=== PATIENT | female | born 1960 | race Caucasian/White ===

== ENCOUNTER → 2016-02-29 | Outpatient (REF) | payer BC ==
[~2016-02-29] MED LIST: ACET65TA; ADVAIR; ALBU17IN2; ANTI25TA; BABY81CH; DEPA500T2; LISI10TA4; MAXZ75TA2; PROV90AE; SIMV10TA2
[2016-02-29 17:15] LABS: BASO % 0.6 % (0.0-1.0); EOS # 0.2 K/mm3 (0.0-0.50); EOS % 2.2 % (0.0-3.0); LARGE UNSTAINED CELL # 0.1 K/mm3 (0.0-0.4); LYMPH % 23.5 % (24.0-44.0); MEAN CORPUSCULAR HEMOGLOBIN 32.2 pg (27.0-33.0); MEAN CORPUSCULAR HGB CONC 34.6 g/dl (32.0-36.5); MEAN CORPUSCULAR VOLUME 93.1 fl (80.0-96.0); MONO # 0.3 K/mm3 (0.0-0.8); MONO % 3.6 % (0.0-5.0); NEUTROPHILS # 5.9 K/mm3 (1.8-7.7); NEUTROPHILS % 69.1 % (36.0-66.0); PLATELET COUNT, AUTOMATED 297 k/mm3 (150-450); RED CELL DISTRIBUTION WIDTH 11.7 % (11.5-14.5); WHITE BLOOD COUNT 8.6 K/mm3 (4.0-10.0)
[2016-02-29 17:20] LABS: VITAMIN B12 LEVEL 388 PG/ML (247-911)
[2016-02-29 18:32] LABS: ERYTHROCYTE SEDIMENTATION RATE 5 mm/hr (0-30)
[2016-03-02 14:09] LABS: Lyme Disease IgG/IgM Antibodie <0.91 ISR (0.00-0.90); Lyme Disease IgM Ab Quantitati <0.80 index (0.00-0.79)
== END ==
LOC: M SFHCCAPE 07:43
PROVIDERS: ATTEND Physician Assistant
DX: M25.50 Pain in unspecified joint (principal)

== ENCOUNTER → 2016-11-27 | Outpatient (REF) | payer BC ==
[2016-11-27 17:36] LABS: BASO % 0.4 % (0.0-1.0); EOS # 0.2 10^3/uL (0.0-0.50); EOS % 1.7 % (0.0-3.0); IMMATURE GRANULOCYTE % 0.3 % (0-0); LYMPH # 2.2 10^3/uL (1.5-4.5); LYMPH % 21.9 % (24.0-44.0); MEAN CORPUSCULAR HEMOGLOBIN 31.7 pg (27.0-33.0); MEAN CORPUSCULAR HGB CONC 33.9 g/dl (32.0-36.5); MEAN CORPUSCULAR VOLUME 93.6 fl (80.0-96.0); MONO # 0.5 10^3/uL (0.0-0.8); MONO % 5.1 % (0.0-5.0); NEUTROPHILS # 7.1 10^3/uL (1.8-7.7); NEUTROPHILS % 70.6 % (36.0-66.0); PLATELET COUNT, AUTOMATED 278 10^3/uL (150-450); RED CELL DISTRIBUTION WIDTH 11.9 % (11.5-14.5); WHITE BLOOD COUNT 10.1 10^3/uL (4.0-10.0)
[2016-11-27 17:47] LABS: ADD MORPHOLOGY? NO
[2016-11-27 19:36] LABS: ALBUMIN 3.9 GM/DL (3.2-5.2); ALBUMIN/GLOBULIN RATIO 1.26 (1.00-1.93); ALKALINE PHOSPHATASE 106 U/L (45-117); ALT/SGPT 25 U/L (12-78); ANION GAP 7 MEQ/L (8-16); AST/SGOT 10 U/L (15-37); BLOOD UREA NITROGEN 10 MG/DL (7-18); CARBON DIOXIDE LEVEL 28 MEQ/L (21-32); CHLORIDE LEVEL 108 MEQ/L (98-107); CHOLESTEROL LEVEL 180 MG/DL (<200); FREE T4 0.84 NG/DL (0.76-1.46); GLOMERULAR FILTRATION RATE > 60.0 (>51); GLUCOSE, FASTING 80 MG/DL (70-105); POTASSIUM SERUM 4.2 MEQ/L (3.5-5.1); SODIUM LEVEL 143 MEQ/L (136-145); TRIGLYCERIDES LEVEL 158 MG/DL (<150)
== END ==
LOC: M SFHCCAPE 07:01
PROVIDERS: ATTEND Physician Assistant
DX: I10 Essential (primary) hypertension (principal)

== ENCOUNTER → 2017-09-11 | Outpatient (REF) | payer BC ==
[2017-09-11 16:50] LABS: ALBUMIN 4.2 GM/DL (3.2-5.2); ALBUMIN/GLOBULIN RATIO 1.24 (1.00-1.93); ALKALINE PHOSPHATASE 107 U/L (45-117); ALT/SGPT 25 U/L (12-78); ANION GAP 8 MEQ/L (8-16); AST/SGOT 10 U/L (7-37); BILIRUBIN,TOTAL 0.9 MG/DL (0.2-1.0); BLOOD UREA NITROGEN 16 MG/DL (7-18); CALCIUM LEVEL 9.6 MG/DL (8.5-10.1); CARBON DIOXIDE LEVEL 29 MEQ/L (21-32); CHLORIDE LEVEL 107 MEQ/L (98-107); CHOLESTEROL LEVEL 151 MG/DL (<200); CHOLESTEROL RISK RATIO 2.849 (<5); CREATININE FOR GFR 0.71 MG/DL (0.55-1.30); GLOMERULAR FILTRATION RATE > 60.0 (>51); GLUCOSE, FASTING 89 MG/DL (70-100); HDL CHOLESTEROL 53 MG/DL (>40); LDL CHOLESTEROL 81.6 MG/DL (<100); NON-HDL-C 98 MG/DL; POTASSIUM SERUM 3.9 MEQ/L (3.5-5.1); SODIUM LEVEL 144 MEQ/L (136-145); TOTAL PROTEIN 7.6 GM/DL (6.4-8.2); TRIGLYCERIDES LEVEL 82 MG/DL (<150)
[2017-09-11 17:06] LABS: BASO % 0.4 % (0.0-1.0); EOS # 0.2 10^3/uL (0.0-0.50); EOS % 1.6 % (0.0-3.0); HEMATOCRIT 45.1 % (36.0-47.0); HEMOGLOBIN 15.7 g/dl (12.0-15.5); IMMATURE GRANULOCYTE % 0.3 % (0-3.0); LYMPH # 2.6 10^3/uL (1.5-4.5); LYMPH % 24.6 % (24.0-44.0); MEAN CORPUSCULAR HEMOGLOBIN 32.4 pg (27.0-33.0); MEAN CORPUSCULAR HGB CONC 34.8 g/dl (32.0-36.5); MONO # 0.6 10^3/uL (0.0-0.8); MONO % 5.6 % (0.0-5.0); NEUTROPHILS # 7.1 10^3/uL (1.8-7.7); NEUTROPHILS % 67.5 % (36.0-66.0); PLATELET COUNT, AUTOMATED 324 10^3/uL (150-450); RED BLOOD COUNT 4.85 10^6/uL (4.00-5.40); RED CELL DISTRIBUTION WIDTH 11.8 % (11.5-14.5); WHITE BLOOD COUNT 10.5 10^3/uL (4.0-10.0)
== END ==
LOC: M SFHCCAPE 07:49
DX: I10 Essential (primary) hypertension (principal); E78.5 Hyperlipidemia, unspecified

== ENCOUNTER → 2017-09-22 | Outpatient (CLI) | payer BC | LOC: M RAD 07:50 | DX: Z87.891 Personal history of nicotine dependence (principal); Z12.2 Encounter for screening for malignant neoplasm of respiratory organs | CPT/HCPCS: G0297 ==

== ENCOUNTER → 2018-06-16 | Outpatient (REF) | payer BC | LOC: M LAB REF 13:42 | PROVIDERS: ATTEND Physician Assistant | DX: N63.20 Unspecified lump in the left breast, unspecified quadrant (principal) ==

== ENCOUNTER → 2018-10-13 | Outpatient (REF) | payer BC ==
[2018-10-13 16:45] LABS: BASO % 0.4 % (0.0-1.0); EOS # 0.3 10^3/uL (0.0-0.50); EOS % 3.6 % (0.0-3.0); HEMATOCRIT 43.3 % (36.0-47.0); HEMOGLOBIN 14.9 g/dl (12.0-15.5); LYMPH # 1.5 10^3/uL (1.5-4.5); MEAN CORPUSCULAR HEMOGLOBIN 32.1 pg (27.0-33.0); MEAN CORPUSCULAR HGB CONC 34.4 g/dl (32.0-36.5); MEAN CORPUSCULAR VOLUME 93.3 fl (80.0-96.0); MONO # 0.5 10^3/uL (0.0-0.8); MONO % 6.4 % (0.0-5.0); NEUTROPHILS # 5.8 10^3/uL (1.8-7.7); NEUTROPHILS % 71.2 % (36.0-66.0); PLATELET COUNT, AUTOMATED 271 10^3/uL (150-450); RED BLOOD COUNT 4.64 10^6/uL (4.00-5.40); WHITE BLOOD COUNT 8.2 10^3/uL (4.0-10.0)
[2018-10-13 17:12] LABS: ALBUMIN 3.8 GM/DL (3.2-5.2); ALT/SGPT 19 U/L (12-78); BLOOD UREA NITROGEN 19 MG/DL (7-18); CALCIUM LEVEL 8.9 MG/DL (8.5-10.1); CARBON DIOXIDE LEVEL 25 MEQ/L (21-32); CHLORIDE LEVEL 110 MEQ/L (98-107); CHOLESTEROL LEVEL 151 MG/DL (<200); CHOLESTEROL RISK RATIO 2.903 (<5); CREATININE FOR GFR 0.79 MG/DL (0.55-1.30); GLOMERULAR FILTRATION RATE > 60.0 (>51); GLUCOSE, FASTING 92 MG/DL (70-100); HDL CHOLESTEROL 52 MG/DL (>40); LDL CHOLESTEROL 79 MG/DL (<100); NON-HDL-C 99 MG/DL; POTASSIUM SERUM 4.5 MEQ/L (3.5-5.1); SODIUM LEVEL 142 MEQ/L (136-145); TOTAL PROTEIN 6.4 GM/DL (6.4-8.2); TRIGLYCERIDES LEVEL 101 MG/DL (<150)
== END ==
LOC: M SFHCCAPE 07:02
PROVIDERS: ATTEND Physician Assistant
DX: E78.5 Hyperlipidemia, unspecified (principal)

== ENCOUNTER → 2018-11-02 | Outpatient (CLI) | payer BC ==
--- NOTE | 2018-11-02 18:39 | REP ---
CT chest without contrast: Low-dose screening exam. History: Nicotine dependence. Comparison chest CT study is from September 22, 2017. Comparison chest x-ray April 07, 2015. Chest CT findings: Preliminary digital transportation agent radiograph is unremarkable. There is minimal linear fibrosis in the right base. This is unchanged. Axial CT images demonstrate fibrotic changes in both lung bases status quo. There is a new 6 mm less than solid nodular density in the right lower lobe on page 62 of 102 in today's exam. There is a new zone of linear fibrosis versus discoid atelectasis in the right apex posteromedially. No other new pulmonary nodule is appreciated. No pulmonary mass lesion is seen. Impression: There is a new less than solid nodular opacity in the right lower lobe 6 mm in diameter. Lung Rads category three probably benign findings. 6-month follow-up CT study recommended. Electronically Signed by Hilton Vallejo MD 11/02/2018 06:40 P
== END ==
LOC: M RAD 10:48
PROVIDERS: ATTEND Physician Assistant
DX: Z12.2 Encounter for screening for malignant neoplasm of respiratory organs (principal); Z87.891 Personal history of nicotine dependence; R91.1 Solitary pulmonary nodule

== ENCOUNTER → 2019-01-13 | Outpatient (CLI) | payer BC ==
[~2019-01-13] MED LIST changes: +ISOVUE-370 76% 100ML VIAL (Q9967) As Ordered ONE
--- NOTE | 2019-01-13 17:27 | REP ---
CT abdomen without and with IV contrast: Without oral contrast. History: Abnormal MRI. Focus of adrenals. No comparison MRI studies available. CT contrast dose: 100 mL of intravenous Isovue 370. Technique: Precontrast 3 mm thin sections are obtained through the adrenals and abdomen. Dual-phase postcontrast imaging is acquired with portal venous and 15-minute delayed phase images. Findings: The noncontrast study demonstrates a low-density left adrenal nodule measuring 2.1 cm in greatest diameter. Mean Hounsfield unit density is -9 Hounsfield units. This is consistent with intralesional fat. There is some contrast enhancement and washout. No right adrenal lesion is observed. No focal hepatic or splenic lesion is seen. A small accessory splenule is noted. No abnormality is noted in the pancreas. The gallbladder is surgically absent. The kidneys enhance symmetrically and are morphologically intact. Impression: There is evidence of a 2.1 cm benign left adrenal adenoma. No other significant abnormality. Post cholecystectomy. Electronically Signed by Hilton Vallejo MD 01/14/2019 10:03 A
== END ==
LOC: M RAD 15:01
PROVIDERS: ATTEND Physician Assistant
DX: D35.02 Benign neoplasm of left adrenal gland (principal); R93.89 Abnormal findings on diagnostic imaging of other specified body structures; Z90.49 Acquired absence of other specified parts of digestive tract
CPT/HCPCS: 74170; Q9967

== ENCOUNTER → 2019-03-11 | Outpatient (CLI) | payer BC ==
[~2019-03-11] MED LIST changes: -ISOVUE-370 76% 100ML VIAL (Q9967) As Ordered ONE
--- NOTE | 2019-03-12 03:05 | ECWPNPC ---
PATIENT NAME: RODNEY GOODWIN : 1960 GENDER: FEMALE VISIT DATE: 03/11/2019 DISCHARGE DATE: 03/11/19 1024 VISIT LOCKED DATE TIME: PHYSICIAN: NAYELI BAJWA RESOURCE: NAYELI BAJWA REASON FOR APPOINTMENT 1. BCBS- LOW BACK PAIN CHECKING IN HISTORY OF PRESENT ILLNESS PAIN SCREENIN-YEAR-OLD FEMALE REFERRED BY MAHNAZ ZIEGLER, [facility] FOR CHRONIC LOW BACK PAIN. PAIN BEGAN IN APPROXIMATELY 2009. DENIES PRECIPITATING EVENT. HIS TRIALED MULTIPLE DIFFERENT MEDICATIONS AND INTERVENTIONAL THERAPY OVER THE PAST 5 YEARS. REPORTS IMPROVEMENT WITH USE OF HYDROCODONE. DENIES IMPROVEMENT WITH INTERVENTIONAL TREATMENTS TO INCLUDE RADIOFREQUENCY ABLATION. FOLLOWS WITH DR. JOSEF DURHAM ORTHOPEDIC SURGEON FOR CHRONIC BACK PAIN. SHE IS STATUS POST RIGHT KNEE REPLACEMENT IN DECEMBER 2018. THEY HAVE BREAST CANCER DIAGNOSED LAST YEAR AND COMPLETED RADIATION IN SEPTEMBER 2018. DESCRIBES PAIN CONTINUOUS AND ACHING. REPORTS EPISODES WHERE PAIN AWAKENS HER FROM SLEEP. RATING PAIN VAS 8/10. DENIES BOWEL OR BLADDER INCONTINENCE. PATIENT HAS A COMPLAINT OF ACUTE OR CHRONIC PAIN :YES FALL RISK SCREENING: SCREENING :NO FALLS REPORTED IN THE LAST YEAR CURRENT MEDICATIONS TAKING TAMOXIFEN CITRATE 10 MG TABLET 1 TABLET ORALLY DAILY TAKING LISINOPRIL 40 40 MG TABLET 1 TAB ORAL ONCE DAILY TAKING MOBIC 15 MG TABLET 1 TABLET ORALLY ONCE A DAY TAKING VENTOLIN HFA 108 (90 BASE) MCG/ACT AEROSOL SOLUTION 2 PUFFS INHALATION 4 TIMES A DAY NEEDED TAKING SYMBICORT 80-4.5 MCG/ACT AEROSOL 2 PUFFS INHALATION TWICE A DAY TAKING LIPITOR 40 MG TABLET 1 TABLET ORALLY ONCE A DAY TAKING AMLODIPINE BESYLATE 10 MG TABLET 1 TABLET ORALLY ONCE A DAY TAKING LASIX 40 MG TABLET 1 TABLET ORALLY DAILY PRN NOT-TAKING GABAPENTIN 100 MG CAPSULE 1 CAPSULE ORALLY ONCE A DAY NOT-TAKING NORCO 5-325 MG TABLET 1 TABLET NEEDED ORALLY EVERY 8 HOURS (MDD3) NOT-TAKING ASPIRIN 325 MG TABLET 1 TABLET ORALLY ONCE A DAY NOT-TAKING FLUCONAZOLE 150 MG TABLET 1 TABLET ORALLY DAILY MEDICATION LIST REVIEWED AND RECONCILED WITH THE PATIENT PAST MEDICAL HISTORY HYPERTENSION ASTHMA HYPERLIPIDEMIA TENOSYNOVITIS PERIMENOPAUSE H/O HSV STRESS TEST DONE BY DR RODRIGUES IN 2016 NORMAL BREAST CA BASAL CELL CARCINOMA 2015 CHRONIC LOW BACK PAIN SPINAL STENOSIS ALLERGIES SHRIMP: HIVES, RASH - ALLERGY ACETAMINOPHEN-CODEINE #3: CHEST PAINS - ALLERGY SURGICAL HISTORY HYSTERECTOMY 1994 CHOLECYSTECTOMY 2009 LASIK 1999 HEART CATHETERIZATION 07/2009 BASAL CELL CA, LOWER L NOSTRIL (EXCISED) FOLLOWED BY DR RICKS IN [place] 10/2013 COLONOSCOPY 2014, 201105/15/2011 RIGHT KNEE ARTHOSCOPY 08/2015 LUMPECTOMY-LEFT BREAST 2018 RIGHT KNEE TOTAL REPLACEMENT 12/2018 FAMILY HISTORY FATHER: 83 YRS, AMI, STROKE, DIAGNOSED WITH HYPERTENSION, UNSPECIFIED HEART DISEASE, UNSPECIFIED CEREBRAL ARTERY OCCLUSION WITH CEREBRAL INFARCTION MOTHER: ALIVE 83 YRS, HTN, HIGH CHOLESTEROL, STROKE, PLAVIX, DEPRESSION, HYPERTENSION SIBLINGS: ALIVE 60,59,57 YRS, SISTERS-ALL HTN SON(S): ALIVE 36 YRS, HTN PATERNAL GRAND FATHER: HYPERTENSION PATERNAL GRAND MOTHER: HYPERTENSION 3 SISTER(S) - HEALTHY. 1 SON(S) - HEALTHY. DENIES BREAST, COLON OR OVARIAN CANCER HISTORY. SOCIAL HISTORY GENERAL: TOBACCO USE ARE YOU A:FORMER SMOKER HOW LONG HAS IT BEEN SINCE YOU LAST SMOKED?1-3 MONTHS VAPORNO E-CIGARETTENO SMOKING CESSATION INFORMATION GIVEN01/11/2019 HIV / HEP-C SCREENING HIV TEST OFFERED TO PATIENT:YES DATE OFFERED:01/11/2019 CONSENT SIGNED TEST ACCEPTED:NO HEP-C TEST OFFERED TO PATIENT:YES DATE OFFERED:01/11/2019 REASON:PATIENT DECLINED TEST ACCEPTED:NO CONSENT SIGNED REASON:PATIENT DECLINED BROCHURE PROVIDED TO PATIENTNO -DECLINED OTHERS AT HOME: LIVES WITH HER 1 CAT, 2 DOGS; BOYFRIEND. DIET: NO HX EATING DISORDERS. LANGUAGE YAKUT. DOMESTIC VIOLENCE DO YOU FEEL SAFE IN YOUR ENVIRONMENT?YES NEW PATIENT PAIN DIARY FROM 0-10, WHAT LEVEL IS YOUR PAIN TODAY? 05/03 CHRONIC BACK PAIN BMI CARE GOAL FOLLOW-UP ABOVE NORMAL BMI FOLLOW-UPDIETARY NEEDS EDUCATION RECREATIONAL DRUG USE DRUG USE?NO EXERCISE: WALKING AND VERY ACTIVE THROUGH WORK AT [employer]. LEARNING BARRIERS / SPECIAL NEEDS CHANGE FROM LAST VISIT?NO 01/11/19 BARRIERS TO LEARNING?NO HEARING IMPAIRED?NO VISION IMPAIRED?YES :CORRECTIVE LENSES COGNITIVELY IMPAIRED?NO READINESS TO LEARN?YES LEARNING PREFERENCES?NO LEARNING CAPABILITIES PRESENT?YES EMOTIONAL BARRIERS?NO SPECIAL DEVICES?NO EVENT DECORATOR AND DESIGNER NEEDED?NO LUNG CANCER SCREENING SMOKING STATUS:FORMER SMOKER IS THE PATIENT BETWEEN THE AGE OF 54 AND 76?YES HAVE YOU QUIT SMOKING WITHIN THE PAST 15 YEARS?YES PAIN CLINIC PFS, CLERGY, PUBLIC HEALTH REFERRALS HAS THE PATIENT BEEN EDUCATED REGARDING HIS/HER PLAN OF CARE?YES HAS THE PATIENT BEEN EDUCATED REGARDING PAIN, THE RISK FOR PAIN, THE IMPORTANCE OF EFFECTIVE PAIN MANAGEMENT, AND THE PAIN ASSESSMENT PROCESS?YES LATEX QUESTIONNAIRE LATEX ALLERGY : HAVE YOU EVER DEVELOPED ANY TYPE OF REACTION AFTER HANDLING LATEX PRODUCTS SUCH RUBBER GLOVES, CONDOMS, DIAPHRAGMS, BALLOONS, SOCKS, OR UNDERWEAR?NO LATEX ALLERGY : HAVE YOU EVER DEVELOPED ANY TYPE OF REACTION DURING OR AFTER DENTAL APPOINTMENT, VAGINAL/RECTAL EXAMINATION, SURGICAL PROCEDURE, OR ANY OTHER EXPOSURE?NO LATEX RISK : HAVE YOU EVER HAD ANY DIFFICULTY BREATHING OR HIVES AFTER EATING OR HANDLING ANY FRUITS, OR VEGETABLES; SUCH KIWI, BANANAS, STONE FRUITS, OR CHESTNUTSNO LATEX RISK : DO YOU HAVE A PREVIOUS PERSONAL HISTORY OF MORE THAN NINE SURGERIES, SPINA BIFIDA, OR REPEATED CATHERIZATIONS? NO LATEX RISK : ARE YOU FREQUENTLY EXPOSED TO LATEX PRODUCTS IN YOUR OCCUPATION?YES PT STATES SHE USES LATEX PRODUCTS AT WORK DATE ASKED : 03/11/2019 CAFFEINE 2/DAY. ADVANCE DIRECTIVE ADVANCE DIRECTIVE DISCUSSED WITH PATIENT:YES PT DOES NOT HAVE HCP AND DECLINES INFORMATION OR ASSISTANCE WITH FORM TODAY. 03/11/19 PENTECOSTAL NO ZOROASTRIANISM BELIEFS THAT WOULD IMPACT HEALTH CARE. MARITAL STATUS: . 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 REVIEWED WITH PATIENT 03/11/2019 0940 BV. HOSPITALIZATION/MAJOR DIAGNOSTIC PROCEDURE SURGERY REVIEW OF SYSTEMS REVIEWED BY: PROVIDER: NAYELI CRUZ . CONSTITUTIONAL: ANY CHANGE IN YOUR MEDICAL CONDITION? NO . CHILLS NO . FEVER NO . INFECTION: DO YOU HAVE NEW INFECTIONS? NO . DO YOU HAVE HISTORY OF MRSA? NO . MUSCULOSKELETAL: ANY NEW PATTERNS OF PAIN OR NUMBNESS? NO . SYTEMIC LUPUS NO . GASTROENTEROLOGY: ANY NEW CHANGE IN BOWEL CONTROL? NO . BARRETTS ESOPHAGUS NO . CIRRHOSIS NO . HEPATITIS NO . LIVER FAILURE NO . ACID REFLUX NO . UNEXPLAINED WEIGHT LOSS NO . GENITOURINARY: ANY NEW CHANGE IN BLADDER CONTROL? NO . IS THERE A CHANCE YOU COULD BE ? NO . HEMATOLOGY/LYMPH: DO YOU TAKE ANY BLOOD THINNERS? (FOR EXAMPLE- COUMADIN, PLAVIX, AGGRENOX, PLATEL, PRADAXA, OR XARELTO) NO . WHEN WAS YOUR LAST DOSE? DATE: TIME: . LOW PLATELET COUNT NO . SICKLE CELL DISEASE NO . VON WILLIEBRANDS NO . FACTOR V LEIDEN NO . THALLASEMIA NO . ANEMIA NO . EASY BRUISING NO . NEUROLOGY: HAVE YOU FALLEN IN THE PAST 12 MONTHS? NO . ANY NEW EXTREMITY NUMBNESS OR WEAKNESS? NO . HEAD INJURY NO . DEMENTIA NO . CEREBRAL PALSY NO . MULTIPLE SCLEROSIS NO . DIZZINESS NO . HEADACHE NO . STROKES NO . VERTIGO NO . CARDIOLOGY: DO YOU HAVE A PACEMAKER OR DEFIBRILLATOR? NO . ANGINA NO . HEART ATTACK NO . HEART SURGERY NO . CONGESTIVE HEART FAILURE/FLUID OVERLOAD NO . CHEST PAIN NO . HIGH BLOOD PRESSURE NO, ON MEDICATION(S) . IRREGULAR HEART BEAT NO . RESPIRATORY: HAVE YOU BEEN SICK IN THE PAST WEEK? NO . FEVER NO . FLU LIKE SYMPTOMS? NO . CPAP NO . BYPAP NO . ASTHMA YES, MILD . EMPHYSEMA NO . CHRONIC LUNG DISEASES NO . SHORTNESS OF BREATH ON EXERTION NO . COUGH NO . SNORING NO . INTEGUMENTARY: DO YOU HAVE ANY RASHES OR OPEN SORES? NO . ALLERGIC/IMMUNO: ARE YOU ALLERGIC TO IV DYE? NO . ANY NEW ALLERGIES? NO . PSYCHIATRIC: DO YOU HAVE THOUGHTS OF HURTING YOURSELF OR SOMEONE ELSE? NO . ARE YOU ABUSED, NEGLECTED, OR IN AN UNSAFE ENVIRONMENT? NO . ENDOCRINOLOGY: ARE YOU DIABETIC? NO . THYROID DISORDER NO . OTHER: DO YOU NEED ANY PRESCRIPTIONS? NO . IF YES, PLEASE LIST: ____ . ANY NEW PROBLEMS WITH YOUR MEDICATIONS? NO . WHEN DID YOU LAST EAT? ____ . WHEN DID YOU LAST DRINK? ____ . WHAT DID YOU LAST DRINK? ____ . NAME OF PERSON DRIVING YOU HOME? ____ . DO YOU HAVE ANY OTHER QUESTIONS OR CONCERNS NO . VITAL SIGNS WT 198.2 LBS, HT 67 IN, BMI 31.04 INDEX, BP 141/79 MM HG, HR 104 /MIN, RR 18 /MIN, TEMP 98.5 F, OXYGEN SAT % 98%, SAFE IN ENV? (Y/N) YES, NA INITIALS BERE YU 03/11/2019 9:28. EXAMINATION GENERAL EXAMINATION: GENERALAWAKE,ALERT ,PLEAASANT . PSYCHAFFECT NORMAL . NECK:TRACHEA MIDLINE. NO CERVICAL OR SUPRACLAVICULAR LYMPHADENOPATHY NOTED. LUNGS:LUNG GIANG ARE CLEAR TO AUSCULTATION BILATERALLY. GOOD MOVEMENT OF AIR . HEART:S1, S2 IN A REGULAR RATE AND RHYTHM. NO SIGNIFICANT MURMURS, RUBS OR GALLOPS NOTED . ABDOMEN:SOFT/NONTENDER. MUSCULOSKELETAL:WEEK OVER RIGHT LEG.. FOR BILAT. SIJ PALPATION:POSITIVE FOR PAIN OVER L/S SPINE. POSITIVE FOR PAIN OVER L/S PARASPINALS. , TRIGGER POINT-BILAT THORACIC AND LUMBAR PARASPINAL TENDER OVER LEFT SIJ. CERVICALNEGATIVE FOR PAIN WITH PALPATION OF CERVICAL SPINE. NEGATIVE FOR PAIN WITH PALPATION OF CERVICAL PARASPINALS. NEGATIVE FOR PAIN WITH PALPATION OF TRAPEZIUS BILAT. SKIN:NO RASH OR SKIN LESIONS. NEUROLOGIC EXAM:CN'S NORMAL TESTED . DIAGNOSTIC TESTS REVIEWEDMRI L/S SPINE-12/23/2018 . ASSESSMENTS LUMBAR FACET ARTHROPATHY - M47.816 (PRIMARY) TREATMENT LUMBAR FACET ARTHROPATHY START NORCO TABLET, 5-325 MG, 1 TABLET NEEDED, ORALLY, Q8H PRN MDD3 #40 TAB SHOULD LAST 30 DAYS, 30 DAYS, 40, REFILLS 0 NOTES: ISTOP REGISTRY REVIEWED AND DEMONSTRATES COMPLLIANCE., RISKS OF NARCOTIC/OPIOD MEDICATIONS INCLUDES BUT IS NOT LIMITED TO RISK OF DEPENDANCE/DEVELOPMENT OF ADDICTION, MOOD DISTURBANCE AND DEPRESSION, OSTEOPOROSIS, HORMONAL AND LABIDAL CHANGES, RESPIRATORY DEPRESSION AND . PATIENT IS ADVISED NOT TO DRIVE OR DRINK ALCOHOL WHILE ON THESE MEDICATIONS, [facility] NARCOTIC AGREEMENT WAS REVIEWED AND SIGNED TODAY BY THE PATIENT. SEE ATTACHED DOCUMENT FOR FULL DETAILS; SPECIFIC ISSUES WERE REVIEWED: 1) KEEP PAIN MEDS IN THEIR ORIGINAL BOTTLES AND ANY WEEKLY PLANNERS ARE TO BE BROUGHT TO THE PAIN CENTER AT EVERY VISIT. 2) THE PATIENT IS NOT TO INCREASE DOSING OR TIMING OF THEIR PAIN MEDICATION WITHOUT SPECIFIC DIRECTION OF THEIR PAIN CENTERPROVIDER (NOT ER OR OTHER PROVIDERS). 3) ALL PAIN MEDS ARE TO BE KEPT SECURED, IN A LOCKED BOX. 4) NO PAIN MEDS ARE TO BE SHARED WITH ANY OTHER PERSON FOR ANY REASON. 5) NO PAIN MEDS MAY BE TAKEN FROM ANY FRIENDS OR RELATIVES FOR ANY REASON 6) NO MEDS OR SUBSTANCES WHICH ARE NOT LEGAL ARE TO BE USED- NO MARIJUANA, NO COCAINE, AMPHETAMINES, HEROIN, OR OTHERS ARE EVER TO BE USED. 7)URINE TESTING IS DONE TO ACCOUNT FOR MEDS AND SUBSTANCES BEING TAKEN AND WILL BE DONE RANDOMLY. PROCEDURE CODES FA211 ESTABILISHED PATIENT [facility] FACILITY CHARGE DISPOSITION & COMMUNICATION FOLLOW UP 6 WEEKS (REASON: MED MGMNT) ELECTRONICALLY SIGNED BY NANCY MUNIZ ON 03/11/2019 AT 03:09 PM EST DISCLAIMER : THIS IS A VISIT SUMMARY EXTRACTED FROM THE [employer] CHART. IT IS NOT A COPY OF THE [employer] PROGRESS NOTE. JAVIER
== END ==
LOC: M PAIN 09:00
PROVIDERS: ATTEND Nurse Practitioner Family
DX: M47.816 Spondylosis without myelopathy or radiculopathy, lumbar region (principal)

== ENCOUNTER → 2019-04-13 | Outpatient (CLI) | payer BC ==
--- NOTE | 2019-04-27 05:57 | ECWPNPC ---
PATIENT NAME: RODNEY GOODWIN : 1960 GENDER: FEMALE VISIT DATE: 04/13/2019 DISCHARGE DATE: 04/13/19 1005 VISIT LOCKED DATE TIME: PHYSICIAN: NAYELI BAJWA RESOURCE: NAYELI BAJWA REASON FOR APPOINTMENT 1. 4-6 WEEKS HISTORY OF PRESENT ILLNESS HISTORY OF PRESENT ILLNESS: HERE FOR HER 6 WEEK FOLLOW-UP AND MEDICINE MANAGEMENT FOR CHRONIC LOW BACK PAIN. CURRENTLY USING HYDROCODONE 5/325 PERIODICALLY FOR SEVERE PAIN EPISODES, WHICH SHE FINDS HELPFUL WITHOUT SIDE EFFECTS. FOLLOWING WITH DR. BAHENA ORTHOPEDIC SURGEON IN [place]. HAD INJECTION THERAPY IN THE RECENT PAST AT THEIR OFFICE, WHICH WAS NOT HELPFUL. SHE CURRENTLY IS LAID OFF BUT WOULD CONSIDER DOING INTERVENTIONAL TREATMENTS ONCE SHE IS BACK TO WORK AND PAIN WILL BE INCREASED. RATING PAIN LEVEL AN 8/10 VAS. APPEARS COMFORTABLE AND SMILING DURING INTERVIEW. PAIN THE PATIENT DESCRIBES THE PAIN... FALL RISK SCREENING: SCREENING :NO FALLS REPORTED IN THE LAST YEAR CURRENT MEDICATIONS TAKING TAMOXIFEN CITRATE 10 MG TABLET 1 TABLET ORALLY DAILY TAKING LISINOPRIL 40 40 MG TABLET 1 TAB ORAL ONCE DAILY TAKING MOBIC 15 MG TABLET 1 TABLET ORALLY ONCE A DAY TAKING VENTOLIN HFA 108 (90 BASE) MCG/ACT AEROSOL SOLUTION 2 PUFFS INHALATION 4 TIMES A DAY NEEDED TAKING SYMBICORT 80-4.5 MCG/ACT AEROSOL 2 PUFFS INHALATION TWICE A DAY TAKING LIPITOR 40 MG TABLET 1 TABLET ORALLY ONCE A DAY TAKING AMLODIPINE BESYLATE 10 MG TABLET 1 TABLET ORALLY ONCE A DAY TAKING LASIX 40 MG TABLET 1 TABLET ORALLY DAILY PRN TAKING NORCO 5-325 MG TABLET 1 TABLET NEEDED ORALLY Q8H PRN MDD3 #40 TAB SHOULD LAST 30 DAYS UNKNOWN GABAPENTIN 100 MG CAPSULE 1 CAPSULE ORALLY ONCE A DAY UNKNOWN NORCO 5-325 MG TABLET 1 TABLET NEEDED ORALLY EVERY 8 HOURS (MDD3) UNKNOWN ASPIRIN 325 MG TABLET 1 TABLET ORALLY ONCE A DAY UNKNOWN FLUCONAZOLE 150 MG TABLET 1 TABLET ORALLY DAILY MEDICATION LIST REVIEWED AND RECONCILED WITH THE PATIENT PAST MEDICAL HISTORY HYPERTENSION ASTHMA HYPERLIPIDEMIA TENOSYNOVITIS PERIMENOPAUSE H/O HSV STRESS TEST DONE BY DR RODRIGUES IN 2016 NORMAL BREAST CA BASAL CELL CARCINOMA 2014 CHRONIC LOW BACK PAIN SPINAL STENOSIS ALLERGIES SHRIMP: HIVES, RASH - ALLERGY ACETAMINOPHEN-CODEINE #3: CHEST PAINS - ALLERGY SURGICAL HISTORY HYSTERECTOMY 1994 CHOLECYSTECTOMY 2009 LASIK 1999 HEART CATHETERIZATION 07/2009 BASAL CELL CA, LOWER L NOSTRIL (EXCISED) FOLLOWED BY DR RICKS [place] 10/2013 COLONOSCOPY 2014, 201105/15/2011 RIGHT KNEE ARTHOSCOPY 08/2015 LUMPECTOMY-LEFT BREAST 2019 RIGHT KNEE TOTAL REPLACEMENT 12/2018 FAMILY HISTORY FATHER: 83 YRS, AMI, STROKE, DIAGNOSED WITH HYPERTENSION, UNSPECIFIED HEART DISEASE, UNSPECIFIED CEREBRAL ARTERY OCCLUSION WITH CEREBRAL INFARCTION MOTHER: ALIVE 83 YRS, HTN, HIGH CHOLESTEROL, STROKE, PLAVIX, DEPRESSION, HYPERTENSION SIBLINGS: ALIVE 60,59,57 YRS, SISTERS-ALL HTN SON(S): ALIVE 36 YRS, HTN PATERNAL GRAND FATHER: HYPERTENSION PATERNAL GRAND MOTHER: HYPERTENSION 3 SISTER(S) - HEALTHY. 1 SON(S) - HEALTHY. DENIES BREAST, COLON OR OVARIAN CANCER HISTORY. SOCIAL HISTORY GENERAL: TOBACCO USE ARE YOU A:FORMER SMOKER HOW LONG HAS IT BEEN SINCE YOU LAST SMOKED?1-3 MONTHS VAPORNO E-CIGARETTENO SMOKING CESSATION INFORMATION GIVEN01/11/2019 HIV / HEP-C SCREENING HIV TEST OFFERED TO PATIENT:YES DATE OFFERED:01/11/2019 CONSENT SIGNED TEST ACCEPTED:NO HEP-C TEST OFFERED TO PATIENT:YES DATE OFFERED:01/11/2019 REASON:PATIENT DECLINED TEST ACCEPTED:NO CONSENT SIGNED REASON:PATIENT DECLINED BROCHURE PROVIDED TO PATIENTNO -DECLINED OTHERS AT HOME: LIVES WITH HER 1 CAT, 2 DOGS; BOYFRIEND. DIET: NO HX EATING DISORDERS. LANGUAGE WOLOF. DOMESTIC VIOLENCE DO YOU FEEL SAFE IN YOUR ENVIRONMENT?YES NEW PATIENT PAIN DIARY FROM 0-10, WHAT LEVEL IS YOUR PAIN TODAY? 3/10 CHRONIC BACK PAIN BMI CARE GOAL FOLLOW-UP ABOVE NORMAL BMI FOLLOW-UPDIETARY NEEDS EDUCATION RECREATIONAL DRUG USE DRUG USE?NO EXERCISE: WALKING AND VERY ACTIVE THROUGH WORK AT [employer]. LEARNING BARRIERS / SPECIAL NEEDS CHANGE FROM LAST VISIT?NO 01/11/19 BARRIERS TO LEARNING?NO HEARING IMPAIRED?NO VISION IMPAIRED?YES COGNITIVELY IMPAIRED?NO :CORRECTIVE LENSES READINESS TO LEARN?YES LEARNING PREFERENCES?NO LEARNING CAPABILITIES PRESENT?YES EMOTIONAL BARRIERS?NO SPECIAL DEVICES?NO METAL TRIM ERECTOR NEEDED?NO LUNG CANCER SCREENING SMOKING STATUS:FORMER SMOKER IS THE PATIENT BETWEEN THE AGE OF 54 AND 76?YES HAVE YOU QUIT SMOKING WITHIN THE PAST 15 YEARS?YES PAIN CLINIC PFS, CLERGY, PUBLIC HEALTH REFERRALS HAS THE PATIENT BEEN EDUCATED REGARDING HIS/HER PLAN OF CARE?YES HAS THE PATIENT BEEN EDUCATED REGARDING PAIN, THE RISK FOR PAIN, THE IMPORTANCE OF EFFECTIVE PAIN MANAGEMENT, AND THE PAIN ASSESSMENT PROCESS?YES LATEX QUESTIONNAIRE LATEX ALLERGY : HAVE YOU EVER DEVELOPED ANY TYPE OF REACTION AFTER HANDLING LATEX PRODUCTS SUCH RUBBER GLOVES, CONDOMS, DIAPHRAGMS, BALLOONS, SOCKS, OR UNDERWEAR?NO LATEX ALLERGY : HAVE YOU EVER DEVELOPED ANY TYPE OF REACTION DURING OR AFTER DENTAL APPOINTMENT, VAGINAL/RECTAL EXAMINATION, SURGICAL PROCEDURE, OR ANY OTHER EXPOSURE?NO DATE ASKED : 03/11/2019 LATEX RISK : HAVE YOU EVER HAD ANY DIFFICULTY BREATHING OR HIVES AFTER EATING OR HANDLING ANY FRUITS, OR VEGETABLES; SUCH KIWI, BANANAS, STONE FRUITS, OR CHESTNUTSNO LATEX RISK : DO YOU HAVE A PREVIOUS PERSONAL HISTORY OF MORE THAN NINE SURGERIES, SPINA BIFIDA, OR REPEATED CATHERIZATIONS? NO LATEX RISK : ARE YOU FREQUENTLY EXPOSED TO LATEX PRODUCTS IN YOUR OCCUPATION?YES PT STATES SHE USES LATEX PRODUCTS AT WORK [employer]FF[employer] 2/DAY. ADVANCE DIRECTIVE ADVANCE DIRECTIVE DISCUSSED WITH PATIENT:YES PT DOES NOT HAVE HCP AND DECLINES INFORMATION OR ASSISTANCE WITH FORM TODAY. 03/11/19 MUSLIM NO SIKHISM BELIEFS THAT WOULD IMPACT HEALTH CARE. MARITAL STATUS: . 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 REVIEWED WITH PATIENT 03/11/2019 0940 BV. HOSPITALIZATION/MAJOR DIAGNOSTIC PROCEDURE SURGERY REVIEW OF SYSTEMS REVIEWED BY: PROVIDER: NAYELI CRUZ . CONSTITUTIONAL: ANY CHANGE IN YOUR MEDICAL CONDITION? NO . CHILLS NO . FEVER NO . INFECTION: DO YOU HAVE NEW INFECTIONS? NO . DO YOU HAVE HISTORY OF MRSA? NO . MUSCULOSKELETAL: ANY NEW PATTERNS OF PAIN OR NUMBNESS? NO . GASTROENTEROLOGY: ANY NEW CHANGE IN BOWEL CONTROL? NO . GENITOURINARY: ANY NEW CHANGE IN BLADDER CONTROL? NO . IS THERE A CHANCE YOU COULD BE ? NO . HEMATOLOGY/LYMPH: DO YOU TAKE ANY BLOOD THINNERS? (FOR EXAMPLE- COUMADIN, PLAVIX, AGGRENOX, PLATEL, PRADAXA, OR XARELTO) NO . WHEN WAS YOUR LAST DOSE? DATE: TIME: . NEUROLOGY: HAVE YOU FALLEN IN THE PAST 12 MONTHS? NO . ANY NEW EXTREMITY NUMBNESS OR WEAKNESS? NO . CARDIOLOGY: DO YOU HAVE A PACEMAKER OR DEFIBRILLATOR? NO . RESPIRATORY: HAVE YOU BEEN SICK IN THE PAST WEEK? NO . FEVER NO . FLU LIKE SYMPTOMS? NO . COUGH NO . INTEGUMENTARY: DO YOU HAVE ANY RASHES OR OPEN SORES? NO . ALLERGIC/IMMUNO: ARE YOU ALLERGIC TO IV DYE? NO . ANY NEW ALLERGIES? NO . PSYCHIATRIC: DO YOU HAVE THOUGHTS OF HURTING YOURSELF OR SOMEONE ELSE? NO . ARE YOU ABUSED, NEGLECTED, OR IN AN UNSAFE ENVIRONMENT? NO . ENDOCRINOLOGY: ARE YOU DIABETIC? NO . OTHER: DO YOU NEED ANY PRESCRIPTIONS? YES HYDROCODONE . IF YES, PLEASE LIST: ____ . ANY NEW PROBLEMS WITH YOUR MEDICATIONS? NO . WHEN DID YOU LAST EAT? ____ . WHEN DID YOU LAST DRINK? ____ . WHAT DID YOU LAST DRINK? ____ . NAME OF PERSON DRIVING YOU HOME? ____ . DO YOU HAVE ANY OTHER QUESTIONS OR CONCERNS NO . VITAL SIGNS WT 195.0 LBS, HT 67 IN, BMI 30.54 INDEX, BP 162/86 MM HG, HR 78 /MIN, RR 18 /MIN, TEMP 97.9 F, OXYGEN SAT % 98%, NA INITIALS AW 0923. EXAMINATION GENERAL EXAMINATION: GENERALAWAKE,ALERT ,PLEASANT . PSYCHAFFECT NORMAL . LUNGS:LUNG GIANG ARE CLEAR TO AUSCULTATION BILATERALLY. GOOD MOVEMENT OF AIR . HEART:S1, S2 IN A REGULAR RATE AND RHYTHM. NO SIGNIFICANT MURMURS, RUBS OR GALLOPS NOTED . ASSESSMENTS LUMBAR FACET ARTHROPATHY - M47.816 (PRIMARY) TREATMENT LUMBAR FACET ARTHROPATHY CONTINUE NORCO TABLET, 5-325 MG, 1 TABLET NEEDED, ORALLY, Q8H PRN MDD3 #40 TAB SHOULD LAST 30 DAYS, 30 DAYS, 40, REFILLS 0 NOTES: ISTOP REGISTRY REVIEWED AND DEMONSTRATES COMPLLIANCE. (REF # ) BRINGS IN MEDICATIONS WHICH IS APPROPRIATE FOR WHAT WAS DISPENSED. URINE TOX TODAY, RISKS OF NARCOTIC/OPIOD MEDICATIONS INCLUDES BUT IS NOT LIMITED TO RISK OF DEPENDANCE/DEVELOPMENT OF ADDICTION, MOOD DISTURBANCE AND DEPRESSION, OSTEOPOROSIS, HORMONAL AND LABIDAL CHANGES, RESPIRATORY DEPRESSION AND . PATIENT IS ADVISED NOT TO DRIVE OR DRINK ALCOHOL WHILE ON THESE MEDICATIONS. PROCEDURE CODES FA211 ESTABILISHED PATIENT [facility] CHARGE DISPOSITION & COMMUNICATION FOLLOW UP 6-8-WKS (REASON: MEED MGMNT) ELECTRONICALLY SIGNED BY NANCY MUNIZ ON 04/26/2019 AT 09:03 AM EST DISCLAIMER : THIS IS A VISIT SUMMARY EXTRACTED FROM THE [facility] [employer] [employer] [facility]. IT IS NOT A COPY OF THE [employer] PROGRESS NOTE. JAVIER
== END ==
LOC: M PAIN 09:15
PROVIDERS: ATTEND Nurse Practitioner Family
DX: M47.816 Spondylosis without myelopathy or radiculopathy, lumbar region (principal)

== ENCOUNTER → 2019-04-20 | Outpatient (REF) | payer BC ==
[2019-04-20 17:12] LABS: BASO % 0.6 % (0.0-1.0); EOS # 0.1 10^3/uL (0.0-0.5); EOS % 0.8 % (0.0-3.0); HEMATOCRIT 41.3 % (36.0-47.0); HEMOGLOBIN 14.2 g/dl (12.0-15.5); LYMPH # 1.4 10^3/uL (1.5-5.0); LYMPH % 21.7 % (24.0-44.0); MEAN CORPUSCULAR HEMOGLOBIN 32.1 pg (27.0-33.0); MEAN CORPUSCULAR HGB CONC 34.4 g/dl (32.0-36.5); MEAN CORPUSCULAR VOLUME 93.4 fl (80.0-96.0); MONO # 0.4 10^3/uL (0.0-0.8); MONO % 6.8 % (0.0-5.0); NEUTROPHILS # 4.3 10^3/uL (1.5-8.5); NEUTROPHILS % 69.9 % (36.0-66.0); PLATELET COUNT, AUTOMATED 281 10^3/uL (150-450); RED BLOOD COUNT 4.42 10^6/uL (4.00-5.40); WHITE BLOOD COUNT 6.2 10^3/uL (4.0-10.0)
[2019-04-20 17:29] LABS: ALBUMIN 3.7 GM/DL (3.2-5.2); ALT/SGPT 19 U/L (12-78); BILIRUBIN,TOTAL 0.8 MG/DL (0.2-1.0); BLOOD UREA NITROGEN 16 MG/DL (7-18); CALCIUM LEVEL 9.1 MG/DL (8.5-10.1); CARBON DIOXIDE LEVEL 26 MEQ/L (21-32); CHLORIDE LEVEL 109 MEQ/L (98-107); CHOLESTEROL LEVEL 134 MG/DL (<200); CHOLESTEROL RISK RATIO 3.526 (<5); CREATININE FOR GFR 0.67 MG/DL (0.55-1.30); FREE T4 0.96 NG/DL (0.76-1.46); GLOMERULAR FILTRATION RATE > 60.0 (>51); GLUCOSE, FASTING 90 MG/DL (70-100); HDL CHOLESTEROL 38 MG/DL (>40); LDL CHOLESTEROL 75 MG/DL (<100); NON-HDL-C 96 MG/DL; POTASSIUM SERUM 4.2 MEQ/L (3.5-5.1); SODIUM LEVEL 140 MEQ/L (136-145); TOTAL PROTEIN 6.6 GM/DL (6.4-8.2); TRIGLYCERIDES LEVEL 104 MG/DL (<150)
[2019-04-20 18:35] LABS: HEMOGLOBIN A1c 5.1 %
== END ==
LOC: M SFHCCAPE 07:02
PROVIDERS: ATTEND Physician Assistant
DX: I10 Essential (primary) hypertension (principal); E78.5 Hyperlipidemia, unspecified

== ENCOUNTER → 2019-05-10 | Outpatient (CLI) | payer BC ==
--- NOTE | 2019-05-10 20:59 | REP ---
Clinical: Follow up abnormal findings. Technique: Axial noncontrast images from the thoracic inlet to the upper abdomen with coronal and sagittal re-formations. Comparison: 11/02/2018, 09/22/2017. Findings: The there is subtle non solid 6 mm density in the anterior aspect of the right lower lobe (image 62) is again identified and in retrospect unchanged through 09/22/2017. Finding likely represents very small focal chronic scar. No acute consolidation, significant nodule, or mass lesion appreciated. No effusion. No pneumothorax. Tracheobronchial tree is patent. No adenopathy. A 3.3 cm ovoid cyst in the left breast decreased compared to 11/02/2018. Impression: 1. Non solid 6 mm density in the right lower lobe is unchanged compared through 09/22/2017. 2. No further acute pleuroparenchymal process appreciated. 3. Ovoid cystic lesion in the left breast decreased from prior examination. Electronically Signed by Deyvi Ham MD 05/10/2019 08:50 P
== END ==
LOC: M RAD 08:58
PROVIDERS: ATTEND Internal Medicine Pulmonary Disease
DX: R91.8 Other nonspecific abnormal finding of lung field (principal)

== ENCOUNTER → 2019-05-25 | Outpatient (CLI) | payer BC ==
--- NOTE | 2019-05-29 02:55 | ECWPNPC ---
PATIENT NAME: RODNEY GOODWIN : 1960 GENDER: FEMALE VISIT DATE: 05/25/2019 DISCHARGE DATE: 05/25/19 1031 VISIT LOCKED DATE TIME: PHYSICIAN: NAYELI BAJWA RESOURCE: NAYELI BAJWA REASON FOR APPOINTMENT 1. 4 TO 6 WEEK HISTORY OF PRESENT ILLNESS HISTORY OF PRESENT ILLNESS: HERE FOR FOLLOW-UP OF CHRONIC LOW BACK PAIN. PAIN HAS BEEN BAD LATELY. RATING PAIN LEVEL A 7/10 VAS. REVIEWED MRI AND DISCUSS TREATMENT OPTIONS. FINDS MEDICATION SOMEWHAT HELPFUL AT REDUCING PAIN AND KEEPING HER COMFORTABLE. PAIN HAS BEEN INTERFERING WITH ACTIVITIES OF DAILY LIVING OVER THE PAST FEW WEEKS. PAIN THE PATIENT DESCRIBES THE PAIN... FALL RISK SCREENING: SCREENING :NO FALLS REPORTED IN THE LAST YEAR CURRENT MEDICATIONS TAKING TAMOXIFEN CITRATE 10 MG TABLET 1 TABLET ORALLY DAILY TAKING LISINOPRIL 40 40 MG TABLET 1 TAB ORAL ONCE DAILY TAKING MOBIC 15 MG TABLET 1 TABLET ORALLY ONCE A DAY TAKING NORCO 5-325 MG TABLET 1 TABLET NEEDED ORALLY Q8H PRN MDD3 #40 TAB SHOULD LAST 30 DAYS TAKING LIPITOR 40 MG TABLET 1 TABLET ORALLY ONCE A DAY TAKING AMLODIPINE BESYLATE 10 MG TABLET 1 TABLET ORALLY ONCE A DAY TAKING LASIX 20 MG TABLET 1 TABLET ORALLY ONCE A DAY TAKING VENTOLIN HFA 108 (90 BASE) MCG/ACT AEROSOL SOLUTION 2 PUFFS INHALATION 4 TIMES A DAY NEEDED TAKING SYMBICORT 80-4.5 MCG/ACT AEROSOL 2 PUFFS INHALATION TWICE A DAY NOT-TAKING GABAPENTIN 100 MG CAPSULE 1 CAPSULE ORALLY ONCE A DAY NOT-TAKING NORCO 5-325 MG TABLET 1 TABLET NEEDED ORALLY EVERY 8 HOURS (MDD3) NOT-TAKING ASPIRIN 325 MG TABLET 1 TABLET ORALLY ONCE A DAY NOT-TAKING FLUCONAZOLE 150 MG TABLET 1 TABLET ORALLY DAILY MEDICATION LIST REVIEWED AND RECONCILED WITH THE PATIENT PAST MEDICAL HISTORY HYPERTENSION ASTHMA HYPERLIPIDEMIA TENOSYNOVITIS PERIMENOPAUSE H/O HSV STRESS TEST DONE BY DR RODRIGUES IN 2016 NORMAL BREAST CA BASAL CELL CARCINOMA 2014 CHRONIC LOW BACK PAIN SPINAL STENOSIS ALLERGIES SHRIMP: HIVES, RASH - ALLERGY ACETAMINOPHEN-CODEINE #3: CHEST PAINS - ALLERGY SURGICAL HISTORY HYSTERECTOMY 1994 CHOLECYSTECTOMY 2009 LASIK 2000 HEART CATHETERIZATION 07/2009 BASAL CELL CA, LOWER L NOSTRIL (EXCISED) FOLLOWED BY DR RICKS IN [place] 10/2013 COLONOSCOPY 2014, 201105/15/2011 RIGHT KNEE ARTHOSCOPY 08/2015 LUMPECTOMY-LEFT BREAST 2019 RIGHT KNEE TOTAL REPLACEMENT 12/2018 FAMILY HISTORY FATHER: 83 YRS, AMI, STROKE, DIAGNOSED WITH HYPERTENSION, UNSPECIFIED HEART DISEASE, UNSPECIFIED CEREBRAL ARTERY OCCLUSION WITH CEREBRAL INFARCTION MOTHER: ALIVE 83 YRS, HTN, HIGH CHOLESTEROL, STROKE, PLAVIX, DEPRESSION, HYPERTENSION SIBLINGS: ALIVE 60,59,57 YRS, SISTERS-ALL HTN SON(S): ALIVE 36 YRS, HTN PATERNAL GRAND FATHER: HYPERTENSION PATERNAL GRAND MOTHER: HYPERTENSION 3 SISTER(S) - HEALTHY. 1 SON(S) - HEALTHY. DENIES BREAST, COLON OR OVARIAN CANCER HISTORY. SOCIAL HISTORY GENERAL: TOBACCO USE ARE YOU A:FORMER SMOKER HOW LONG HAS IT BEEN SINCE YOU LAST SMOKED?6-12 MONTHS SMOKING CESSATION INFORMATION GIVEN01/11/2019 VAPORNO E-CIGARETTENO HIV / HEP-C SCREENING HIV TEST OFFERED TO PATIENT:YES DATE OFFERED:01/11/2019 CONSENT SIGNED TEST ACCEPTED:NO HEP-C TEST OFFERED TO PATIENT:YES DATE OFFERED:01/11/2019 REASON:PATIENT DECLINED TEST ACCEPTED:NO CONSENT SIGNED REASON:PATIENT DECLINED BROCHURE PROVIDED TO PATIENTNO -DECLINED OTHERS AT HOME: LIVES WITH HER 1 CAT, 2 DOGS; BOYFRIEND. DIET: NO HX EATING DISORDERS. LANGUAGE PORTUGUESE. DOMESTIC VIOLENCE DO YOU FEEL SAFE IN YOUR ENVIRONMENT?YES NEW PATIENT PAIN DIARY PATIENT DESCRIBES PAIN :ACHING, HAVE IT ALL THE TIME, SHOOTING FROM 0-10, WHAT LEVEL IS YOUR PAIN TODAY?7 PRECIPITATING FACTORS ACTIVITY ALLEVIATING FACTORS LAY DOWN WITH LEGS ELEVATED IMPACT ON FUNCTION YES BMI CARE GOAL FOLLOW-UP ABOVE NORMAL BMI FOLLOW-UPDIETARY NEEDS EDUCATION RECREATIONAL DRUG USE DRUG USE?NO EXERCISE: WALKING AND VERY ACTIVE THROUGH WORK AT [employer]. LEARNING BARRIERS / SPECIAL NEEDS CHANGE FROM LAST VISIT?NO 04/22/19 BARRIERS TO LEARNING?NO HEARING IMPAIRED?NO VISION IMPAIRED?YES COGNITIVELY IMPAIRED?NO :CORRECTIVE LENSES READINESS TO LEARN?YES LEARNING PREFERENCES?NO LEARNING CAPABILITIES PRESENT?YES EMOTIONAL BARRIERS?NO SPECIAL DEVICES?NO EXECUTIVE ASSISTANT NEEDED?NO LUNG CANCER SCREENING SMOKING STATUS:FORMER SMOKER IS THE PATIENT BETWEEN THE AGE OF 54 AND 76?YES HAVE YOU QUIT SMOKING WITHIN THE PAST 15 YEARS?YES PAIN CLINIC PFS, CLERGY, PUBLIC HEALTH REFERRALS HAS THE PATIENT BEEN EDUCATED REGARDING HIS/HER PLAN OF CARE?YES HAS THE PATIENT BEEN EDUCATED REGARDING PAIN, THE RISK FOR PAIN, THE IMPORTANCE OF EFFECTIVE PAIN MANAGEMENT, AND THE PAIN ASSESSMENT PROCESS?YES LATEX QUESTIONNAIRE LATEX ALLERGY : HAVE YOU EVER DEVELOPED ANY TYPE OF REACTION AFTER HANDLING LATEX PRODUCTS SUCH RUBBER GLOVES, CONDOMS, DIAPHRAGMS, BALLOONS, SOCKS, OR UNDERWEAR?NO LATEX ALLERGY : HAVE YOU EVER DEVELOPED ANY TYPE OF REACTION DURING OR AFTER DENTAL APPOINTMENT, VAGINAL/RECTAL EXAMINATION, SURGICAL PROCEDURE, OR ANY OTHER EXPOSURE?NO DATE ASKED : 03/11/2019 LATEX RISK : HAVE YOU EVER HAD ANY DIFFICULTY BREATHING OR HIVES AFTER EATING OR HANDLING ANY FRUITS, OR VEGETABLES; SUCH KIWI, BANANAS, STONE FRUITS, OR CHESTNUTSNO LATEX RISK : DO YOU HAVE A PREVIOUS PERSONAL HISTORY OF MORE THAN NINE SURGERIES, SPINA BIFIDA, OR REPEATED CATHERIZATIONS? NO LATEX RISK : ARE YOU FREQUENTLY EXPOSED TO LATEX PRODUCTS IN YOUR OCCUPATION?YES PT STATES SHE USES LATEX PRODUCTS AT WORK CAFFEINE 2/DAY. ADVANCE DIRECTIVE ADVANCE DIRECTIVE DISCUSSED WITH PATIENT:YES PT DOES NOT HAVE HCP AND DECLINES INFORMATION OR ASSISTANCE WITH FORM TODAY. SYNAGOGUE NO PROTESTANT BELIEFS THAT WOULD IMPACT HEALTH CARE. MARITAL STATUS: . 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 REVIEWED WITH PATIENT 03/11/2019 0940 BV. HOSPITALIZATION/MAJOR DIAGNOSTIC PROCEDURE SURGERY REVIEW OF SYSTEMS REVIEWED BY: PROVIDER: NAYELI CRUZ . CONSTITUTIONAL: ANY CHANGE IN YOUR MEDICAL CONDITION? NO . CHILLS NO . FEVER NO . INFECTION: DO YOU HAVE NEW INFECTIONS? NO . DO YOU HAVE HISTORY OF MRSA? NO . MUSCULOSKELETAL: ANY NEW PATTERNS OF PAIN OR NUMBNESS? NO . GASTROENTEROLOGY: ANY NEW CHANGE IN BOWEL CONTROL? NO . GENITOURINARY: ANY NEW CHANGE IN BLADDER CONTROL? NO . IS THERE A CHANCE YOU COULD BE ? NO . HEMATOLOGY/LYMPH: DO YOU TAKE ANY BLOOD THINNERS? (FOR EXAMPLE- COUMADIN, PLAVIX, AGGRENOX, PLATEL, PRADAXA, OR XARELTO) NO . WHEN WAS YOUR LAST DOSE? DATE: TIME: . NEUROLOGY: HAVE YOU FALLEN IN THE PAST 12 MONTHS? NO . ANY NEW EXTREMITY NUMBNESS OR WEAKNESS? NO . CARDIOLOGY: DO YOU HAVE A PACEMAKER OR DEFIBRILLATOR? NO . RESPIRATORY: HAVE YOU BEEN SICK IN THE PAST WEEK? NO . FEVER NO . FLU LIKE SYMPTOMS? NO . COUGH NO . INTEGUMENTARY: DO YOU HAVE ANY RASHES OR OPEN SORES? NO . ALLERGIC/IMMUNO: ARE YOU ALLERGIC TO IV DYE? NO . ANY NEW ALLERGIES? NO . PSYCHIATRIC: DO YOU HAVE THOUGHTS OF HURTING YOURSELF OR SOMEONE ELSE? NO . ARE YOU ABUSED, NEGLECTED, OR IN AN UNSAFE ENVIRONMENT? NO . ENDOCRINOLOGY: ARE YOU DIABETIC? NO . OTHER: DO YOU NEED ANY PRESCRIPTIONS? YES, VICODIN . IF YES, PLEASE LIST: ____ . ANY NEW PROBLEMS WITH YOUR MEDICATIONS? NO . WHEN DID YOU LAST EAT? ____ . WHEN DID YOU LAST DRINK? ____ . WHAT DID YOU LAST DRINK? ____ . NAME OF PERSON DRIVING YOU HOME? ____ . DO YOU HAVE ANY OTHER QUESTIONS OR CONCERNS NO . VITAL SIGNS WT 204.8 LBS, HT 67 IN, BMI 32.07 INDEX, BP 175/93 MM HG, HR 100 /MIN, RR 18 /MIN, TEMP 97.6 F, OXYGEN SAT % 96%, SAFE IN ENV? (Y/N) Y, NA INITIALS AW 0913, REVIEWED BY: VANESA. EXAMINATION GENERAL EXAMINATION: GENERALAWAKE,ALERT ,PLEAASANT . PSYCHAFFECT NORMAL . LUNGS:LUNG GIANG ARE CLEAR TO AUSCULTATION BILATERALLY. GOOD MOVEMENT OF AIR . HEART:S1, S2 IN A REGULAR RATE AND RHYTHM. NO SIGNIFICANT MURMURS, RUBS OR GALLOPS NOTED . LUMBAR:PALPATION:POSITIVE FOR PAIN OVER L/S SPINE. POSITIVE FOR PAIN OVER L/S PARASPINALS. , TRIGGER POINT-BILAT THORACIC AND LUMBAR PARASPINAL TENDER OVER LEFT SIJ. CERVICAL:NEGATIVE FOR PAIN WITH PALPATION OF CERVICAL SPINE. NEGATIVE FOR PAIN WITH PALPATION OF CERVICAL PARASPINALS. NEGATIVE FOR PAIN WITH PALPATION OF TRAPEZIUS BILAT. DIAGNOSTIC TESTS REVIEWEDMRI L/S SPINE-12/23/2018 . ASSESSMENTS MYALGIA, OTHER SITE - M79.18 (PRIMARY) CHRONIC PRESCRIPTION OPIATE USE - Z79.891 TREATMENT MYALGIA, OTHER SITE REFILL NORCO TABLET, 5-325 MG, 1 TABLET NEEDED, ORALLY, Q8H PRN MDD3 #40 TAB SHOULD LAST 30 DAYS, 30 DAYS, 40, REFILLS 0 NOTES: TPI BILAT LOW BACK, ISTOP REGISTRY REVIEWED AND DEMONSTRATES COMPLLIANCE. (REF # ) BRINGS IN MEDICATIONS WHICH IS APPROPRIATE FOR WHAT WAS DISPENSED. RECENT URINE TOXICOLOGY REVIEWED. NO UNAUTHORIZED MEDICATIONS. NO ILLICIT SUBSTANCES AND PRESCRIBED MEDICATIONS WERE PRESENT. , RISKS OF NARCOTIC/OPIOD MEDICATIONS INCLUDES BUT IS NOT LIMITED TO RISK OF DEPENDANCE/DEVELOPMENT OF ADDICTION, MOOD DISTURBANCE AND DEPRESSION, OSTEOPOROSIS, HORMONAL AND LABIDAL CHANGES, RESPIRATORY DEPRESSION AND . PATIENT IS ADVISED NOT TO DRIVE OR DRINK ALCOHOL WHILE ON THESE MEDICATIONS. OTHERS NOTES: TRIGGER POINT INJECTIONS MATERIAL WAS PUBLISHED TO [employer]. PROCEDURE CODES FA211 ESTABILISHED PATIENT [facility] FACILITY CHARGE DISPOSITION & COMMUNICATION FOLLOW UP POST (REASON: TPI BILAT LOW BACK) ELECTRONICALLY SIGNED BY NANCY MUNIZ ON 05/28/2019 AT 04:13 PM EDT DISCLAIMER : THIS IS A VISIT SUMMARY EXTRACTED FROM THE [email or web address] CHART. IT IS NOT A COPY OF THE [email or web address] PROGRESS NOTE. JAVIER
== END ==
LOC: M PAIN 09:15
PROVIDERS: ATTEND Nurse Practitioner Family
DX: M79.18 Myalgia, other site (principal); I10 Essential (primary) hypertension; E78.5 Hyperlipidemia, unspecified; Z79.891 Long term (current) use of opiate analgesic; Z79.899 Other long term (current) drug therapy; Z88.5 Allergy status to narcotic agent; Z91.013 Allergy to seafood; Z87.891 Personal history of nicotine dependence

== ENCOUNTER → 2019-06-07 | Outpatient (REF) | payer BC ==
[2019-06-07 11:33] LABS: BASO # 0.1 10^3/uL (0.0-0.2); BASO % 0.6 % (0.0-1.0); EOS # 0.2 10^3/uL (0.0-0.5); EOS % 2.4 % (0.0-3.0); HEMATOCRIT 42.6 % (36.0-47.0); HEMOGLOBIN 14.6 g/dl (12.0-15.5); LYMPH # 1.8 10^3/uL (1.5-5.0); LYMPH % 21.4 % (24.0-44.0); MEAN CORPUSCULAR HEMOGLOBIN 32.4 pg (27.0-33.0); MEAN CORPUSCULAR HGB CONC 34.3 g/dl (32.0-36.5); MEAN CORPUSCULAR VOLUME 94.7 fl (80.0-96.0); MONO # 0.6 10^3/uL (0.0-0.8); MONO % 7.2 % (0.0-5.0); NEUTROPHILS # 5.9 10^3/uL (1.5-8.5); NEUTROPHILS % 68.3 % (36.0-66.0); PLATELET COUNT, AUTOMATED 306 10^3/uL (150-450); WHITE BLOOD COUNT 8.6 10^3/uL (4.0-10.0)
[2019-06-07 11:46] LABS: ALBUMIN 3.5 GM/DL (3.2-5.2); ALT/SGPT 29 U/L (12-78); BILIRUBIN,TOTAL 0.9 MG/DL (0.2-1.0); BLOOD UREA NITROGEN 20 MG/DL (7-18); CARBON DIOXIDE LEVEL 29 MEQ/L (21-32); CHLORIDE LEVEL 107 MEQ/L (98-107); CREATININE FOR GFR 0.72 MG/DL (0.55-1.30); FREE T4 0.91 NG/DL (0.76-1.46); GLOMERULAR FILTRATION RATE > 60.0 (>51); GLUCOSE, FASTING 87 MG/DL (70-100); MAGNESIUM LEVEL 2.2 MG/DL (1.8-2.4); POTASSIUM SERUM 4.7 MEQ/L (3.5-5.1); SODIUM LEVEL 140 MEQ/L (136-145); TOTAL PROTEIN 6.8 GM/DL (6.4-8.2)
== END ==
LOC: M SFHCCLAY 07:48
PROVIDERS: ATTEND Physician Assistant
DX: R00.2 Palpitations (principal)

== ENCOUNTER → 2019-06-28 | Outpatient (CLI) | payer BC | LOC: M LABSMTC 10:07 | PROVIDERS: ATTEND Family Medicine | DX: Z11.59 Encounter for screening for other viral diseases (principal); Z01.818 Encounter for other preprocedural examination ==

== ENCOUNTER → 2019-06-30 | Outpatient (CLI) | payer BC ==
[~2019-06-30] MED LIST changes: +BUPIVACAINE HCL 0.25% 10ML VIAL As Ordered ONE; +BUPIVACAINE HCL 0.25% 30ML VIAL As Ordered ONE; +NORCO, ANEXSIA 5/325MG TABLET (HYDROcodone/ACETAMINOPHEN) As Ordered ONE; +dexameTHASONE 10MG/1ML VIAL PRES.FREE (J1100 PER 1MG) As Ordered ONE; +diazePAM 5 MG TAB As Ordered ONE
--- NOTE | 2019-07-01 01:46 | ECWPNPC ---
PATIENT NAME: RODNEY GOODWIN : 1960 GENDER: FEMALE VISIT DATE: 06/30/2019 DISCHARGE DATE: 06/30/19 1410 VISIT LOCKED DATE TIME: PHYSICIAN: JANE EASON MD RESOURCE: JANE EASON MD REASON FOR APPOINTMENT 1. TPI BILAT LOW BACK PAT DONE HISTORY OF PRESENT ILLNESS HISTORY OF PRESENT ILLNESS: PAIN THE PATIENT DESCRIBES THE PAIN... FALL RISK SCREENING: SCREENING :NO FALLS REPORTED IN THE LAST YEAR CURRENT MEDICATIONS TAKING TAMOXIFEN CITRATE 10 MG TABLET 1 TABLET ORALLY DAILY, NOTES: 5/5 5AM TAKING LISINOPRIL 40 40 MG TABLET 1 TAB ORAL ONCE DAILY, NOTES: 55 5AM TAKING MOBIC 15 MG TABLET 1 TABLET ORALLY ONCE A DAY, NOTES: 55 5AM TAKING NORCO 5-325 MG TABLET 1 TABLET NEEDED ORALLY Q8H PRN MDD3 #40 TAB SHOULD LAST 30 DAYS, NOTES: 06/27 2PM TAKING AMLODIPINE BESYLATE 10 MG TABLET 1 TABLET ORALLY ONCE A DAY, NOTES: 06/28 5AM TAKING LIPITOR 40 MG TABLET 1 TABLET ORALLY ONCE A DAY, NOTES: 06/28 5AM TAKING VENTOLIN HFA 108 (90 BASE) MCG/ACT AEROSOL SOLUTION 2 PUFFS INHALATION 4 TIMES A DAY NEEDED, NOTES: 3 DAYS AGO TAKING SYMBICORT 80-4.5 MCG/ACT AEROSOL 2 PUFFS INHALATION TWICE A DAY, NOTES: 06/27 7PM TAKING GABAPENTIN 100 MG CAPSULE 1 CAPSULE ORALLY ONCE A DAY, NOTES: 06/27 2PM TAKING LASIX 20 MG TABLET 1 TABLET ORALLY ONCE A DAY, NOTES: ON HOLD FOR PROCEDURE NOT-TAKING AMLODIPINE BESYLATE 10 MG TABLET 1 TABLET ORALLY ONCE A DAY MEDICATION LIST REVIEWED AND RECONCILED WITH THE PATIENT PAST MEDICAL HISTORY HYPERTENSION ASTHMA HYPERLIPIDEMIA TENOSYNOVITIS PERIMENOPAUSE H/O HSV STRESS TEST DONE BY DR RODRIGUES IN 2016 NORMAL BREAST CA BASAL CELL CARCINOMA 2014 CHRONIC LOW BACK PAIN SPINAL STENOSIS ALLERGIES SHRIMP: HIVES, RASH - ALLERGY ACETAMINOPHEN-CODEINE #3: CHEST PAINS - ALLERGY SURGICAL HISTORY HYSTERECTOMY 1994 CHOLECYSTECTOMY 2009 LASIK 1999 HEART CATHETERIZATION 07/2009 BASAL CELL CA, LOWER L NOSTRIL (EXCISED) FOLLOWED BY DR RICKS IN [place] 10/2013 COLONOSCOPY 2014, 201105/15/2011 RIGHT KNEE ARTHOSCOPY 08/2015 LUMPECTOMY-LEFT BREAST 2019 RIGHT KNEE TOTAL REPLACEMENT 12/2018 FAMILY HISTORY FATHER: 83 YRS, AMI, STROKE, DIAGNOSED WITH HYPERTENSION, UNSPECIFIED HEART DISEASE, UNSPECIFIED CEREBRAL ARTERY OCCLUSION WITH CEREBRAL INFARCTION MOTHER: ALIVE 83 YRS, HTN, HIGH CHOLESTEROL, STROKE, PLAVIX, DEPRESSION, HYPERTENSION SIBLINGS: ALIVE 60,59,57 YRS, SISTERS-ALL HTN SON(S): ALIVE 36 YRS, HTN PATERNAL GRAND FATHER: HYPERTENSION PATERNAL GRAND MOTHER: HYPERTENSION 3 SISTER(S) - HEALTHY. 1 SON(S) - HEALTHY. DENIES BREAST, COLON OR OVARIAN CANCER HISTORY. SOCIAL HISTORY GENERAL: TOBACCO USE ARE YOU A:FORMER SMOKER HOW LONG HAS IT BEEN SINCE YOU LAST SMOKED?6-12 MONTHS VAPORNO E-CIGARETTENO SMOKING CESSATION INFORMATION GIVEN01/11/2019 LATEX QUESTIONNAIRE LATEX ALLERGY : HAVE YOU EVER DEVELOPED ANY TYPE OF REACTION AFTER HANDLING LATEX PRODUCTS SUCH RUBBER GLOVES, CONDOMS, DIAPHRAGMS, BALLOONS, SOCKS, OR UNDERWEAR?NO LATEX ALLERGY : HAVE YOU EVER DEVELOPED ANY TYPE OF REACTION DURING OR AFTER DENTAL APPOINTMENT, VAGINAL/RECTAL EXAMINATION, SURGICAL PROCEDURE, OR ANY OTHER EXPOSURE?NO LATEX RISK : HAVE YOU EVER HAD ANY DIFFICULTY BREATHING OR HIVES AFTER EATING OR HANDLING ANY FRUITS, OR VEGETABLES; SUCH KIWI, BANANAS, STONE FRUITS, OR CHESTNUTSNO LATEX RISK : DO YOU HAVE A PREVIOUS PERSONAL HISTORY OF MORE THAN NINE SURGERIES, SPINA BIFIDA, OR REPEATED CATHERIZATIONS? NO LATEX RISK : ARE YOU FREQUENTLY EXPOSED TO LATEX PRODUCTS IN YOUR OCCUPATION?YES PT STATES SHE USES LATEX PRODUCTS AT WORK DATE ASKED : 06/29/2019 LUNG CANCER SCREENING SMOKING STATUS:FORMER SMOKER IS THE PATIENT BETWEEN THE AGE OF 54 AND 76?YES HAVE YOU QUIT SMOKING WITHIN THE PAST 15 YEARS?YES BMI CARE GOAL FOLLOW-UP ABOVE NORMAL BMI FOLLOW-UPDIETARY NEEDS EDUCATION ALCOHOL SCREENING DID YOU HAVE A DRINK CONTAINING ALCOHOL IN THE PAST YEAR?YES HOW OFTEN DID YOU HAVE SIX OR MORE DRINKS ON ONE OCCASION IN THE PAST YEAR?NEVER (0 POINTS) HOW MANY DRINKS DID YOU HAVE ON A TYPICAL DAY WHEN YOU WERE DRINKING IN THE PAST YEAR?1 OR 2 (0 POINTS) HOW OFTEN DID YOU HAVE A DRINK CONTAINING ALCOHOL IN THE PAST YEAR?MONTHLY OR LESS (1 POINT) POINTS1 INTERPRETATIONNEGATIVE RECREATIONAL DRUG USE DRUG USE?NO CAFFEINE 2/DAY. HIV / HEP-C SCREENING HIV TEST OFFERED TO PATIENT:YES DATE OFFERED:01/11/2019 CONSENT SIGNED TEST ACCEPTED:NO HEP-C TEST OFFERED TO PATIENT:YES DATE OFFERED:01/11/2019 REASON:PATIENT DECLINED TEST ACCEPTED:NO CONSENT SIGNED REASON:PATIENT DECLINED BROCHURE PROVIDED TO PATIENTNO -DECLINED JEHOVAH'S WITNESS NO DRUZE BELIEFS THAT WOULD IMPACT HEALTH CARE. LANGUAGE SALVADOREAN. 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 DIET: NO HX EATING DISORDERS. EXERCISE: WALKING AND VERY ACTIVE THROUGH WORK AT [employer]. MARITAL STATUS: . OTHERS AT HOME: LIVES WITH HER 1 CAT, 2 DOGS; BOYFRIEND. NEW PATIENT PAIN DIARY TODAY'S VISIT 06/30/19 PATIENT DESCRIBES PAIN :ACHING, HAVE IT ALL THE TIME, SHOOTING FROM 0-10, WHAT LEVEL IS YOUR PAIN TODAY?8 PRECIPITATING FACTORS ACTIVITY ALLEVIATING FACTORS LAY DOWN WITH LEGS ELEVATED IMPACT ON FUNCTION YES PAIN CLINIC PFS, CLERGY, PUBLIC HEALTH REFERRALS HAS THE PATIENT BEEN EDUCATED REGARDING HIS/HER PLAN OF CARE?YES HAS THE PATIENT BEEN EDUCATED REGARDING PAIN, THE RISK FOR PAIN, THE IMPORTANCE OF EFFECTIVE PAIN MANAGEMENT, AND THE PAIN ASSESSMENT PROCESS?YES ADVANCE DIRECTIVE ADVANCE DIRECTIVE DISCUSSED WITH PATIENT:YES PT DOES NOT HAVE HCP AND DECLINES INFORMATION OR ASSISTANCE WITH FORM TODAY. PAT DONE 06/29/19. HOSPITALIZATION/MAJOR DIAGNOSTIC PROCEDURE SURGERY REVIEW OF SYSTEMS REVIEWED BY: PROVIDER: JANE EASON MD . CONSTITUTIONAL: ANY CHANGE IN YOUR MEDICAL CONDITION? NO . CHILLS NO . FEVER NO . INFECTION: DO YOU HAVE NEW INFECTIONS? NO . DO YOU HAVE HISTORY OF MRSA? NO . MUSCULOSKELETAL: ANY NEW PATTERNS OF PAIN OR NUMBNESS? NO . GASTROENTEROLOGY: ANY NEW CHANGE IN BOWEL CONTROL? NO . GENITOURINARY: ANY NEW CHANGE IN BLADDER CONTROL? NO . IS THERE A CHANCE YOU COULD BE ? NO . HEMATOLOGY/LYMPH: DO YOU TAKE ANY BLOOD THINNERS? (FOR EXAMPLE- COUMADIN, PLAVIX, AGGRENOX, PLATEL, PRADAXA, OR XARELTO) NO . WHEN WAS YOUR LAST DOSE? DATE: TIME: . NEUROLOGY: HAVE YOU FALLEN IN THE PAST 12 MONTHS? NO . ANY NEW EXTREMITY NUMBNESS OR WEAKNESS? NO . CARDIOLOGY: DO YOU HAVE A PACEMAKER OR DEFIBRILLATOR? NO . RESPIRATORY: HAVE YOU BEEN SICK IN THE PAST WEEK? NO . FEVER NO . FLU LIKE SYMPTOMS? NO . COUGH NO . INTEGUMENTARY: DO YOU HAVE ANY RASHES OR OPEN SORES? NO . ALLERGIC/IMMUNO: ARE YOU ALLERGIC TO IV DYE? NO . ANY NEW ALLERGIES? SHRIMP . PSYCHIATRIC: DO YOU HAVE THOUGHTS OF HURTING YOURSELF OR SOMEONE ELSE? NO . ARE YOU ABUSED, NEGLECTED, OR IN AN UNSAFE ENVIRONMENT? NO . ENDOCRINOLOGY: ARE YOU DIABETIC? NO . OTHER: DO YOU NEED ANY PRESCRIPTIONS? NO . IF YES, PLEASE LIST: ____ . ANY NEW PROBLEMS WITH YOUR MEDICATIONS? NO . WHEN DID YOU LAST EAT? 06/27 5PM . WHEN DID YOU LAST DRINK? 06/29 5AM . WHAT DID YOU LAST DRINK? WATER . NAME OF PERSON DRIVING YOU HOME? THU . DO YOU HAVE ANY OTHER QUESTIONS OR CONCERNS NO . VITAL SIGNS WT 203.2 LBS, HT 67 IN, BMI 31.82 INDEX, BP 138/87 MM HG, HR 87 /MIN, RR 18 /MIN, TEMP 96.6 F, OXYGEN SAT % 99%, NA INITIALS SC 12:41. ASSESSMENTS MYALGIA, OTHER SITE - M79.18 (PRIMARY) PROCEDURES PN TRIGGER POINT INJECTION WITH STEROIDS PRE PROCEDURE DIAGNOSIS 1. MYALGIA 2. PAIN AT BILATERAL LOWER BACK AREA POST PROCEDURE DIAGNOSIS 1. MYALGIA 2. PAIN AT BILATERAL LOWER BACK AREA PROCEDURE TRIGGER POINT INJECTION AT BILATERAL LOWER BACK AREA SURGEON DR. JANE EASON METEOROLOGIST LIAISON NONE ANESTHESIA LOCAL PRE PROCEDURE NOTE THE PATIENT HAS A HISTORY OF CHRONIC PAIN AT THE BILATERAL LOWER BACK AREA. I EVALUATED THE PATIENT AND REVIEWED THE CHART. THERE IS EVIDENCE OF BANDS OF TISSUE WITH RESTRICTION OF MOVEMENT AND PRESENCE OF TRIGGER POINT AT THE BILATERAL LOWER BACK AREA. I WENT OVER THE RISKS, ALTERNATIVES, AND BENEFITS ASSOCIATED WITH THIS PROCEDURE. I DISCUSSED WITH THE PATIENT THAT THE USE OF STEROIDS MAY CONTRIBUTE TO IMMUNOSUPPRESSION OF HER BODY AGAINST INFECTIONS SUCH THE DIA VIRUS, COVID-19. SHE IS AWARE OF THE POTENTIAL COMPLICATIONS ASSOCIATED WITH AN INFECTION OF THIS VIRUS INCLUDING . THE PATIENT WOULD LIKE TO PROCEED AND GIVE CONSENT TO PERFORMED THE PROCEDURE. THE PATIENT DENIES UNEXPLAINABLE WEIGHT LOSS, FEVER, CHILLS, OR NEW CHANGES IN URINARY OR BOWEL CONTROL. THE PATIENT IS COVID-19 NEGATIVE DESCRIPTION OF PROCEDURE THE PATIENT WAS BROUGHT TO THE PROCEDURE ROOM AND PLACED IN THE SITTING POSITION. THE AREA WAS CLEANED WITH ALCOHOL. THE PROCEDURE WAS DONE USING ASEPTIC STERILE TECHNIQUE. I CHECKED LATERALITY AND THE LEVEL WHERE THE PROCEDURE WAS GOING TO BE PERFORMED WITH THE PATIENT AND THE SUPPORTING STAFF AT THE MOMENT OF THE TIME OUT IN THE PROCEDURE ROOM. USING A 25-GAUGE NEEDLE, TRIGGER POINTS WERE INJECTED AT THE BILATERAL LOWER BACK AREA WITH A TOTAL OF 40 ML OF BUPIVACAINE 0.25% AND DEXAMETHASONE 10 MG. THERE WAS NO EVIDENCE OF BLOOD, PARESTHESIA OR CEREBROSPINAL FLUID DURING THE PROCEDURE. THE PATIENT WAS SENT TO THE RECOVERY ROOM. THE PATIENT WAS MOVING THE EXTREMITIES AND DOING WELL. THERE WAS NO COMPLICATION DURING THE PROCEDURE POST PROCEDURE NOTE THE PATIENT WILL BE SEEN IN A FOLLOW UP IN THE NEXT FEW WEEKS. I AM LOOKING FOR LONG LASTING PAIN RELIEF FOR THE PATIENT WITH THIS INJECTION. INSTRUCTIONS WERE GIVEN, QUESTIONS WERE ANSWERED, AND THE PATIENT EXPRESSED UNDERSTANDING AND AGREES WITH THE PLAN. I INSTRUCTED THE PATIENT TO STAY HOME, IF POSSIBLE, FOR A WEEK DUE TO COVID-19. I, MILTON CHAMPION, DOCUMENTED THE ABOVE INFORMATION ACTING A SCRIBE FOR DR. EASON. I HAVE REVIEWED THE ABOVE DOCUMENT, WRITTEN BY TONYA VERAS, AND I VERIFY THAT IT IS ACCURATE PROCEDURE CODES 71160 INJ TRIGGER POINT /2 MUSCL DISPOSITION & COMMUNICATION FOLLOW UP F/UP WITH SENIOR MEDIA PLANNER (REASON: POST-PROCEDURE F/UP-LOW BACK PAIN) ELECTRONICALLY SIGNED BY JANE EASON MD, MD ON 06/30/2019 AT 04:38 PM EDT DISCLAIMER : THIS IS A VISIT SUMMARY EXTRACTED FROM THE [employer] CHART. IT IS NOT A COPY OF THE [employer] PROGRESS NOTE. MTDD
== END ==
LOC: M PAIN 12:15
PROVIDERS: ATTEND Anesthesiology
DX: M79.18 Myalgia, other site (principal); I10 Essential (primary) hypertension; Z79.899 Other long term (current) drug therapy; Z87.891 Personal history of nicotine dependence; Z88.8 Allergy status to other drugs, medicaments and biological substances; Z91.013 Allergy to seafood
CPT/HCPCS: 20552; J1100

== ENCOUNTER → 2019-07-20 | Outpatient (CLI) | payer BC ==
[~2019-07-20] MED LIST changes: -BUPIVACAINE HCL 0.25% 10ML VIAL As Ordered ONE; -BUPIVACAINE HCL 0.25% 30ML VIAL As Ordered ONE; -NORCO, ANEXSIA 5/325MG TABLET (HYDROcodone/ACETAMINOPHEN) As Ordered ONE; -dexameTHASONE 10MG/1ML VIAL PRES.FREE (J1100 PER 1MG) As Ordered ONE; -diazePAM 5 MG TAB As Ordered ONE
--- NOTE | 2019-07-22 02:56 | ECWPNPC ---
PATIENT NAME: RODNEY GOODWIN : 1960 GENDER: FEMALE VISIT DATE: 07/20/2019 DISCHARGE DATE: 07/20/19 1131 VISIT LOCKED DATE TIME: PHYSICIAN: NAYELI BAJWA RESOURCE: NAYELI BAJWA REASON FOR APPOINTMENT 1. POST [id number] PAT DONE HISTORY OF PRESENT ILLNESS HISTORY OF PRESENT ILLNESS: PATIENT IS AGREEABLE TO TELEPHONE VISIT TODAY. HAS BEEN HAVING SIGNIFICANT INCREASE IN LOW BACK PAIN. IS FOLLOWING WITH ORTHOPEDIC SURGEON. THEY PLAN ON DOING SURGERY IN THE FALL. FINDS MEDICATION SOMEWHAT HELPFUL AT REDUCING PAIN AND KEEPING HER FUNCTIONAL. CURRENTLY USING HYDROCODONE AND GABAPENTIN. HAD TRIGGER POINT INJECTIONS BILATERAL LOW BACK WITHOUT IMPROVEMENT. CONTINUES TO WORK COMMUNICATION SPEC. PAIN THE PATIENT DESCRIBES THE PAINAFTER THE PROCEDURE PRE-PROCEDURE PAIN 9/10, POST PROCEDURE PAIN-9/10 SEVERITY - PAIN SCORE OF9/10 LOCATIONSLOWER BACK QUALITYACHING RADIATES DOWN FRONT LEFT LEG DURATIONCONTINUOUS, ALL DAY PAIN IS INCREASED BY:ACTIVITIES, PROLONGED STANDING PAIN IS DECREASED BY:USE OF PAIN MEDICATIONS FALL RISK SCREENING: SCREENING :NO FALLS REPORTED IN THE LAST YEAR CURRENT MEDICATIONS TAKING TAMOXIFEN CITRATE 10 MG TABLET 1 TABLET ORALLY DAILY, NOTES: 5/5 5AM TAKING LISINOPRIL 40 40 MG TABLET 1 TAB ORAL ONCE DAILY, NOTES: 5/5 5AM TAKING MOBIC 15 MG TABLET 1 TABLET ORALLY ONCE A DAY, NOTES: 5/5 5AM TAKING AMLODIPINE BESYLATE 10 MG TABLET 1 TABLET ORALLY ONCE A DAY, NOTES: 5/5 5AM TAKING LIPITOR 40 MG TABLET 1 TABLET ORALLY ONCE A DAY, NOTES: 5/5 5AM TAKING VENTOLIN HFA 108 (90 BASE) MCG/ACT AEROSOL SOLUTION 2 PUFFS INHALATION 4 TIMES A DAY NEEDED, NOTES: 3 DAYS AGO TAKING SYMBICORT 80-4.5 MCG/ACT AEROSOL 2 PUFFS INHALATION TWICE A DAY, NOTES: 5/ 7PM TAKING GABAPENTIN 100 MG CAPSULE 1 CAPSULE ORALLY ONCE A DAY, NOTES: 5/4 2PM TAKING LASIX 20 MG TABLET 1 TABLET ORALLY ONCE A DAY, NOTES: ON HOLD FOR PROCEDURE TAKING NORCO 5-325 MG TABLET 1 TABLET NEEDED ORALLY Q8H PRN MDD3 #40 TAB SHOULD LAST 30 DAYS, NOTES: 5/4 2PM NOT-TAKING AMLODIPINE BESYLATE 10 MG TABLET 1 TABLET ORALLY ONCE A DAY MEDICATION LIST REVIEWED AND RECONCILED WITH THE PATIENT PAST MEDICAL HISTORY HYPERTENSION ASTHMA HYPERLIPIDEMIA TENOSYNOVITIS PERIMENOPAUSE H/O HSV STRESS TEST DONE BY DR RODRIGUES IN 2015 NORMAL BREAST CA BASAL CELL CARCINOMA 2014 CHRONIC LOW BACK PAIN SPINAL STENOSIS ALLERGIES SHRIMP: HIVES, RASH - ALLERGY ACETAMINOPHEN-CODEINE #3: CHEST PAINS - ALLERGY SURGICAL HISTORY HYSTERECTOMY 1994 CHOLECYSTECTOMY 2009 LASIK 1999 HEART CATHETERIZATION 07/2009 BASAL CELL CA, LOWER L NOSTRIL (EXCISED) FOLLOWED BY DR RICKS IN [place] 10/2013 COLONOSCOPY 2014, 201105/15/2011 RIGHT KNEE ARTHOSCOPY 08/2015 LUMPECTOMY-LEFT BREAST 2018 RIGHT KNEE TOTAL REPLACEMENT 12/2018 FAMILY HISTORY FATHER: 83 YRS, AMI, STROKE, DIAGNOSED WITH HYPERTENSION, UNSPECIFIED HEART DISEASE, UNSPECIFIED CEREBRAL ARTERY OCCLUSION WITH CEREBRAL INFARCTION MOTHER: ALIVE 83 YRS, HTN, HIGH CHOLESTEROL, STROKE, PLAVIX, DEPRESSION, HYPERTENSION SIBLINGS: ALIVE 60,59,57 YRS, SISTERS-ALL HTN SON(S): ALIVE 36 YRS, HTN PATERNAL GRAND FATHER: HYPERTENSION PATERNAL GRAND MOTHER: HYPERTENSION 3 SISTER(S) - HEALTHY. 1 SON(S) - HEALTHY. DENIES BREAST, COLON OR OVARIAN CANCER HISTORY. SOCIAL HISTORY GENERAL: TOBACCO USE ARE YOU A:FORMER SMOKER HOW LONG HAS IT BEEN SINCE YOU LAST SMOKED?6-12 MONTHS VAPORNO E-CIGARETTENO SMOKING CESSATION INFORMATION GIVEN01/11/2019 LATEX QUESTIONNAIRE LATEX ALLERGY : HAVE YOU EVER DEVELOPED ANY TYPE OF REACTION AFTER HANDLING LATEX PRODUCTS SUCH RUBBER GLOVES, CONDOMS, DIAPHRAGMS, BALLOONS, SOCKS, OR UNDERWEAR?NO LATEX ALLERGY : HAVE YOU EVER DEVELOPED ANY TYPE OF REACTION DURING OR AFTER DENTAL APPOINTMENT, VAGINAL/RECTAL EXAMINATION, SURGICAL PROCEDURE, OR ANY OTHER EXPOSURE?NO DATE ASKED : 06/29/2019 LATEX RISK : HAVE YOU EVER HAD ANY DIFFICULTY BREATHING OR HIVES AFTER EATING OR HANDLING ANY FRUITS, OR VEGETABLES; SUCH KIWI, BANANAS, STONE FRUITS, OR CHESTNUTSNO LATEX RISK : DO YOU HAVE A PREVIOUS PERSONAL HISTORY OF MORE THAN NINE SURGERIES, SPINA BIFIDA, OR REPEATED CATHERIZATIONS? NO LATEX RISK : ARE YOU FREQUENTLY EXPOSED TO LATEX PRODUCTS IN YOUR OCCUPATION?YES PT STATES SHE USES LATEX PRODUCTS AT WORK LUNG CANCER SCREENING SMOKING STATUS:FORMER SMOKER IS THE PATIENT BETWEEN THE AGE OF 54 AND 76?YES HAVE YOU QUIT SMOKING WITHIN THE PAST 15 YEARS?YES BMI CARE GOAL FOLLOW-UP ABOVE NORMAL BMI FOLLOW-UPDIETARY NEEDS EDUCATION ALCOHOL SCREENING DID YOU HAVE A DRINK CONTAINING ALCOHOL IN THE PAST YEAR?YES HOW OFTEN DID YOU HAVE SIX OR MORE DRINKS ON ONE OCCASION IN THE PAST YEAR?NEVER (0 POINTS) HOW MANY DRINKS DID YOU HAVE ON A TYPICAL DAY WHEN YOU WERE DRINKING IN THE PAST YEAR?1 OR 2 (0 POINTS) HOW OFTEN DID YOU HAVE A DRINK CONTAINING ALCOHOL IN THE PAST YEAR?MONTHLY OR LESS (1 POINT) POINTS1 INTERPRETATIONNEGATIVE RECREATIONAL DRUG USE DRUG USE?NO CAFFEINE 2/DAY. HIV / HEP-C SCREENING HIV TEST OFFERED TO PATIENT:YES DATE OFFERED:01/11/2019 CONSENT SIGNED TEST ACCEPTED:NO HEP-C TEST OFFERED TO PATIENT:YES DATE OFFERED:01/11/2019 REASON:PATIENT DECLINED TEST ACCEPTED:NO CONSENT SIGNED REASON:PATIENT DECLINED BROCHURE PROVIDED TO PATIENTNO -DECLINED YAZIDISM NO TAOIST BELIEFS THAT WOULD IMPACT HEALTH CARE. LANGUAGE CZECH. 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 DIET: NO HX EATING DISORDERS. EXERCISE: WALKING AND VERY ACTIVE THROUGH WORK AT [employer]. MARITAL STATUS: . OTHERS AT HOME: LIVES WITH HER 1 CAT, 2 DOGS; BOYFRIEND. NEW PATIENT PAIN DIARY TODAY'S VISIT 06/30/19 PATIENT DESCRIBES PAIN :ACHING, HAVE IT ALL THE TIME, SHOOTING FROM 0-10, WHAT LEVEL IS YOUR PAIN TODAY?8 PRECIPITATING FACTORS ACTIVITY ALLEVIATING FACTORS LAY DOWN WITH LEGS ELEVATED IMPACT ON FUNCTION YES PAIN CLINIC PFS, CLERGY, PUBLIC HEALTH REFERRALS HAS THE PATIENT BEEN EDUCATED REGARDING HIS/HER PLAN OF CARE?YES HAS THE PATIENT BEEN EDUCATED REGARDING PAIN, THE RISK FOR PAIN, THE IMPORTANCE OF EFFECTIVE PAIN MANAGEMENT, AND THE PAIN ASSESSMENT PROCESS?YES ADVANCE DIRECTIVE ADVANCE DIRECTIVE DISCUSSED WITH PATIENT:YES PT DOES NOT HAVE HCP AND DECLINES INFORMATION OR ASSISTANCE WITH FORM TODAY. PAT DONE 06/29/19. HOSPITALIZATION/MAJOR DIAGNOSTIC PROCEDURE SURGERY REVIEW OF SYSTEMS REVIEWED BY: PROVIDER: NAYELI CRUZ . CONSTITUTIONAL: ANY CHANGE IN YOUR MEDICAL CONDITION? NO . CHILLS NO . FEVER NO . INFECTION: DO YOU HAVE NEW INFECTIONS? NO . DO YOU HAVE HISTORY OF MRSA? NO . MUSCULOSKELETAL: ANY NEW PATTERNS OF PAIN OR NUMBNESS? NO . GASTROENTEROLOGY: ANY NEW CHANGE IN BOWEL CONTROL? NO . GENITOURINARY: ANY NEW CHANGE IN BLADDER CONTROL? NO . IS THERE A CHANCE YOU COULD BE ? NO . HEMATOLOGY/LYMPH: DO YOU TAKE ANY BLOOD THINNERS? (FOR EXAMPLE- COUMADIN, PLAVIX, AGGRENOX, PLATEL, PRADAXA, OR XARELTO) NO . WHEN WAS YOUR LAST DOSE? DATE: TIME: . NEUROLOGY: HAVE YOU FALLEN IN THE PAST 12 MONTHS? NO . ANY NEW EXTREMITY NUMBNESS OR WEAKNESS? NO . CARDIOLOGY: DO YOU HAVE A PACEMAKER OR DEFIBRILLATOR? NO . RESPIRATORY: HAVE YOU BEEN SICK IN THE PAST WEEK? NO . FEVER NO . FLU LIKE SYMPTOMS? NO . COUGH NO . INTEGUMENTARY: DO YOU HAVE ANY RASHES OR OPEN SORES? NO . ALLERGIC/IMMUNO: ARE YOU ALLERGIC TO IV DYE? NO . ANY NEW ALLERGIES? NO . PSYCHIATRIC: DO YOU HAVE THOUGHTS OF HURTING YOURSELF OR SOMEONE ELSE? NO . ARE YOU ABUSED, NEGLECTED, OR IN AN UNSAFE ENVIRONMENT? NO . ENDOCRINOLOGY: ARE YOU DIABETIC? NO . OTHER: DO YOU NEED ANY PRESCRIPTIONS? YES, REFILL [id number] . IF YES, PLEASE LIST: ____ . ANY NEW PROBLEMS WITH YOUR MEDICATIONS? NO . WHEN DID YOU LAST EAT? ____ . WHEN DID YOU LAST DRINK? ____ . WHAT DID YOU LAST DRINK? ____ . NAME OF PERSON DRIVING YOU HOME? ____ . DO YOU HAVE ANY OTHER QUESTIONS OR CONCERNS NO . ASSESSMENTS MYALGIA, OTHER SITE - M79.18 (PRIMARY) CHRONIC PRESCRIPTION OPIATE USE - Z79.891 TREATMENT MYALGIA, OTHER SITE CONTINUE MOBIC TABLET, 15 MG, 1 TABLET, ORALLY, ONCE A DAY, NOTES: 5/5 5AM CONTINUE GABAPENTIN CAPSULE, 100 MG, 1 CAPSULE, ORALLY, ONCE A DAY, NOTES: 5/4 2PM REFILL NORCO TABLET, 5-325 MG, 1 TABLET NEEDED, ORALLY, Q8H PRN MDD3 #40 TAB SHOULD LAST 30 DAYS, 30 DAYS, 40, REFILLS 0, NOTES: 5/4 2PM NOTES: ISTOP REGISTRY REVIEWED AND DEMONSTRATES COMPLLIANCE. RECENT URINE TOXICOLOGY REVIEWED. NO UNAUTHORIZED MEDICATIONS. NO ILLICIT SUBSTANCES AND PRESCRIBED MEDICATIONS WERE PRESENT. PATIENT WILL BE MEDICINE MANAGEMENT UNTIL SHE IS ABLE TO SEE SURGEON IN THE FALL. CONTINUE CURRENT CHRONIC PAIN MEDICATIONS. FOLLOW-UP AT PAIN CLINIC IN 3 MONTHS. URINE TOXICOLOGY AT FOLLOW-UP. TOTAL TIME SPENT ON TELEPHONE VISIT WAS APPROXIMATELY 12 MINUTES. DISPOSITION & COMMUNICATION FOLLOW UP 3 MONTHS IN CLINIC (REASON: LBP/MED MGMNT) ELECTRONICALLY SIGNED BY ANNCY MUNIZ ON 07/21/2019 AT 05:10 PM EDT DISCLAIMER : THIS IS A VISIT SUMMARY EXTRACTED FROM THE [employer] CHART. IT IS NOT A COPY OF THE [employer] PROGRESS NOTE. JAVIER
== END ==
LOC: M PAIN 10:45
PROVIDERS: ATTEND Nurse Practitioner Family
DX: M79.18 Myalgia, other site (principal); Z79.891 Long term (current) use of opiate analgesic

== ENCOUNTER → 2019-10-18 | Outpatient (CLI) | payer BC | LOC: M PAIN 08:45 | PROVIDERS: ATTEND Nurse Practitioner Family | DX: M51.14 Intervertebral disc disorders with radiculopathy, thoracic region (principal); Z79.891 Long term (current) use of opiate analgesic ==

== ENCOUNTER → 2019-10-25 | Outpatient (CLI) | payer BC ==
--- NOTE | 2019-11-22 07:22 | REP ---
NONCONTRAST CHEST CT CLINICAL: Abnormal lung findings. TECHNIQUE: Axial noncontrast images from the thoracic inlet to the upper abdomen with coronal and sagittal reformations. COMPARISON: 11/02/2018, 09/22/2017. FINDINGS: The bilateral lung faria are well aerated. Minimal chronic linear scarring primarily noted in the right middle lobe again appreciated. A 6-mm nonsolid density in the anterior right lower lobe (Image 56), remained stable through 2018. No new consolidation, nodule, or mass. No effusion. No pneumothorax. Tracheobronchial tree is patent. No adenopathy. Mediastinum demonstrates normal thoracic aorta, pulmonary vasculature, and heart/pericardium. Surrounding musculoskeletal structures are intact. IMPRESSION: * Previously noted 6 mm density in the anterior right lower lobe remained stable through 2018 and requires no further evaluation. * No new acute mediastinal or pleural parenchymal process appreciated. MTDD
== END ==
LOC: M RAD 07:23
PROVIDERS: ATTEND Internal Medicine Pulmonary Disease
DX: R91.8 Other nonspecific abnormal finding of lung field (principal)

== ENCOUNTER → 2019-11-22 | Outpatient (REF) | payer BC ==
[2019-11-22 12:36] LABS: BASO # 0.1 10^3/uL (0.0-0.2); BASO % 0.6 % (0.0-1.0); EOS # 0.2 10^3/uL (0.0-0.5); EOS % 2.7 % (0.0-3.0); HEMATOCRIT 42.2 % (36.0-47.0); HEMOGLOBIN 14.3 g/dl (12.0-15.5); LYMPH # 1.9 10^3/uL (1.5-5.0); LYMPH % 24.6 % (24.0-44.0); MEAN CORPUSCULAR HEMOGLOBIN 32.4 pg (27.0-33.0); MEAN CORPUSCULAR HGB CONC 33.9 g/dl (32.0-36.5); MEAN CORPUSCULAR VOLUME 95.5 fl (80.0-96.0); MONO # 0.4 10^3/uL (0.0-0.8); MONO % 5.7 % (0.0-5.0); NEUTROPHILS # 5.1 10^3/uL (1.5-8.5); PLATELET COUNT, AUTOMATED 301 10^3/uL (150-450); RED BLOOD COUNT 4.42 10^6/uL (4.00-5.40); WHITE BLOOD COUNT 7.8 10^3/uL (4.0-10.0)
[2019-11-22 12:56] LABS: ALBUMIN 3.5 GM/DL (3.2-5.2); ALT/SGPT 24 U/L (12-78); BILIRUBIN,TOTAL 0.7 MG/DL (0.2-1.0); BLOOD UREA NITROGEN 22 MG/DL (7-18); CALCIUM LEVEL 8.8 MG/DL (8.8-10.2); CARBON DIOXIDE LEVEL 26 MEQ/L (21-32); CHLORIDE LEVEL 108 MEQ/L (98-107); CHOLESTEROL LEVEL 149 MG/DL (<200); FREE T4 0.83 NG/DL (0.76-1.46); GLOMERULAR FILTRATION RATE > 60.0 (>45); GLUCOSE, FASTING 93 MG/DL (70-100); HDL CHOLESTEROL 50 MG/DL (>40); LDL CHOLESTEROL 82 MG/DL (<100); NON-HDL-C 99 MG/DL; POTASSIUM SERUM 4.4 MEQ/L (3.5-5.1); SODIUM LEVEL 141 MEQ/L (136-145); TOTAL 25(OH) VITAMIN D 27.6 NG/ML (30.0-100.0); TOTAL PROTEIN 6.8 GM/DL (6.4-8.2); TRIGLYCERIDES LEVEL 85 MG/DL (<150)
== END ==
LOC: M SFHCCLAY 11:11
PROVIDERS: ATTEND Physician Assistant
DX: I10 Essential (primary) hypertension (principal); E78.5 Hyperlipidemia, unspecified

== ENCOUNTER → 2020-01-11 | Outpatient (CLI) | payer BC ==
--- NOTE | 2020-01-14 02:20 | ECWPNPC ---
PATIENT NAME: RODNEY GOODWIN : 1960 GENDER: FEMALE VISIT DATE: 01/11/2020 DISCHARGE DATE: 01/11/20 1504 VISIT LOCKED DATE TIME: PHYSICIAN: NAYELI BAJWA PHYSICIAN PAGER NO: ACTIVE RESOURCE: NAYELI BAJWA REASON FOR APPOINTMENT 1. LBP HISTORY OF PRESENT ILLNESS GENERAL: HERE FOR 2 MONTH FOLLOW-UP OF CHRONIC LOW BACK PAIN/MEDICATION MANAGEMENT. WILL BE HAVING LUMBAR SURGERY AT THE END OF THIS MONTH. CURRENTLY USING HYDROCODONE 5/325 ONE TABLET TWICE A DAY NEEDED FOR SEVERE PAIN EPISODES. SHE IS AWARE THAT SURGEON WOULD HAVE TO TAKE CARE OF HER PAIN MEDICATIONS AND COULDN'T INCREASE PAIN MEDICATIONS FOR POSTOPERATIVE PAIN THAT WE PRESCRIBED FOR CHRONIC PAIN. FINDS CURRENT MEDICATION SOMEWHAT EFFECTIVE AT REDUCING SEVERE PAIN EPISODES. -. FALL RISK SCREENING: SCREENING :NO FALLS REPORTED IN THE LAST YEAR PAIN SCREENING: PATIENT HAS A COMPLAINT OF ACUTE OR CHRONIC PAIN :YES LOCATION OF PAIN:MID BACK, LOW BACK, HAND(S) INTENSITY OF PAIN (SCALE OF 1 TO 10):9 WHAT DOES YOUR PAIN FEEL LIKE:ACHING, SHARP, SHOOTING DURATION:CONTINOUS, CONSTANT PAIN IS INCREASED BY:ACTIVITIES PAIN IS DECREASED BY:OTHERS NOTHING LEVEL OF RELIEF FROM PAIN TREATMENTS IN THE PAST:0% PAIN HAS INTERFERED WITH THE FOLLOWING:BATHING/DRESSING, WALKING ABILITY, HOUSEWORK, SLEEP, TRANSPORTATION, TOILETING NURSING NOTE: -. PAIN CENTER INTAKE QUESTIONS: DO YOU HAVE A HISTORY OF MRSA? :NO DO YOU TAKE A BLOOD THINNERS? :NO DO YOU HAVE ANY BLEEDING DISORDERS? :NO ANY NEW NUMBNESS OR WEAKNESS IN YOUR LEGS OR ARMS? :NO ANY PACEMAKER,DEFIBRILLATOR, OR DORSAL COLUMN STIMULATOR? :NO DO YOU HAVE ANY RASHES OR OPEN SORES? :NO ARE YOU ALLERGIC TO IV DYE? :NO ARE YOU DIABETIC? :NO ANY NEW PROBLEMS WITH YOUR MEDICATIONS? :NO HAVE YOU RECEIVED A VACCINE IN THE PAST 30 DAYS? :YES IF SO WHAT VACCINE AND WHEN? FLU VACCINE 12/28/19 DO YOU PLAN TO RECEIVE A VACCINE IN THE NEXT 21 DAYS? :NO DO YOU NEED ANY PRESCRIPTION? :NO DO YOU TAKE ANY IMMUNOSUPPRESSIVE MEDICATIONS? :NO IS THERE A CHANCE YOU COULD BE ? :NO ARE YOU BREAST FEEDING? :NO CURRENT MEDICATIONS TAKING LISINOPRIL 40 40 MG TABLET 1 TAB ORAL ONCE DAILY TAKING TAMOXIFEN CITRATE 10 MG TABLET 1 TABLET ORALLY DAILY TAKING AMLODIPINE BESYLATE 10 MG TABLET 1 TABLET ORALLY ONCE A DAY TAKING LIPITOR 40 MG TABLET 1 TABLET ORALLY ONCE A DAY TAKING VENTOLIN HFA 108 (90 BASE) MCG/ACT AEROSOL SOLUTION 2 PUFFS INHALATION 4 TIMES A DAY NEEDED TAKING SYMBICORT 80-4.5 MCG/ACT AEROSOL 2 PUFFS INHALATION TWICE A DAY TAKING GABAPENTIN 100 MG CAPSULE 1 CAPSULE ORALLY ONCE A DAY TAKING MOBIC 15 MG TABLET 1 TABLET ORALLY ONCE A DAY TAKING LASIX 20 MG TABLET 1 TABLET ORALLY ONCE A DAY TAKING NORCO 5-325 MG TABLET 1 TABLET NEEDED ORALLY EVERY 8 HOURS WHEN NECESSARY FOR PAIN MDD 2 NOT-TAKING LISINOPRIL 40 MG TABLET 1 TABLET ORALLY ONCE A DAY NOT-TAKING AMLODIPINE BESYLATE 10 MG TABLET 1 TABLET ORALLY ONCE A DAY PAST MEDICAL HISTORY HYPERTENSION ASTHMA HYPERLIPIDEMIA TENOSYNOVITIS PERIMENOPAUSE H/O HSV STRESS TEST DONE BY DR RODRIGUES IN 2015 NORMAL BREAST CA BASAL CELL CARCINOMA 2014 CHRONIC LOW BACK PAIN SPINAL STENOSIS ALLERGIES SHRIMP: HIVES, RASH - ALLERGY ACETAMINOPHEN-CODEINE #3: CHEST PAINS - ALLERGY SURGICAL HISTORY HYSTERECTOMY 1994 CHOLECYSTECTOMY 2009 LASIK 1999 HEART CATHETERIZATION 07/2009 BASAL CELL CA, LOWER L NOSTRIL (EXCISED) FOLLOWED BY DR RICKS IN [place] 10/2013 COLONOSCOPY 2014, 201105/15/2011 RIGHT KNEE ARTHOSCOPY 08/2015 LUMPECTOMY-LEFT BREAST 2018 RIGHT KNEE TOTAL REPLACEMENT 12/2018 FAMILY HISTORY FATHER: 83 YRS, AMI, STROKE, DIAGNOSED WITH HYPERTENSION, UNSPECIFIED HEART DISEASE, UNSPECIFIED CEREBRAL ARTERY OCCLUSION WITH CEREBRAL INFARCTION MOTHER: 83 YRS, HTN, HIGH CHOLESTEROL, STROKE, PLAVIX, DEPRESSION, HYPERTENSION SIBLINGS: ALIVE 60,59,57 YRS, SISTERS-ALL HTN SON(S): ALIVE 36 YRS, HTN PATERNAL GRAND FATHER: HYPERTENSION PATERNAL GRAND MOTHER: HYPERTENSION 3 SISTER(S) - HEALTHY. 1 SON(S) - HEALTHY. DENIES BREAST, COLON OR OVARIAN CANCER HISTORY. SOCIAL HISTORY GENERAL: TOBACCO USE ARE YOU A:FORMER SMOKER HOW LONG HAS IT BEEN SINCE YOU LAST SMOKED?1-5 YEARS QUIT 11/24/2018 VAPORNO E-CIGARETTENO SMOKING CESSATION INFORMATION GIVEN01/11/2019 MALES, AGE 65-75 WITH 5 PACK SMOKING HISTORY (100 CIGARETTES LIFETIME) FORMER 01/11/2020 LATEX QUESTIONNAIRE LATEX ALLERGY : HAVE YOU EVER DEVELOPED ANY TYPE OF REACTION AFTER HANDLING LATEX PRODUCTS SUCH RUBBER GLOVES, CONDOMS, DIAPHRAGMS, BALLOONS, SOCKS, OR UNDERWEAR?NO LATEX ALLERGY : HAVE YOU EVER DEVELOPED ANY TYPE OF REACTION DURING OR AFTER DENTAL APPOINTMENT, VAGINAL/RECTAL EXAMINATION, SURGICAL PROCEDURE, OR ANY OTHER EXPOSURE?NO DATE ASKED : 01/11/2020 LATEX RISK : HAVE YOU EVER HAD ANY DIFFICULTY BREATHING OR HIVES AFTER EATING OR HANDLING ANY FRUITS, OR VEGETABLES; SUCH KIWI, BANANAS, STONE FRUITS, OR CHESTNUTSNO LATEX RISK : DO YOU HAVE A PREVIOUS PERSONAL HISTORY OF MORE THAN NINE SURGERIES, SPINA BIFIDA, OR REPEATED CATHERIZATIONS? NO LATEX RISK : ARE YOU FREQUENTLY EXPOSED TO LATEX PRODUCTS IN YOUR OCCUPATION?YES PT STATES SHE USES LATEX PRODUCTS AT WORK LUNG CANCER SCREENING SMOKING STATUS:FORMER SMOKER IS THE PATIENT BETWEEN THE AGE OF 54 AND 76?YES HAVE YOU QUIT SMOKING WITHIN THE PAST 15 YEARS?YES BMI CARE GOAL FOLLOW-UP ABOVE NORMAL BMI FOLLOW-UPDIETARY NEEDS EDUCATION ALCOHOL SCREENING DID YOU HAVE A DRINK CONTAINING ALCOHOL IN THE PAST YEAR?YES HOW OFTEN DID YOU HAVE SIX OR MORE DRINKS ON ONE OCCASION IN THE PAST YEAR?NEVER (0 POINTS) HOW MANY DRINKS DID YOU HAVE ON A TYPICAL DAY WHEN YOU WERE DRINKING IN THE PAST YEAR?1 OR 2 (0 POINTS) HOW OFTEN DID YOU HAVE A DRINK CONTAINING ALCOHOL IN THE PAST YEAR?MONTHLY OR LESS (1 POINT) POINTS1 INTERPRETATIONNEGATIVE RECREATIONAL DRUG USE DRUG USE?NO CAFFEINE 2/DAY. SEXUAL HX HAD SEX IN THE LAST 12 MONTHS (VAGINAL, ORAL, OR ANAL)?YES WITHMEN ONLY USE PROTECTION?NO HAVE YOU EVER HAD AN STD?NO HIV / HEP-C SCREENING HIV TEST OFFERED TO PATIENT:YES DATE OFFERED:01/11/2019 CONSENT SIGNED TEST ACCEPTED:NO HEP-C TEST OFFERED TO PATIENT:YES DATE OFFERED:01/11/2019 REASON:PATIENT DECLINED TEST ACCEPTED:NO CONSENT SIGNED REASON:PATIENT DECLINED BROCHURE PROVIDED TO PATIENTNO -DECLINED JEHOVAH'S WITNESS NO TENRIISM BELIEFS THAT WOULD IMPACT HEALTH CARE. LANGUAGE [place]. 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 DIET: NO HX EATING DISORDERS. EXERCISE: WALKING AND VERY ACTIVE THROUGH WORK AT [employer]. MARITAL STATUS: . OTHERS AT HOME: LIVES WITH HER 1 CAT, 2 DOGS; BOYFRIEND. TODAY'S VISIT 06/30/19 PATIENT DESCRIBES PAIN :ACHING, HAVE IT ALL THE TIME, SHOOTING FROM 0-10, WHAT LEVEL IS YOUR PAIN TODAY?8 PRECIPITATING FACTORS ACTIVITY ALLEVIATING FACTORS LAY DOWN WITH LEGS ELEVATED IMPACT ON FUNCTION YES PAIN CLINIC PFS, CLERGY, PUBLIC HEALTH REFERRALS HAS THE PATIENT BEEN EDUCATED REGARDING HIS/HER PLAN OF CARE?YES HAS THE PATIENT BEEN EDUCATED REGARDING PAIN, THE RISK FOR PAIN, THE IMPORTANCE OF EFFECTIVE PAIN MANAGEMENT, AND THE PAIN ASSESSMENT PROCESS?YES ADVANCE DIRECTIVE ADVANCE DIRECTIVE DISCUSSED WITH PATIENT:YES PT DOES NOT HAVE HCP AND DECLINES INFORMATION OR ASSISTANCE WITH FORM TODAY. PAT DONE 06/29/19. HOSPITALIZATION/MAJOR DIAGNOSTIC PROCEDURE SURGERY REVIEW OF SYSTEMS FOLLOW-UP ROS: CARDIOLOGY: NEGATIVE FOR, CHEST PAIN, ORTHOPNEA/PND, PALPITATIONS . HEME/LYMPH NO EXCESSIVE BLEEDING OR BRUISING . ENDOCRINOLOGY: NO NEW/WORSENING HEAT/COLD INTOLERANCE . GASTROENTEROLOGY: DENIES OCCASIONAL NAUSEA/VOMITING . GENERAL: NEGATIVE FOR, CHILLS, FATIGUE, FEVER, LOSS OF APPETITE, SLEEPY . GI/ NEGATIVE FOR, DYSURIA, FLANK PAIN . HEENT NEGATIVE FOR, CONGESTION, EAR PAIN, HEADACHE, SORE THROAT . MUSCULOSKELETAL POSITIVE FOR BACK PAIN AND OCCASIONAL LEG PAIN . NEUROLOGY: NO NUMBNESS, LOSS OF FUNCTION, SYNCOPE,SEIZURE,WEAKNESS . PULMONOLOGY: NEGATIVE FOR, BREATHING PROBLEMS, CHEST PAIN WITH BREATHING, CHEST TIGHTNESS, COUGH, SHORTNESS OF BREATH . VITAL SIGNS WT 189 LBS, HT 67 IN, BMI 29.60 INDEX, BP 136/77 MM HG, HR 89 /MIN, RR 18 /MIN, TEMP 98.3 F, OXYGEN SAT % 96, SAFE IN ENV? (Y/N) Y, REVIEWED BY: EM. EXAMINATION GENERAL EXAMINATION: GENERAL AWAKE,ALERT ,PLEASANT . PSYCH AFFECT NORMAL . HEENT:EOMI, NO SCLERAL ICTERUS, NARES PATENT, ORAL MUCOSA MOIST. NECK:NO LYMPHADENOPATHY, SUPPLE, NO THYROMEGALLY, NO JVD OR BRUITS. LUNGS: LUNG GIANG ARE CLEAR TO AUSCULTATION BILATERALLY. GOOD MOVEMENT OF AIR . HEART: S1, S2 IN A REGULAR RATE AND RHYTHM. NO SIGNIFICANT MURMURS, RUBS OR GALLOPS NOTED . ABDOMEN:SOFT, NON-TENDER, NO ORGANOMEGALY, BOWEL SOUNDS ARE NORMAL. EXTREMITIES:NO CLUBBING, NO EDEMA. 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 URINE TOXICOLOGY TODAY , RISKS OF NARCOTIC/OPIOD MEDICATIONS INCLUDES BUT IS NOT LIMITED TO RISK OF DEPENDANCE/DEVELOPMENT OF ADDICTION, MOOD DISTURBANCE AND DEPRESSION, OSTEOPOROSIS, HORMONAL AND LABIDAL CHANGES, RESPIRATORY DEPRESSION AND . PATIENT IS ADVISED NOT TO DRIVE OR DRINK ALCOHOL WHILE ON THESE MEDICATIONS. PROCEDURE CODES FA211 ESTABILISHED PATIENT [facility] CHARGE DISPOSITION & COMMUNICATION FOLLOW UP 3 MONTHS (REASON: CHRONIC LOW BACK PAIN/MEDICATION MANAGEMENT/POST LUMBAR SURGERY 01/24/2020) ELECTRONICALLY SIGNED BY NANCY MUNIZ ON 01/13/2020 AT 03:48 PM EST DISCLAIMER : THIS IS A VISIT SUMMARY EXTRACTED FROM THE [employer] CHART. IT IS NOT A COPY OF THE [employer] PROGRESS NOTE. JAVIER
== END ==
LOC: M PAIN 14:30
PROVIDERS: ATTEND Nurse Practitioner Family
DX: M43.16 Spondylolisthesis, lumbar region (principal); G89.29 Other chronic pain; I10 Essential (primary) hypertension; J45.909 Unspecified asthma, uncomplicated; Z96.651 Presence of right artificial knee joint; Z87.891 Personal history of nicotine dependence; Z88.5 Allergy status to narcotic agent; Z91.013 Allergy to seafood; Z79.899 Other long term (current) drug therapy

== ENCOUNTER → 2020-01-11 | Outpatient (REF) | payer BC ==
[2020-01-11 12:10] LABS: INR 0.94; PROTHROMBIN TIME 12.8 SECONDS (12.5-14.3)
[2020-01-11 12:50] LABS: BLOOD UREA NITROGEN 17 MG/DL (7-18); CALCIUM LEVEL 9.2 MG/DL (8.8-10.2); CARBON DIOXIDE LEVEL 27 MEQ/L (21-32); CHLORIDE LEVEL 109 MEQ/L (98-107); CREATININE FOR GFR 0.76 MG/DL (0.55-1.30); GLOMERULAR FILTRATION RATE > 60.0 (>45); GLUCOSE, FASTING 86 MG/DL (70-100); POTASSIUM SERUM 4.1 MEQ/L (3.5-5.1); SODIUM LEVEL 144 MEQ/L (136-145)
== END ==
LOC: M LABDRAWC 11:08
PROVIDERS: ATTEND Orthopaedic Surgery Orthopaedic Surgery of the Spine
DX: Z01.818 Encounter for other preprocedural examination (principal)

== ENCOUNTER → 2020-03-29 | Outpatient (CLI) | payer BC ==
[~2020-03-29] MED LIST changes: +AMLO1TAB25; +ATOR40TA75; +CYCL-707; +FURO20TA2; +GABA-282; +LISI40TA4; +MELO15TA28; +OXYC-517; +SYMB80INH; +TAMO20TA8; +VENTAER INH
== END ==
LOC: M LABSMTC 10:12
PROVIDERS: ATTEND Anesthesiology
DX: Z01.812 Encounter for preprocedural laboratory examination (principal); Z20.822 Contact with and (suspected) exposure to COVID-19

== ENCOUNTER 2020-04-03 12:40 | Day surgery (SDC) | payer BC ==
[~2020-04-03] VITALS: Ht 170.2 cm; Wt 86.2 kg
[~2020-04-03 12:40] MED LIST changes: +NS 1,000 ML IV ONE
[2020-04-03] MEDS ORDERED: propofoL 200 MG/20 ML VIAL As Ordered ONE (14:57)
[2020-04-03] MEDS ORDERED: LIDOCAINE 2% 100MG/5ML SDV (FOR ANES.) As Ordered ONE (14:57)
--- NOTE | 2020-04-03 15:28 | ROOR ---
Patient Name: Asuncion Rai Procedure Date: 04/03/2020 3:01 PM Date of : 1960 Age: 59 Room: [facility] Gender: Female Note Status: Finalized Procedure: Colonoscopy Indications: High risk colon cancer surveillance: Personal history of colonic polyps, Last colonoscopy: May 2014 Providers: Mars DUFF MD Referring MD: TOBY Rosa pa-c Requesting Provider: Medicines: Monitored Anesthesia Care Complications: No immediate complications. Procedure: Pre-Anesthesia Assessment: - The heart rate, respiratory rate, oxygen saturations, blood pressure, adequacy of pulmonary ventilation, and response to care were monitored throughout the procedure. The Colonoscope was introduced through the anus and advanced to 10 cm into the ileum. The colonoscopy was performed without difficulty. The patient tolerated the procedure well. The quality of the bowel preparation was good. Findings: The perianal and digital rectal examinations were normal. A diminutive polyp was found in the sigmoid colon. The polyp was sessile. The polyp was removed with a jumbo cold forceps. Resection and retrieval were complete. Multiple small and large-mouthed diverticula were found in the sigmoid colon. Internal hemorrhoids were found during retroflexion. The hemorrhoids were medium-sized. The exam was otherwise without abnormality on direct and retroflexion views. Impression: - One diminutive polyp in the sigmoid colon, removed with a jumbo cold forceps. Resected and retrieved. - Diverticulosis in the sigmoid colon. - Internal hemorrhoids. - The examination was otherwise normal on direct and retroflexion views. Recommendation: - Repeat colonoscopy in 5 years for surveillance. Procedure Code(s): --- Professional --- 39393, Colonoscopy, flexible; with biopsy, single or multiple Diagnosis Code(s): --- Professional --- Z86.010, Personal history of colonic polyps K63.5, Polyp of colon K64.8, Other hemorrhoids K57.30, Diverticulosis of large intestine without perforation or abscess without bleeding CPT copyright 2019 [employer]. All rights reserved. The codes documented in this report are preliminary and upon instructor of spanish review may be revised to meet current compliance requirements. Mars Duff MD Mars DUFF MD 04/03/2020 3:27:38 PM Electronically signed by Mars DUFF MD Number of Addenda: 0 Note Initiated On: 04/03/2020 3:01 PM Estimated Blood Loss: Estimated blood loss: none.
[2020-04-03 16:13] VITALS: BP 145/83
== END 2020-04-03 16:10 | disposition home or self-care (01) ==
LOC: M OPP 12:40
PROVIDERS: ATTEND Internal Medicine Gastroenterology
DX: Z12.11 Encounter for screening for malignant neoplasm of colon (principal); Z86.010 Personal history of colon polyps; K63.5 Polyp of colon; K57.30 Diverticulosis of large intestine without perforation or abscess without bleeding; K64.8 Other hemorrhoids; I10 Essential (primary) hypertension; E78.5 Hyperlipidemia, unspecified; R60.0 Localized edema; M19.90 Unspecified osteoarthritis, unspecified site; J45.909 Unspecified asthma, uncomplicated; Z85.3 Personal history of malignant neoplasm of breast; Z92.3 Personal history of irradiation; Z87.891 Personal history of nicotine dependence; Z96.651 Presence of right artificial knee joint; Z88.5 Allergy status to narcotic agent; Z91.013 Allergy to seafood; Z79.899 Other long term (current) drug therapy; Z82.49 Family history of ischemic heart disease and other diseases of the circulatory system

== ENCOUNTER → 2020-04-12 | Outpatient (CLI) | payer BC ==
[~2020-04-12] MED LIST changes: -NS 1,000 ML IV ONE
--- NOTE | 2020-04-14 06:45 | ECWPNPC ---
PATIENT NAME: RODNEY GOODWIN : 1960 GENDER: FEMALE VISIT DATE: 04/12/2020 DISCHARGE DATE: 04/12/20 1020 VISIT LOCKED DATE TIME: PHYSICIAN: NAYELI BAJWA PHYSICIAN PAGER NO: ACTIVE RESOURCE: NAYELI BAJWA REASON FOR APPOINTMENT 1. CHRONIC LOW BACK PAIN/MEDICATION MANAGEMENT HISTORY OF PRESENT ILLNESS GENERAL: HERE FOR FOLLOW-UP OF CHRONIC LOW BACK PAIN. HAD LUMBAR FUSION IN DECEMBER 2019. REPORTING NO IMPROVEMENT POST FUSION. SHE IS QUITE DISCOURAGED. DESCRIBES ACHING PAIN ACROSS HER LOWER BACK WITH AMBULATION. PAIN IS RESOLVED AT REST. DENIES RADICULAR SYMPTOMS. WASN'T HAVING BAD RADICULAR SYMPTOMS PRESURGERY. NO RECENT INJURY. 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 -. FALL RISK SCREENING: SCREENING :NO FALLS REPORTED IN THE LAST YEAR PAIN SCREENING: PATIENT HAS A COMPLAINT OF ACUTE OR CHRONIC PAIN :YES LOCATION OF PAIN:LOW BACK INTENSITY OF PAIN (SCALE OF 1 TO 10):6 WHAT DOES YOUR PAIN FEEL LIKE:ACHING, CONTINOUS DURATION:CONTINOUS, CONSTANT, ALL DAY PAIN IS INCREASED BY:ACTIVITIES PAIN IS DECREASED BY:SITTING NURSING NOTE: -. PAIN CENTER INTAKE QUESTIONS: DO YOU HAVE A HISTORY OF MRSA? :NO DO YOU TAKE A BLOOD THINNERS? :NO DO YOU HAVE ANY BLEEDING DISORDERS? :NO ANY NEW NUMBNESS OR WEAKNESS IN YOUR LEGS OR ARMS? :NO ANY PACEMAKER,DEFIBRILLATOR, OR DORSAL COLUMN STIMULATOR? :NO DO YOU HAVE ANY RASHES OR OPEN SORES? :NO ARE YOU ALLERGIC TO IV DYE? :NO ARE YOU DIABETIC? :NO ANY NEW PROBLEMS WITH YOUR MEDICATIONS? :NO HAVE YOU RECEIVED A VACCINE IN THE PAST 30 DAYS? :YES IF SO WHAT VACCINE AND WHEN? TETANUS DO YOU PLAN TO RECEIVE A VACCINE IN THE NEXT 21 DAYS? :NO DO YOU NEED ANY PRESCRIPTION? :NO DO YOU TAKE ANY IMMUNOSUPPRESSIVE MEDICATIONS? :NO IS THERE A CHANCE YOU COULD BE ? :NO ARE YOU BREAST FEEDING? :NO CURRENT MEDICATIONS TAKING LISINOPRIL 40 40 MG TABLET 1 TAB ORAL ONCE DAILY TAKING TAMOXIFEN CITRATE 10 MG TABLET 1 TABLET ORALLY DAILY TAKING VENTOLIN HFA 108 (90 BASE) MCG/ACT AEROSOL SOLUTION 2 PUFFS INHALATION 4 TIMES A DAY NEEDED TAKING GABAPENTIN 100 MG CAPSULE 1 CAPSULE ORALLY ONCE A DAY TAKING MOBIC 15 MG TABLET 1 TABLET ORALLY ONCE A DAY TAKING LASIX 20 MG TABLET 1 TABLET ORALLY ONCE A DAY TAKING AMLODIPINE BESYLATE 10 MG TABLET 1 TABLET ORALLY ONCE A DAY TAKING LIPITOR 40 MG TABLET 1 TABLET ORALLY ONCE A DAY TAKING SYMBICORT 80-4.5 MCG/ACT AEROSOL 2 PUFFS INHALATION PURA TWICE A DAY NOT-TAKING NORCO 5-325 MG TABLET 1 TABLET NEEDED ORALLY EVERY 8 HOURS WHEN NECESSARY FOR PAIN MDD 2 MEDICATION LIST REVIEWED AND RECONCILED WITH THE PATIENT PAST MEDICAL HISTORY HYPERTENSION ASTHMA HYPERLIPIDEMIA TENOSYNOVITIS PERIMENOPAUSE H/O HSV STRESS TEST DONE BY DR RODRIGUES IN 2016 NORMAL BREAST CA BASAL CELL CARCINOMA 2015 CHRONIC LOW BACK PAIN SPINAL STENOSIS ALLERGIES SHRIMP: HIVES, RASH - ALLERGY ACETAMINOPHEN-CODEINE #3: CHEST PAINS - ALLERGY SOCIAL HISTORY GENERAL: TOBACCO USE ARE YOU A:FORMER SMOKER HOW LONG HAS IT BEEN SINCE YOU LAST SMOKED?1-5 YEARS QUIT 11/24/2018 MALES, AGE 65-75 WITH 5 PACK SMOKING HISTORY (100 CIGARETTES LIFETIME) FORMER 01/11/2020 SMOKING CESSATION INFORMATION GIVEN01/11/2019 VAPORNO E-CIGARETTENO LATEX QUESTIONNAIRE LATEX ALLERGY : HAVE YOU EVER DEVELOPED ANY TYPE OF REACTION AFTER HANDLING LATEX PRODUCTS SUCH RUBBER GLOVES, CONDOMS, DIAPHRAGMS, BALLOONS, SOCKS, OR UNDERWEAR?NO LATEX ALLERGY : HAVE YOU EVER DEVELOPED ANY TYPE OF REACTION DURING OR AFTER DENTAL APPOINTMENT, VAGINAL/RECTAL EXAMINATION, SURGICAL PROCEDURE, OR ANY OTHER EXPOSURE?NO LATEX RISK : HAVE YOU EVER HAD ANY DIFFICULTY BREATHING OR HIVES AFTER EATING OR HANDLING ANY FRUITS, OR VEGETABLES; SUCH KIWI, BANANAS, STONE FRUITS, OR CHESTNUTSNO LATEX RISK : DO YOU HAVE A PREVIOUS PERSONAL HISTORY OF MORE THAN NINE SURGERIES, SPINA BIFIDA, OR REPEATED CATHERIZATIONS? NO LATEX RISK : ARE YOU FREQUENTLY EXPOSED TO LATEX PRODUCTS IN YOUR OCCUPATION?YES PT STATES SHE USES LATEX PRODUCTS AT WORK DATE ASKED : 04/12/2020 ALCOHOL USE: NO. LUNG CANCER SCREENING SMOKING STATUS:FORMER SMOKER IS THE PATIENT BETWEEN THE AGE OF 54 AND 76?YES HAVE YOU QUIT SMOKING WITHIN THE PAST 15 YEARS?YES BMI CARE GOAL FOLLOW-UP ABOVE NORMAL BMI FOLLOW-UPDIETARY NEEDS EDUCATION ALCOHOL SCREENING DID YOU HAVE A DRINK CONTAINING ALCOHOL IN THE PAST YEAR?YES HOW OFTEN DID YOU HAVE SIX OR MORE DRINKS ON ONE OCCASION IN THE PAST YEAR?NEVER (0 POINTS) HOW MANY DRINKS DID YOU HAVE ON A TYPICAL DAY WHEN YOU WERE DRINKING IN THE PAST YEAR?1 OR 2 (0 POINTS) HOW OFTEN DID YOU HAVE A DRINK CONTAINING ALCOHOL IN THE PAST YEAR?MONTHLY OR LESS (1 POINT) POINTS1 INTERPRETATIONNEGATIVE RECREATIONAL DRUG USE DRUG USE?NO CAFFEINE 2/DAY. SEXUAL HX HAD SEX IN THE LAST 12 MONTHS (VAGINAL, ORAL, OR ANAL)?YES WITHMEN ONLY USE PROTECTION?NO HAVE YOU EVER HAD AN STD?NO HIV / HEP-C SCREENING HIV TEST OFFERED TO PATIENT:YES DATE OFFERED:01/11/2019 CONSENT SIGNED TEST ACCEPTED:NO HEP-C TEST OFFERED TO PATIENT:YES DATE OFFERED:01/11/2019 REASON:PATIENT DECLINED TEST ACCEPTED:NO CONSENT SIGNED REASON:PATIENT DECLINED BROCHURE PROVIDED TO PATIENTNO -DECLINED ADVENTISM NO JEHOVAH'S WITNESS BELIEFS THAT WOULD IMPACT HEALTH CARE. LANGUAGE AZERI. 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 DIET: NO HX EATING DISORDERS. EXERCISE: WALKING AND VERY ACTIVE THROUGH WORK AT [employer]. MARITAL STATUS: . OTHERS AT HOME: LIVES WITH HER 1 CAT, 2 DOGS; BOYFRIEND. TODAY'S VISIT 06/30/19 PATIENT DESCRIBES PAIN :ACHING, HAVE IT ALL THE TIME, SHOOTING FROM 0-10, WHAT LEVEL IS YOUR PAIN TODAY?8 PRECIPITATING FACTORS ACTIVITY ALLEVIATING FACTORS LAY DOWN WITH LEGS ELEVATED IMPACT ON FUNCTION YES - HAS THE PATIENT BEEN EDUCATED REGARDING HIS/HER PLAN OF CARE?YES HAS THE PATIENT BEEN EDUCATED REGARDING PAIN, THE RISK FOR PAIN, THE IMPORTANCE OF EFFECTIVE PAIN MANAGEMENT, AND THE PAIN ASSESSMENT PROCESS?YES ADVANCE DIRECTIVE ADVANCE DIRECTIVE DISCUSSED WITH PATIENT:YES PT DOES NOT HAVE HCP AND DECLINES INFORMATION OR ASSISTANCE WITH FORM TODAY. PAT DONE 06/29/19. REVIEW OF SYSTEMS CONSTITUTIONAL: ANY RECENT FEVER NO . CHILLS NO . WEIGHT CHANGE OF UNKNOWN REASONS NO . GASTROENTEROLOGY: NEW UNEXPLAINABLE CHANGES IN BOWEL CONTROL NO . CONSTIPATION NO . GENITOURINARY: ANY NEW CHANGE IN BLADDER CONTROL? NO . NEUROLOGY: NEW ONSET DIZZINESS OR NEUROLOGICAL CHANGES NOT MENTIONED NO . NEW NUMBNESS OR PAIN PATTERNS NOT MENTIONED AND PERTINENT TO TODAY'S VISIT NO . CARDIOLOGY: NEW CHEST PRESSURE NO . NEW CHEST PAIN NO . RESPIRATORY: UNEXPLAINABLE COUGH NO . NEW SHORTNESS OF BREATH NO . VITAL SIGNS WT 203.4 LBS, HT 67 IN, BMI 31.85 INDEX, BP 139/88 MM HG, HR 85 /MIN, RR 18 /MIN, TEMP 98.4 F, OXYGEN SAT % 98%, SAFE IN ENV? (Y/N) YES, NA INITIALS [place] 09:25T.GABE MA. EXAMINATION GENERAL EXAMINATION: GENERAL ALERT,NO DISTRESS . PSYCH AFFECT NORMAL . LUNGS: LUNG SOUNDS ARE CLEAR . HEART: HEART RATE REGULAR . MUSCULOSKELETAL: MST 5/5 BILAT. LOWER EXTREMITIES . LUMBAR: TENDERNESS BILAT. SIJ . WELL-HEALED SURGICAL SCAR L/S AXIS. DIAGNOSTIC TESTS REVIEWED CT L/S [id number] . ASSESSMENTS BILATERAL SACROILIITIS - M46.1 (PRIMARY) TREATMENT BILATERAL SACROILIITIS START HYDROCODONE-ACETAMINOPHEN TABLET, 5-325 MG, 1 TABLET NEEDED, ORALLY, Q8H PRN MDD3, 30 DAYS, 90, REFILLS 0 NOTES: BILATERAL SACROILIAC JOINT BLOCK , ISTOP REGISTRY REVIEWED AND DEMONSTRATES COMPLLIANCE. , [facility] NARCOTIC AGREEMENT WAS REVIEWED AND SIGNED TODAY BY THE PATIENT. SEE ATTACHED DOCUMENT FOR FULL DETAILS; SPECIFIC ISSUES WERE REVIEWED: 1) KEEP PAIN MEDS IN THEIR ORIGINAL BOTTLES AND ANY WEEKLY PLANNERS ARE TO BE BROUGHT TO THE PAIN CENTER AT EVERY VISIT. 2) THE PATIENT IS NOT TO INCREASE DOSING OR TIMING OF THEIR PAIN MEDICATION WITHOUT SPECIFIC DIRECTION OF THEIR PAIN CENTERPROVIDER (NOT ER OR OTHER PROVIDERS). 3) ALL PAIN MEDS ARE TO BE KEPT SECURED, IN A LOCKED BOX. 4) NO PAIN MEDS ARE TO BE SHARED WITH ANY OTHER PERSON FOR ANY REASON. 5) NO PAIN MEDS MAY BE TAKEN FROM ANY FRIENDS OR RELATIVES FOR ANY REASON 6) NO MEDS OR SUBSTANCES WHICH ARE NOT LEGAL ARE TO BE USED- NO MARIJUANA, NO COCAINE, AMPHETAMINES, HEROIN, OR OTHERS ARE EVER TO BE USED. 7)URINE TESTING IS DONE TO ACCOUNT FOR MEDS AND SUBSTANCES BEING TAKEN AND WILL BE DONE RANDOMLY. , RISKS OF NARCOTIC/OPIOD MEDICATIONS INCLUDES BUT IS NOT LIMITED TO RISK OF DEPENDANCE/DEVELOPMENT OF ADDICTION, MOOD DISTURBANCE AND DEPRESSION, OSTEOPOROSIS, HORMONAL AND LABIDAL CHANGES, RESPIRATORY DEPRESSION AND . PATIENT IS ADVISED NOT TO DRIVE OR DRINK ALCOHOL WHILE ON THESE MEDICATIONS PRINTED AND REVIEWED PRE PROCEDURE WITH PATIENT MOI NOVAK. PROCEDURE CODES FA211 ESTABILISHED PATIENT [facility] CHARGE DISPOSITION & COMMUNICATION FOLLOW UP POSTPROCEDURE (REASON: BILATERAL SACROILIAC JOINT BLOCK ) ELECTRONICALLY SIGNED BY NANCY MUNIZ ON 04/13/2020 AT 10:09 AM EST DISCLAIMER : THIS IS A VISIT SUMMARY EXTRACTED FROM THE [employer] CHART. IT IS NOT A COPY OF THE [employer] PROGRESS NOTE. JAVIER
== END ==
LOC: M PAIN 09:30
PROVIDERS: ATTEND Nurse Practitioner Family
DX: M46.1 Sacroiliitis, not elsewhere classified (principal); I10 Essential (primary) hypertension; J45.909 Unspecified asthma, uncomplicated; E78.5 Hyperlipidemia, unspecified; Z85.3 Personal history of malignant neoplasm of breast; Z85.828 Personal history of other malignant neoplasm of skin; Z87.891 Personal history of nicotine dependence; Z79.899 Other long term (current) drug therapy; Z88.6 Allergy status to analgesic agent; Z91.013 Allergy to seafood

== ENCOUNTER → 2020-04-15 | Outpatient (CLI) | payer BC | LOC: M LABSMTC 08:17 | PROVIDERS: ATTEND Anesthesiology | DX: Z20.822 Contact with and (suspected) exposure to COVID-19 (principal) ==

== ENCOUNTER → 2020-04-20 | Outpatient (CLI) | payer BC ==
[~2020-04-20] MED LIST changes: +BUPIVACAINE HCL 0.25% 30ML VIAL As Ordered ONE; +ISOVUE-M 300 61% 15ML VIAL As Ordered ONE; +LIDOCAINE 1% SDV 30ML VIAL As Ordered ONE; +NORCO, ANEXSIA 5/325MG TABLET (HYDROcodone/ACETAMINOPHEN) As Ordered ONE; +TRIAMCINOLONE ACETONIDE SUSP 40 MG/ML VIAL (J3301) As Ordered ONE; +diazePAM 5MG TABLET As Ordered ONE
--- NOTE | 2020-04-20 11:38 | REP ---
INDICATION: BILAT SIJ. COMPARISON: None. TECHNIQUE: Three C-arm views sacroiliac joints performed. FINDINGS: A needle overlies each sacroiliac joint. IMPRESSION: 25 seconds fluoroscopy time utilized. <Electronically signed by Anthony Rinaldi > 04/20/20 [id number]
--- NOTE | 2020-04-20 23:58 | ECWPNPC ---
PATIENT NAME: RODNEY GOODWIN : 1960 GENDER: FEMALE VISIT DATE: 04/20/2020 DISCHARGE DATE: 04/20/20 1041 VISIT LOCKED DATE TIME: PHYSICIAN: JANE EASON MD PHYSICIAN PAGER NO: ACTIVE RESOURCE: JANE EASON MD REASON FOR APPOINTMENT 1. BILATERAL SACROILIAC JOINT BLOCK HISTORY OF PRESENT ILLNESS GENERAL: -. FALL RISK SCREENING: SCREENING :NO FALLS REPORTED IN THE LAST YEAR PAIN SCREENING: PATIENT HAS A COMPLAINT OF ACUTE OR CHRONIC PAIN :YES LOCATION OF PAIN:MID BACK, LOW BACK INTENSITY OF PAIN (SCALE OF 1 TO 10):10 AVERAGING 8-10/10 WHAT DOES YOUR PAIN FEEL LIKE:ACHING, CONTINOUS, SHARP, TENDER, SORE, OTHER "TAKES MY BREATH AWAY" DURATION:CONTINOUS, CONSTANT, AWAKENS FROM SLEEP ON OCCASSION IT WAKES HER PAIN IS INCREASED BY:ACTIVITIES, PROLONGED STANDING, OTHERS PROLONGED SITTING PAIN IS DECREASED BY: NOTHING PAIN HAS INTERFERED WITH THE FOLLOWING: EVERYTHING NURSING NOTE: -. PAIN CENTER INTAKE QUESTIONS: DO YOU HAVE A HISTORY OF MRSA? :NO DO YOU TAKE A BLOOD THINNERS? :YES MOBIC DO YOU HAVE ANY BLEEDING DISORDERS? :NO ANY NEW NUMBNESS OR WEAKNESS IN YOUR LEGS OR ARMS? :NO ANY PACEMAKER,DEFIBRILLATOR, OR DORSAL COLUMN STIMULATOR? :NO DO YOU HAVE ANY RASHES OR OPEN SORES? :NO ARE YOU ALLERGIC TO IV DYE? :NO ARE YOU DIABETIC? :NO ANY NEW PROBLEMS WITH YOUR MEDICATIONS? :NO HAVE YOU RECEIVED A VACCINE IN THE PAST 30 DAYS? :YES PNEUMONIA VACCINE, TETANUS 04/05 DO YOU PLAN TO RECEIVE A VACCINE IN THE NEXT 21 DAYS? :NO PLANS ON GETTING SHINGLES VACCINE END OF APRIL OR BEGINNING OF MAY DO YOU TAKE ANY IMMUNOSUPPRESSIVE MEDICATIONS? :NO ANY HISTORY OF SEIZURES? :NO ANY HISTORY OF CARDIAC ISSUES OR EVENTS? :NO DO YOU HAVE SLEEP APNEA? :NO ANY RECENT HEAD INJURY? :NO DO YOU HAVE ANY NEW INFECTIONS? :NO IS THERE A CHANCE YOU COULD BE ? :NO ARE YOU BREAST FEEDING? :NO WHEN DID YOU LAST EAT? : -04/19/20 @1800 WHEN DID YOU LAST DRINK? : -04/20/20 @0600 WHAT DID YOU LAST DRINK? : -WATER NAME OF PERSON DRIVING YOU HOME? : ANABEL DO YOU HAVE ANY OTHER QUESTIONS OR CONCERNS? : NONE CURRENT MEDICATIONS TAKING LISINOPRIL 40 40 MG TABLET 1 TAB ORAL ONCE DAILY TAKING TAMOXIFEN CITRATE 10 MG TABLET 1 TABLET ORALLY DAILY TAKING VENTOLIN HFA 108 (90 BASE) MCG/ACT AEROSOL SOLUTION 2 PUFFS INHALATION 4 TIMES A DAY NEEDED TAKING GABAPENTIN 100 MG CAPSULE 1 CAPSULE ORALLY ONCE A DAY, NOTES: TAKES NEEDED TAKING MOBIC 15 MG TABLET 1 TABLET ORALLY ONCE A DAY, NOTES: 04/12 TAKING LASIX 20 MG TABLET 1 TABLET ORALLY ONCE A DAY TAKING AMLODIPINE BESYLATE 10 MG TABLET 1 TABLET ORALLY ONCE A DAY TAKING LIPITOR 40 MG TABLET 1 TABLET ORALLY ONCE A DAY TAKING SYMBICORT 80-4.5 MCG/ACT AEROSOL 2 PUFFS INHALATION PURA TWICE A DAY TAKING HYDROCODONE-ACETAMINOPHEN 5-325 MG TABLET 1 TABLET NEEDED ORALLY Q8H PRN MDD3 TAKING LISINOPRIL 5 MG TABLET 1 TABLET ORALLY ONCE A DAY PAST MEDICAL HISTORY HYPERTENSION ASTHMA HYPERLIPIDEMIA TENOSYNOVITIS PERIMENOPAUSE H/O HSV STRESS TEST DONE BY DR RODRIGUES IN 2015 NORMAL BREAST CA BASAL CELL CARCINOMA 2014 CHRONIC LOW BACK PAIN SPINAL STENOSIS ALLERGIES SHRIMP: HIVES, RASH - ALLERGY ACETAMINOPHEN-CODEINE #3: CHEST PAINS - ALLERGY SURGICAL HISTORY HYSTERECTOMY 1994 CHOLECYSTECTOMY 2009 LASIK 1999 HEART CATHETERIZATION 07/2009 BASAL CELL CA, LOWER L NOSTRIL (EXCISED) FOLLOWED BY DR RICKS IN [place] 10/2013 COLONOSCOPY 201105/15/2011 RIGHT KNEE ARTHOSCOPY 08/2015 LUMPECTOMY-LEFT BREAST 2018 RIGHT KNEE TOTAL REPLACEMENT 12/2018 LAMINECTOMY LUMBAR-UPSTATE 12/2019 COLONOSCOPY 03/2020 SOCIAL HISTORY GENERAL: TOBACCO USE ARE YOU A:FORMER SMOKER HOW LONG HAS IT BEEN SINCE YOU LAST SMOKED?1-5 YEARS QUIT 11/24/2018 MALES, AGE 65-75 WITH 5 PACK SMOKING HISTORY (100 CIGARETTES LIFETIME) FORMER 01/11/2020 SMOKING CESSATION INFORMATION GIVEN01/11/2019 VAPORNO E-CIGARETTENO LATEX QUESTIONNAIRE LATEX ALLERGY : HAVE YOU EVER DEVELOPED ANY TYPE OF REACTION AFTER HANDLING LATEX PRODUCTS SUCH RUBBER GLOVES, CONDOMS, DIAPHRAGMS, BALLOONS, SOCKS, OR UNDERWEAR?NO LATEX ALLERGY : HAVE YOU EVER DEVELOPED ANY TYPE OF REACTION DURING OR AFTER DENTAL APPOINTMENT, VAGINAL/RECTAL EXAMINATION, SURGICAL PROCEDURE, OR ANY OTHER EXPOSURE?NO LATEX RISK : HAVE YOU EVER HAD ANY DIFFICULTY BREATHING OR HIVES AFTER EATING OR HANDLING ANY FRUITS, OR VEGETABLES; SUCH KIWI, BANANAS, STONE FRUITS, OR CHESTNUTSNO LATEX RISK : DO YOU HAVE A PREVIOUS PERSONAL HISTORY OF MORE THAN NINE SURGERIES, SPINA BIFIDA, OR REPEATED CATHERIZATIONS? YES - PLEASE INDICATE : > 9 SURGERIES LATEX RISK : ARE YOU FREQUENTLY EXPOSED TO LATEX PRODUCTS IN YOUR OCCUPATION?YES PT STATES SHE USES LATEX PRODUCTS AT WORK DATE ASKED : 04/19/2020 ALCOHOL USE: NO. LUNG CANCER SCREENING SMOKING STATUS:FORMER SMOKER IS THE PATIENT BETWEEN THE AGE OF 54 AND 76?YES HAVE YOU QUIT SMOKING WITHIN THE PAST 15 YEARS?YES BMI CARE GOAL FOLLOW-UP ABOVE NORMAL BMI FOLLOW-UPDIETARY NEEDS EDUCATION ALCOHOL SCREENING DID YOU HAVE A DRINK CONTAINING ALCOHOL IN THE PAST YEAR?YES HOW OFTEN DID YOU HAVE SIX OR MORE DRINKS ON ONE OCCASION IN THE PAST YEAR?NEVER (0 POINTS) HOW MANY DRINKS DID YOU HAVE ON A TYPICAL DAY WHEN YOU WERE DRINKING IN THE PAST YEAR?1 OR 2 (0 POINTS) HOW OFTEN DID YOU HAVE A DRINK CONTAINING ALCOHOL IN THE PAST YEAR?MONTHLY OR LESS (1 POINT) POINTS1 INTERPRETATIONNEGATIVE RECREATIONAL DRUG USE DRUG USE?NO CAFFEINE 2/DAY. SEXUAL HX HAD SEX IN THE LAST 12 MONTHS (VAGINAL, ORAL, OR ANAL)?YES WITHMEN ONLY USE PROTECTION?NO HAVE YOU EVER HAD AN STD?NO HIV / HEP-C SCREENING HIV TEST OFFERED TO PATIENT:YES DATE OFFERED:01/11/2019 CONSENT SIGNED TEST ACCEPTED:NO HEP-C TEST OFFERED TO PATIENT:YES DATE OFFERED:01/11/2019 REASON:PATIENT DECLINED TEST ACCEPTED:NO CONSENT SIGNED REASON:PATIENT DECLINED BROCHURE PROVIDED TO PATIENTNO -DECLINED ROMAN CATHOLIC NO BAPTISM BELIEFS THAT WOULD IMPACT HEALTH CARE. LANGUAGE SERBIAN. 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 DIET: NO HX EATING DISORDERS. EXERCISE: WALKING AND VERY ACTIVE THROUGH WORK AT [employer]. MARITAL STATUS: . OTHERS AT HOME: LIVES WITH HER 1 CAT, 2 DOGS; BOYFRIEND. - HAS THE PATIENT BEEN EDUCATED REGARDING HIS/HER PLAN OF CARE?YES HAS THE PATIENT BEEN EDUCATED REGARDING PAIN, THE RISK FOR PAIN, THE IMPORTANCE OF EFFECTIVE PAIN MANAGEMENT, AND THE PAIN ASSESSMENT PROCESS?YES ADVANCE DIRECTIVE ADVANCE DIRECTIVE DISCUSSED WITH PATIENT:YES PT DOES NOT HAVE HCP AND DECLINES INFORMATION OR ASSISTANCE WITH FORM TODAY. PAT DONE 06/29/19. HOSPITALIZATION/MAJOR DIAGNOSTIC PROCEDURE SURGERY VITAL SIGNS WT 203.0 LBS, HT 67 IN, BMI 31.79 INDEX, BP 136/79 MM HG, HR 96 /MIN, RR 18 /MIN, TEMP 97.0 F, OXYGEN SAT % 96%, NA INITIALS AW 0819. EXAMINATION GENERAL EXAMINATION: THE PATIENT IS ALERT, ORIENTED TIMES THREE AND COOPERATIVE. LUNGS ARE CLEAR TO AUSCULTATION. HEART SHOWS REGULAR RHYTHM, NO MURMURS AND NO GALLOPS. ASSESSMENTS SACROILIITIS, NOT ELSEWHERE CLASSIFIED - M46.1 (PRIMARY) TREATMENT SACROILIITIS, NOT ELSEWHERE CLASSIFIED [facility] FLUORO GUIDANCE (PAIN)[id number] SALINE LOCKRENATE MARTÍNEZ 04/20/2020 9:34:54 AM > 20G IV ACCESS OBTAINED IN RFA ON SECOND ATTEMPT. PATIENT TOLERATED WELL. MEDICATION: VALIUM TAB 10MG ORALLY (DIAZEPAM)LORE KU 04/20/2020 9:20:00 AM > VERIFIED MAURICIORENATE 04/20/2020 9:32:56 AM > ADMINISTERED COMPLETION OF PROCEDURAL VISIT WHEN MEETS CRITERIAMAURICIORENATE 04/20/2020 10:47:52 AM > CRITERIA MET MED: PAIN NORCO TABLET 5MG/325MG ORALLY HYDROCODONE/ACETAMINOPHENDILEONARDO,MILTON 04/20/2020 09:11:34 AM - GIVE TWO TABLETS LORE KU 04/20/2020 9:20:13 AM > VERIFIED MAURICIORENATE 04/20/2020 9:33:31 AM > ADMINISTERED PROCEDURES PAIN NURSING RECORD PROCEDURE IN ROOM 0955, PHYSICIAN IN ROOM 1009, START 1015, FINISH 1021, PHYSICIAN OUT OF ROOM 1021, OUT OF ROOM 1032, ECG NORMAL SINUS, PATIENT SHIELDED YES, SAFETY STRAP YES, PREP CHLOROPREP BY Nusrat KU RN, DRESSING TEGADERM BY DR EASON LOC: 1. ALERT, ORIENTED RENATE MARTÍNEZ 04/20/2020 10:03:48 AM > RESP: 1. REGULAR, NO DYSPNEA MAURICIORENATE 04/20/2020 10:03:52 AM > COLOR: 1. PINK RENATE MARTÍNEZ 04/20/2020 10:03:57 AM > SKIN: 1. WARM, DRY RENATE MARTÍNEZ 04/20/2020 10:04:02 AM > POSITION: 1. PRONE RENATE MARTÍNEZ 04/20/2020 10:04:20 AM > VITALS: HR 78, 144/77, 97%, R16 RENATE MARTÍNEZ 04/20/2020 10:05:54 AM > HR 80, 149/84, 97%, R1RENATE MARES 04/20/2020 10:15 AM > EXIT VITALS - HR 82, 134/86, 100%, R16 04/20/20 @1040 NOTES Nanda MARTÍNEZ RN COMPLETION OF PROCEDURE APPOINTMENT: POST PAIN 4, DRESSING SITE DRY AND INTACT, IV DISCONTINUED, SITE CLEAR, CATHETER INTACT TBRADLEYRN, GAIT STEADY, TEACHING COMPLETED, PATIENT ACKNOWLEDGES UNDERSTANDING YES, PROCEDURE APPOINTMENT COMPLETED AT 1040 PN SI PRE PROCEDURE DIAGNOSIS SACROILIITIS, SACROILIAC JOINT DYSFUNCTION POST PROCEDURE DIAGNOSIS SACROILIITIS, SACROILIAC JOINT DYSFUNCTION PROCEDURE BILATERAL SACROILIAC JOINT BLOCK SURGEON DR. JANE EASON SHIFT MGR NONE ANESTHESIA LOCAL PRE PROCEDURE NOTE THE PATIENT WITH HISTORY OF CHRONIC LOW BACK PAIN. I EVALUATED THE PATIENT AND REVIEWED THE CHART. I WENT OVER THE RISKS, ALTERNATIVES, AND BENEFITS ASSOCIATED WITH THIS PROCEDURE. THE PATIENT WOULD LIKE TO PROCEED AND GAVE CONSENT TO PERFORM THE PROCEDURE. THE PATIENT DENIES UNEXPLAINABLE WEIGHT LOSS, FEVER, CHILLS, OR NEW CHANGES IN URINARY OR BOWEL CONTROL. PATIENT IS COVID-19 NEGATIVE. DESCRIPTION OF PROCEDURE THE PATIENT WAS BROUGHT TO THE PROCEDURE ROOM AND PLACED IN THE PRONE POSITION. THE LUMBOSACRAL AREA WAS CLEANED WITH CHLORAPREP SOLUTION AND DRAPED ASEPTICALLY. THE PROCEDURE WAS DONE UNDER STERILE CONDITIONS. A TIMEOUT WAS PERFORMED WHERE THE CONSENTED SITE WAS VERIFIED WITH EVERYONE IN THE ROOM. UNDER FLUOROSCOPIC GUIDANCE, THE TARGET POINT WAS SELECTED AT THE LOWER BORDER OF THE RIGHT AND LEFT SACROILIAC JOINT. TARGET POINT WAS SELECTED AFTER MEDIAL ROTATION AND TILT OF THE MAGNIFIER OR THE C-ARM. I CONFIRMED AGAIN THE SITE OF TARGET. LIDOCAINE 0.5% WAS USED TO NUMB THE SKIN AND THE SUBCUTANEOUS TISSUE BELOW IT. SPINAL NEEDLES, 22-GAUGE, WERE ADVANCED UNDER FLUOROSCOPIC GUIDANCE AND FOLLOWING PATIENT FEEDBACK UNTIL THE TARGETS WERE TOUCHED. THE POSITION OF THE NEEDLES WAS VERIFIED WITH AP AND OBLIQUE VIEWS. AFTER PROPER POSITION OF THE NEEDLES WAS ACHIEVED, ISOVUE-M DYE 30%, 0.1 ML, WAS INJECTED SHOWING ADEQUATE SPREAD OF THE DYE. KENALOG 20 MG WAS INJECTED AT EACH SITE. THEN, A SOLUTION OF 3.0 ML OF BUPIVACAINE 0.125% WAS USED TO FLUSH EACH NEEDLE. THE MEDICATIONS WERE VERIFIED WITH THE NURSE. THERE WAS NO EVIDENCE OF BLOOD, PARESTHESIA OR CEREBROSPINAL FLUID DURING THE PROCEDURE. THE PATIENT WAS SENT TO THE RECOVERY ROOM. THE PATIENT WAS MOVING THE EXTREMITIES AND DOING WELL. THERE WERE NO COMPLICATIONS DURING THE PROCEDURE. ESTIMATED BLOOD LOSS WAS LESS THAN 5 ML. FLUOROSCOPIC TIME WAS 24 SECONDS. POST PROCEDURE NOTE THE PROCEDURE DONE WAS DISCUSSED WITH THE PATIENT. THE PATIENT WILL BE SEEN IN A FOLLOW UP IN THE NEXT FEW WEEKS. I AM LOOKING FOR LONG LASTING PAIN RELIEF FOR THE PATIENT WITH THIS INTERVENTION. INSTRUCTIONS WERE GIVEN, QUESTIONS WERE ANSWERED, AND THE PATIENT EXPRESSED UNDERSTANDING AND AGREES WITH THE PLAN. I, MILTON CHAMPION, DOCUMENTED THE ABOVE INFORMATION ACTING A SCRIBE FOR DR. EASON. I HAVE REVIEWED THE ABOVE DOCUMENT, WRITTEN BY MILTON CHAMPION, OVERCOIL STEPPER, AND I VERIFY THAT IT IS ACCURATE PROCEDURE CODES 20038 INJECT SACROILIAC JOINT, MODIFIERS: 50 DISPOSITION & COMMUNICATION FOLLOW UP FOLLOW UP WITH CENTRAL OFFICE FRAME WIRER (REASON: POST BILATERAL SACROILIAC JOINT BLOCK ) ELECTRONICALLY SIGNED BY JANE EASON MD, MD ON 04/20/2020 AT 04:38 PM EST DISCLAIMER : THIS IS A VISIT SUMMARY EXTRACTED FROM THE [employer] CHART. IT IS NOT A COPY OF THE [employer] AS PROGRESS NOTE. JAVIER
== END ==
LOC: M PAIN 08:30
PROVIDERS: ATTEND Anesthesiology
DX: M46.1 Sacroiliitis, not elsewhere classified (principal); J45.909 Unspecified asthma, uncomplicated; Z96.651 Presence of right artificial knee joint; Z87.891 Personal history of nicotine dependence; Z88.5 Allergy status to narcotic agent; Z91.013 Allergy to seafood; Z79.899 Other long term (current) drug therapy
CPT/HCPCS: G0260; J3301; Q9967

== ENCOUNTER → 2020-05-04 | Outpatient (CLI) | payer BC ==
[~2020-05-04] MED LIST changes: -BUPIVACAINE HCL 0.25% 30ML VIAL As Ordered ONE; -ISOVUE-M 300 61% 15ML VIAL As Ordered ONE; -LIDOCAINE 1% SDV 30ML VIAL As Ordered ONE; -NORCO, ANEXSIA 5/325MG TABLET (HYDROcodone/ACETAMINOPHEN) As Ordered ONE; -TRIAMCINOLONE ACETONIDE SUSP 40 MG/ML VIAL (J3301) As Ordered ONE; -diazePAM 5MG TABLET As Ordered ONE
--- NOTE | 2020-05-10 04:18 | ECWPNPC ---
PATIENT NAME: RODNEY GOODWIN : 1960 GENDER: FEMALE VISIT DATE: 05/04/2020 DISCHARGE DATE: 05/04/20 1125 VISIT LOCKED DATE TIME: PHYSICIAN: NAYELI BAJWA PHYSICIAN PAGER NO: ACTIVE RESOURCE: NAYELI BAJWA REASON FOR APPOINTMENT 1. POST BILATERAL SACROILIAC JOINT BLOCK HISTORY OF PRESENT ILLNESS GENERAL: HERE FOR POST PROCEDURE FOLLOW-UP. HAD BILATERAL SACROILIAC JOINT BLOCK ON 04/20/2020. INITIALLY STATES THAT INJECTIONS DIDN'T HELP BUT AFTER DISCUSSION THE SACROILIAC REGION PAIN IS GONE BUT SHE IS DEALING WITH SEVERE UPPER LUMBAR PARASPINAL PAIN. REPORTS PAIN IS AGGRAVATED WITH SITTING. HISTORY OF LUMBAR FUSION IN DECEMBER 2019. CURRENTLY USING HYDROCODONE 5/325 PERIODICALLY AND SPARINGLY FOR SEVERE PAIN EPISODES. SHE IS ANXIOUS THAT SHE IS NOT GETTING BETTER. STATES THAT SHE HAS TO GO BACK TO WORK WHICH REQUIRES STRENUOUS ACTIVITIES. DISCUSSED TREATMENT PLAN.-. FALL RISK SCREENING: SCREENING : NO FALLS REPORTED IN THE LAST YEAR. PAIN SCREENING: PATIENT HAS A COMPLAINT OF ACUTE OR CHRONIC PAIN :YES LOCATION OF PAIN:LOW BACK INTENSITY OF PAIN (SCALE OF 1 TO 10):9 WHAT DOES YOUR PAIN FEEL LIKE:ACHING DURATION:CONTINOUS, CONSTANT, ALL DAY PAIN IS INCREASED BY:ACTIVITIES PAIN IS DECREASED BY:USE OF PAIN MEDICATIONS NURSING NOTE: -. PAIN CENTER INTAKE QUESTIONS: DO YOU HAVE A HISTORY OF MRSA? :NO DO YOU TAKE A BLOOD THINNERS? :NO DO YOU HAVE ANY BLEEDING DISORDERS? :NO ANY NEW NUMBNESS OR WEAKNESS IN YOUR LEGS OR ARMS? :NO ANY PACEMAKER,DEFIBRILLATOR, OR DORSAL COLUMN STIMULATOR? :NO DO YOU HAVE ANY RASHES OR OPEN SORES? :NO ARE YOU ALLERGIC TO IV DYE? :NO ARE YOU DIABETIC? :NO ANY NEW PROBLEMS WITH YOUR MEDICATIONS? :NO HAVE YOU RECEIVED A VACCINE IN THE PAST 30 DAYS? :YES IF SO WHAT VACCINE AND WHEN? TETANUS DO YOU PLAN TO RECEIVE A VACCINE IN THE NEXT 21 DAYS? :YES IF SO WHAT VACCINE AND WHEN? 1ST COVID 05/04/2020 DO YOU NEED ANY PRESCRIPTION? :NO DO YOU TAKE ANY IMMUNOSUPPRESSIVE MEDICATIONS? :NO IS THERE A CHANCE YOU COULD BE ? :NO ARE YOU BREAST FEEDING? :NO CURRENT MEDICATIONS TAKING LISINOPRIL 40 40 MG TABLET 1 TAB ORAL 20MG ONCE DAILY TAKING TAMOXIFEN CITRATE 10 MG TABLET 1 TABLET ORALLY DAILY TAKING VENTOLIN HFA 108 (90 BASE) MCG/ACT AEROSOL SOLUTION 2 PUFFS INHALATION 4 TIMES A DAY NEEDED TAKING GABAPENTIN 100 MG CAPSULE 1 CAPSULE ORALLY ONCE A DAY TAKING MOBIC 15 MG TABLET 1 TABLET ORALLY ONCE A DAY TAKING LASIX 20 MG TABLET 1 TABLET ORALLY ONCE A DAY TAKING AMLODIPINE BESYLATE 10 MG TABLET 1 TABLET ORALLY ONCE A DAY TAKING LIPITOR 40 MG TABLET 1 TABLET ORALLY ONCE A DAY TAKING SYMBICORT 80-4.5 MCG/ACT AEROSOL 2 PUFFS INHALATION PURA TWICE A DAY TAKING HYDROCODONE-ACETAMINOPHEN 5-325 MG TABLET 1 TABLET NEEDED ORALLY Q8H PRN MDD3 TAKING METOPROLOL SUCCINATE 25 MG CAPSULE ER 24 HOUR SPRINKLE 1 CAPSULE ORALLY ONCE A DAY NOT-TAKING LISINOPRIL 5 MG TABLET 1 TABLET ORALLY ONCE A DAY MEDICATION LIST REVIEWED AND RECONCILED WITH THE PATIENT PAST MEDICAL HISTORY HYPERTENSION ASTHMA HYPERLIPIDEMIA TENOSYNOVITIS PERIMENOPAUSE H/O HSV STRESS TEST DONE BY DR RODRIGUES IN 2015 NORMAL BREAST CA BASAL CELL CARCINOMA 2014 CHRONIC LOW BACK PAIN SPINAL STENOSIS ALLERGIES SHRIMP: HIVES, RASH - ALLERGY ACETAMINOPHEN-CODEINE #3: CHEST PAINS - ALLERGY SURGICAL HISTORY HYSTERECTOMY 1994 CHOLECYSTECTOMY 2009 LASIK 1999 HEART CATHETERIZATION 07/2009 BASAL CELL CA, LOWER L NOSTRIL (EXCISED) FOLLOWED BY DR RICKS IN [place] 10/2013 COLONOSCOPY 201105/15/2011 RIGHT KNEE ARTHOSCOPY 08/2015 LUMPECTOMY-LEFT BREAST 2018 RIGHT KNEE TOTAL REPLACEMENT 12/2018 LAMINECTOMY LUMBAR-UPSTATE 12/2019 COLONOSCOPY 03/2020 SOCIAL HISTORY GENERAL: TOBACCO USE ARE YOU A:FORMER SMOKER HOW LONG HAS IT BEEN SINCE YOU LAST SMOKED?1-5 YEARS QUIT 11/24/2018 MALES, AGE 65-75 WITH 5 PACK SMOKING HISTORY (100 CIGARETTES LIFETIME) FORMER 01/11/2020 SMOKING CESSATION INFORMATION GIVEN01/11/2019 VAPORNO E-CIGARETTENO LATEX QUESTIONNAIRE LATEX ALLERGY : HAVE YOU EVER DEVELOPED ANY TYPE OF REACTION AFTER HANDLING LATEX PRODUCTS SUCH RUBBER GLOVES, CONDOMS, DIAPHRAGMS, BALLOONS, SOCKS, OR UNDERWEAR?NO LATEX ALLERGY : HAVE YOU EVER DEVELOPED ANY TYPE OF REACTION DURING OR AFTER DENTAL APPOINTMENT, VAGINAL/RECTAL EXAMINATION, SURGICAL PROCEDURE, OR ANY OTHER EXPOSURE?NO LATEX RISK : HAVE YOU EVER HAD ANY DIFFICULTY BREATHING OR HIVES AFTER EATING OR HANDLING ANY FRUITS, OR VEGETABLES; SUCH KIWI, BANANAS, STONE FRUITS, OR CHESTNUTSNO LATEX RISK : DO YOU HAVE A PREVIOUS PERSONAL HISTORY OF MORE THAN NINE SURGERIES, SPINA BIFIDA, OR REPEATED CATHERIZATIONS? YES - PLEASE INDICATE : > 9 SURGERIES LATEX RISK : ARE YOU FREQUENTLY EXPOSED TO LATEX PRODUCTS IN YOUR OCCUPATION?YES PT STATES SHE USES LATEX PRODUCTS AT WORK DATE ASKED : 05/04/2020 ALCOHOL USE: NO. LUNG CANCER SCREENING SMOKING STATUS:FORMER SMOKER IS THE PATIENT BETWEEN THE AGE OF 54 AND 76?YES HAVE YOU QUIT SMOKING WITHIN THE PAST 15 YEARS?YES BMI CARE GOAL FOLLOW-UP ABOVE NORMAL BMI FOLLOW-UPDIETARY NEEDS EDUCATION ALCOHOL SCREENING DID YOU HAVE A DRINK CONTAINING ALCOHOL IN THE PAST YEAR?YES HOW OFTEN DID YOU HAVE SIX OR MORE DRINKS ON ONE OCCASION IN THE PAST YEAR?NEVER (0 POINTS) HOW MANY DRINKS DID YOU HAVE ON A TYPICAL DAY WHEN YOU WERE DRINKING IN THE PAST YEAR?1 OR 2 (0 POINTS) HOW OFTEN DID YOU HAVE A DRINK CONTAINING ALCOHOL IN THE PAST YEAR?MONTHLY OR LESS (1 POINT) POINTS1 INTERPRETATIONNEGATIVE RECREATIONAL DRUG USE DRUG USE?NO CAFFEINE 2/DAY. SEXUAL HX HAD SEX IN THE LAST 12 MONTHS (VAGINAL, ORAL, OR ANAL)?YES WITHMEN ONLY USE PROTECTION?NO HAVE YOU EVER HAD AN STD?NO HIV / HEP-C SCREENING HIV TEST OFFERED TO PATIENT:YES DATE OFFERED:01/11/2019 CONSENT SIGNED TEST ACCEPTED:NO HEP-C TEST OFFERED TO PATIENT:YES DATE OFFERED:01/11/2019 REASON:PATIENT DECLINED TEST ACCEPTED:NO CONSENT SIGNED REASON:PATIENT DECLINED BROCHURE PROVIDED TO PATIENTNO -DECLINED HOLINESS NO VOODOO BELIEFS THAT WOULD IMPACT HEALTH CARE. LANGUAGE KYRGYZ. 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 DIET: NO HX EATING DISORDERS. EXERCISE: WALKING AND VERY ACTIVE THROUGH WORK AT [employer]. MARITAL STATUS: . OTHERS AT HOME: LIVES WITH HER 1 CAT, 2 DOGS; BOYFRIEND. - HAS THE PATIENT BEEN EDUCATED REGARDING HIS/HER PLAN OF CARE?YES HAS THE PATIENT BEEN EDUCATED REGARDING PAIN, THE RISK FOR PAIN, THE IMPORTANCE OF EFFECTIVE PAIN MANAGEMENT, AND THE PAIN ASSESSMENT PROCESS?YES ADVANCE DIRECTIVE ADVANCE DIRECTIVE DISCUSSED WITH PATIENT:YES PT DOES NOT HAVE HCP AND DECLINES INFORMATION OR ASSISTANCE WITH FORM TODAY. PAT DONE 06/29/19. HOSPITALIZATION/MAJOR DIAGNOSTIC PROCEDURE SURGERY CHEST PAIN REVIEW OF SYSTEMS CONSTITUTIONAL: ANY RECENT FEVER NO . CHILLS NO . WEIGHT CHANGE OF UNKNOWN REASONS NO . GASTROENTEROLOGY: NEW UNEXPLAINABLE CHANGES IN BOWEL CONTROL NO . CONSTIPATION NO . GENITOURINARY: ANY NEW CHANGE IN BLADDER CONTROL? NO . NEUROLOGY: NEW ONSET DIZZINESS OR NEUROLOGICAL CHANGES NOT MENTIONED NO . NEW NUMBNESS OR PAIN PATTERNS NOT MENTIONED AND PERTINENT TO TODAY'S VISIT NO . CARDIOLOGY: NEW CHEST PRESSURE NO . PATIENT DENIES NO . RESPIRATORY: UNEXPLAINABLE COUGH NO . NEW SHORTNESS OF BREATH NO . VITAL SIGNS WT 186 LBS, HT 67 IN, BMI 29.13 INDEX, BP 141/91 MM HG, HR 96 /MIN, RR 18 /MIN, TEMP 97.6 F, OXYGEN SAT % 96, SAFE IN ENV? (Y/N) YEST.JASE NOVAK. EXAMINATION GENERAL EXAMINATION: GENERALNO ACUTE DISTRESS, WELL NOURISHED AND HYDRATED. PSYCHAPPROPRIATE MOOD AND AFFECT . LUNGS:CLEAR TO AUSCULTATION BILATERALLY, NO WHEEZES, RHONCHI, RALES. HEART:NO MURMURS, REGULAR RATE AND RHYTHM. MUSCULOSKELETAL: TRIGGER POINTS: NOTED OVER LOW BACK REGION LEFT GREATER THAN RIGHT. PAIN IS AGGRAVATED IN THIS REGION WITH RANGE OF JOINT MOTION OF THE SPINE.. ASSESSMENTS OTHER CHRONIC PAIN - G89.29 (PRIMARY) MYALGIA, OTHER SITE - M79.18 TREATMENT OTHER CHRONIC PAIN REFILL HYDROCODONE-ACETAMINOPHEN TABLET, 5-325 MG, 1 TABLET NEEDED, ORALLY, Q8H PRN MDD3, 30 DAYS, 90, REFILLS 0 PAIN PROCEDURE LOGDATE OF PROCEDURE1PROCEDURE:BILATERAL SACROILIAC JOINT BLOCKAMOUNT OF PRE SEDATEVALIUM 10MG, NORCO 5/325MGRESULT:IMPROVEMENT IN SACROILIAC JOINT PAIN. INCREASE IN BILATERAL LOWER THORACIC UPPER LUMBAR PARASPINAL PAIN LEFT GREATER THAN RIGHT MEDICATION: VALIUM TAB 10MG ORALLY (DIAZEPAM) (ORDERED FOR 05/11/2020) MED: PAIN NORCO TABLET 5MG/325MG ORALLY HYDROCODONE/ACETAMINOPHEN (ORDERED FOR 05/11/2020) NOTES: TRIGGER POINT INJECTIONS BILATERAL LOW BACK, BILATERAL THORACIC , ISTOP REGISTRY REVIEWED AND DEMONSTRATES COMPLLIANCE. BRINGS IN MEDICATIONS WHICH IS APPROPRIATE FOR WHAT WAS DISPENSED. RECENT URINE TOXICOLOGY REVIEWED. NO UNAUTHORIZED MEDICATIONS. NO ILLICIT SUBSTANCES AND PRESCRIBED MEDICATIONS WERE PRESENT. , RISKS OF NARCOTIC/OPIOD MEDICATIONS INCLUDES BUT IS NOT LIMITED TO RISK OF DEPENDANCE/DEVELOPMENT OF ADDICTION, MOOD DISTURBANCE AND DEPRESSION, OSTEOPOROSIS, HORMONAL AND LABIDAL CHANGES, RESPIRATORY DEPRESSION AND . PATIENT IS ADVISED NOT TO DRIVE OR DRINK ALCOHOL WHILE ON THESE MEDICATIONS PRINTED AND REVIEWED PRE PROCEDURE WITH PATIENT MOI NOVAK. REFERRAL TO:PHYSICAL THERAPIST REASON:2XWK X 6 WKS,BACK REHABILITATION,MYOFASCIAL RELEASE,MASSAGE PROCEDURE CODES [id number] ESTABILISHED PATIENT [facility] CHARGE DISPOSITION & COMMUNICATION FOLLOW UP PT WILL CALL TO SCHEDULE/MED HOLD/COVID VACCINE (REASON: TRIGGER POINT INJECTIONS BILATERAL LOW BACK, BILATERAL THORACIC) ELECTRONICALLY SIGNED BY NANCY MUNIZ ON 05/09/2020 AT 01:01 PM EDT DISCLAIMER : THIS IS A VISIT SUMMARY EXTRACTED FROM THE [employer] CHART. IT IS NOT A COPY OF THE [employer] PROGRESS NOTE. JAVIER
== END ==
LOC: M PAIN 10:30
PROVIDERS: ATTEND Nurse Practitioner Family
DX: G89.29 Other chronic pain (principal); M79.18 Myalgia, other site; J45.909 Unspecified asthma, uncomplicated; Z96.651 Presence of right artificial knee joint; Z87.891 Personal history of nicotine dependence; Z88.5 Allergy status to narcotic agent; Z91.013 Allergy to seafood; Z79.899 Other long term (current) drug therapy

== ENCOUNTER → 2020-06-01 | Outpatient (REF) | payer BC | LOC: M SFHCCAPE 16:41 | PROVIDERS: ATTEND Physician Assistant | DX: J02.9 Acute pharyngitis, unspecified (principal) ==

== ENCOUNTER → 2020-06-14 | Outpatient (CLI) | payer BC | LOC: M LABSMTC 09:57 | PROVIDERS: ATTEND Anesthesiology | DX: Z01.818 Encounter for other preprocedural examination (principal); Z11.52 Encounter for screening for COVID-19 ==

== ENCOUNTER → 2020-06-19 | Outpatient (CLI) | payer BC ==
[~2020-06-19] MED LIST changes: +BUPIVACAINE HCL 0.25% 10ML VIAL As Ordered ONE; +BUPIVACAINE HCL 0.25% 30ML VIAL As Ordered ONE; +NORCO, ANEXSIA 5/325MG TABLET (HYDROcodone/ACETAMINOPHEN) As Ordered ONE; +TRIAMCINOLONE ACETONIDE SUSP 40 MG/ML VIAL (J3301) As Ordered ONE; +diazePAM 5MG TABLET As Ordered ONE
--- NOTE | 2020-06-21 03:50 | ECWPNPC ---
PATIENT NAME: RODNEY GOODWIN : 1960 GENDER: FEMALE VISIT DATE: 06/19/2020 DISCHARGE DATE: 06/19/20 101 VISIT LOCKED DATE TIME: PHYSICIAN: JANE EASON MD PHYSICIAN PAGER NO: ACTIVE RESOURCE: JANE EASON MD REASON FOR APPOINTMENT 1. TRIGGER POINT INJECTIONS BILATERAL LOW BACK, BILATERAL THORACIC HISTORY OF PRESENT ILLNESS GENERAL: -. FALL RISK SCREENING: SCREENING : NO FALLS REPORTED IN THE LAST YEAR. PAIN SCREENING: PATIENT HAS A COMPLAINT OF ACUTE OR CHRONIC PAIN :YES LOCATION OF PAIN:MID BACK, LOW BACK INTENSITY OF PAIN (SCALE OF 1 TO 10):10 AVERAGING 8-10/10 WHAT DOES YOUR PAIN FEEL LIKE:ACHING, CONTINOUS, SHARP, TENDER, SORE, OTHER VARIES IN INTENSITY AND SEVERITY, "IT HAS A MIND OF ITS OWN" "POKES, SORE, ETC" DURATION:CONTINOUS, CONSTANT, AWAKENS FROM SLEEP ON OCCASSION IT WAKES HER, LEFT WORSE THAN RIGHT, RIGHT FEELS "POKING" PAIN IS INCREASED BY:ACTIVITIES, PROLONGED STANDING, OTHERS PROLONGED SITTING PAIN IS DECREASED BY: NOTHING PAIN HAS INTERFERED WITH THE FOLLOWING: EVERYTHING PLAN/GOALS/TREATMENT/INTERVENTION/FOLLOW UP:SEE PLAN NURSING NOTE: -. PAIN CENTER INTAKE QUESTIONS: DO YOU HAVE A HISTORY OF MRSA? :NO DO YOU TAKE A BLOOD THINNERS? :NO DO YOU HAVE ANY BLEEDING DISORDERS? :NO ANY NEW NUMBNESS OR WEAKNESS IN YOUR LEGS OR ARMS? :NO ANY PACEMAKER,DEFIBRILLATOR, OR DORSAL COLUMN STIMULATOR? :NO DO YOU HAVE ANY RASHES OR OPEN SORES? :NO ARE YOU ALLERGIC TO IV DYE? :NO ARE YOU DIABETIC? :NO ANY NEW PROBLEMS WITH YOUR MEDICATIONS? :NO HAVE YOU RECEIVED A VACCINE IN THE PAST 30 DAYS? :YES COVID VACCINE 2ND 06/06. DO YOU PLAN TO RECEIVE A VACCINE IN THE NEXT 21 DAYS? :NO DO YOU TAKE ANY IMMUNOSUPPRESSIVE MEDICATIONS? :NO ANY HISTORY OF SEIZURES? :NO ANY HISTORY OF CARDIAC ISSUES OR EVENTS? :NO DO YOU HAVE SLEEP APNEA? :NO ANY RECENT HEAD INJURY? :NO DO YOU HAVE ANY NEW INFECTIONS? :NO IS THERE A CHANCE YOU COULD BE ? :NO ARE YOU BREAST FEEDING? :NO WHEN DID YOU LAST EAT? : 06/18/20 1800 WHEN DID YOU LAST DRINK? : 06/19/20 0600 WHAT DID YOU LAST DRINK? : WATER NAME OF PERSON DRIVING YOU HOME? : ANABEL DO YOU HAVE ANY OTHER QUESTIONS OR CONCERNS? : NONE CURRENT MEDICATIONS TAKING TAMOXIFEN CITRATE 10 MG TABLET 1 TABLET ORALLY DAILY TAKING VENTOLIN HFA 108 (90 BASE) MCG/ACT AEROSOL SOLUTION 2 PUFFS INHALATION 4 TIMES A DAY NEEDED TAKING GABAPENTIN 100 MG CAPSULE 1 CAPSULE ORALLY ONCE A DAY, NOTES: 06/18 1399 TAKING MOBIC 15 MG TABLET 1 TABLET ORALLY ONCE A DAY, NOTES: 06/18 1399 TAKING LASIX 20 MG TABLET 1 TABLET ORALLY ONCE A DAY, NOTES: 06/18 1399 TAKING AMLODIPINE BESYLATE 10 MG TABLET 1 TABLET ORALLY ONCE A DAY, NOTES: 06/18 1399 TAKING LIPITOR 40 MG TABLET 1 TABLET ORALLY ONCE A DAY, NOTES: 06/18 1399 TAKING SYMBICORT 80-4.5 MCG/ACT AEROSOL 2 PUFFS INHALATION PURA TWICE A DAY TAKING HYDROCODONE-ACETAMINOPHEN 5-325 MG TABLET 1 TABLET NEEDED ORALLY Q8H PRN MDD3, NOTES: 06/18 1399 TAKING METOPROLOL SUCCINATE ER 25 MG TABLET EXTENDED RELEASE 24 HOUR 1 TABLET ORALLY ONCE A DAY, NOTES: 06/18 1399 TAKING LORATADINE 10 MG TABLET 1 TABLET ORALLY ONCE A DAY TAKING LISINOPRIL 20 MG TABLET 1 TABLET ORALLY ONCE A DAY, NOTES: 06/18 1399 NOT-TAKING LISINOPRIL 5 MG TABLET 1 TABLET ORALLY ONCE A DAY NOT-TAKING AMOXICILLIN-POT CLAVULANATE 875-125 MG TABLET 1 TABLET ORALLY EVERY 12 HRS MEDICATION LIST REVIEWED AND RECONCILED WITH THE PATIENT PAST MEDICAL HISTORY HYPERTENSION ASTHMA HYPERLIPIDEMIA TENOSYNOVITIS PERIMENOPAUSE H/O HSV STRESS TEST DONE BY DR RODRIGUES IN 2016 NORMAL BREAST CA BASAL CELL CARCINOMA 2014 CHRONIC LOW BACK PAIN SPINAL STENOSIS ALLERGIES SHRIMP: HIVES, RASH - ALLERGY ACETAMINOPHEN-CODEINE #3: CHEST PAINS - ALLERGY SOCIAL HISTORY GENERAL: TOBACCO USE ARE YOU A:FORMER SMOKER HOW LONG HAS IT BEEN SINCE YOU LAST SMOKED?1-5 YEARS QUIT 11/24/2018 VAPORNO E-CIGARETTENO SMOKING CESSATION INFORMATION GIVEN01/11/2019 MALES, AGE 65-75 WITH 5 PACK SMOKING HISTORY (100 CIGARETTES LIFETIME) FORMER 01/11/2020 LATEX QUESTIONNAIRE LATEX ALLERGY : HAVE YOU EVER DEVELOPED ANY TYPE OF REACTION AFTER HANDLING LATEX PRODUCTS SUCH RUBBER GLOVES, CONDOMS, DIAPHRAGMS, BALLOONS, SOCKS, OR UNDERWEAR?NO LATEX ALLERGY : HAVE YOU EVER DEVELOPED ANY TYPE OF REACTION DURING OR AFTER DENTAL APPOINTMENT, VAGINAL/RECTAL EXAMINATION, SURGICAL PROCEDURE, OR ANY OTHER EXPOSURE?NO LATEX RISK : HAVE YOU EVER HAD ANY DIFFICULTY BREATHING OR HIVES AFTER EATING OR HANDLING ANY FRUITS, OR VEGETABLES; SUCH KIWI, BANANAS, STONE FRUITS, OR CHESTNUTSNO LATEX RISK : DO YOU HAVE A PREVIOUS PERSONAL HISTORY OF MORE THAN NINE SURGERIES, SPINA BIFIDA, OR REPEATED CATHERIZATIONS? YES - PLEASE INDICATE : > 9 SURGERIES LATEX RISK : ARE YOU FREQUENTLY EXPOSED TO LATEX PRODUCTS IN YOUR OCCUPATION?YES PT STATES SHE USES LATEX PRODUCTS AT WORK DATE ASKED : 06/16/2020 ALCOHOL USE: NO. LUNG CANCER SCREENING SMOKING STATUS:FORMER SMOKER IS THE PATIENT BETWEEN THE AGE OF 54 AND 76?YES HAVE YOU QUIT SMOKING WITHIN THE PAST 15 YEARS?YES BMI CARE GOAL FOLLOW-UP ABOVE NORMAL BMI FOLLOW-UPDIETARY NEEDS EDUCATION ALCOHOL SCREENING DID YOU HAVE A DRINK CONTAINING ALCOHOL IN THE PAST YEAR?YES HOW OFTEN DID YOU HAVE SIX OR MORE DRINKS ON ONE OCCASION IN THE PAST YEAR?NEVER (0 POINTS) HOW MANY DRINKS DID YOU HAVE ON A TYPICAL DAY WHEN YOU WERE DRINKING IN THE PAST YEAR?1 OR 2 (0 POINTS) HOW OFTEN DID YOU HAVE A DRINK CONTAINING ALCOHOL IN THE PAST YEAR?MONTHLY OR LESS (1 POINT) POINTS1 INTERPRETATIONNEGATIVE RECREATIONAL DRUG USE DRUG USE?NO CAFFEINE 2/DAY. SEXUAL HX HAD SEX IN THE LAST 12 MONTHS (VAGINAL, ORAL, OR ANAL)?YES WITHMEN ONLY USE PROTECTION?NO HAVE YOU EVER HAD AN STD?NO HIV / HEP-C SCREENING HIV TEST OFFERED TO PATIENT:YES DATE OFFERED:01/11/2019 CONSENT SIGNED TEST ACCEPTED:NO HEP-C TEST OFFERED TO PATIENT:YES DATE OFFERED:01/11/2019 REASON:PATIENT DECLINED TEST ACCEPTED:NO CONSENT SIGNED REASON:PATIENT DECLINED BROCHURE PROVIDED TO PATIENTNO -DECLINED SIKHISM NO BUDDHIST BELIEFS THAT WOULD IMPACT HEALTH CARE. LANGUAGE LITHUANIAN. 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 DIET: NO HX EATING DISORDERS. EXERCISE: WALKING AND VERY ACTIVE THROUGH WORK AT [employer]. MARITAL STATUS: . OTHERS AT HOME: LIVES WITH HER 1 CAT, 2 DOGS; BOYFRIEND. - HAS THE PATIENT BEEN EDUCATED REGARDING HIS/HER PLAN OF CARE?YES HAS THE PATIENT BEEN EDUCATED REGARDING PAIN, THE RISK FOR PAIN, THE IMPORTANCE OF EFFECTIVE PAIN MANAGEMENT, AND THE PAIN ASSESSMENT PROCESS?YES ADVANCE DIRECTIVE ADVANCE DIRECTIVE DISCUSSED WITH PATIENT:YES PT DOES NOT HAVE HCP AND DECLINES INFORMATION OR ASSISTANCE WITH FORM TODAY. PAT DONE 06/29/19. VITAL SIGNS WT 202.0 LBS, HT 67 IN, BMI 31.63 INDEX, BP 154/90 MM HG, HR 89 /MIN, RR 18 /MIN, TEMP 98.1 F, OXYGEN SAT % 97% RA, BLOOD GLUCOSE LEVEL N/A, SAFE IN ENV? (Y/N) YES, [place]S [place] [address], REVIEWED BY: Evie ARROYO SPORTS COMMENTATOR. EXAMINATION GENERAL: A HISTORY AND PHYSICAL EXAM ON THE PATIENT WAS DONE ON 05/04/2020 (DATE OF ORIGINAL ASSESSMENT) IN PREPARATION OF SURGERY/PROCEDURE. I HAVE NOW REASSESSED THIS PATIENT'S HEALTH STATUS AND PERFORMED AN UPDATED EXAM TODAY. ALL CHANGES IN THE PATIENT'S HISTORY, PHYSICAL EXAM, PRE-EXISTING CONDITONS, AND INDICATIONS/CONTRAINDICATIONS TO THE PLANNED PROCEDURE AND ANESTHESIA ARE DOCUMENTED AND EVALUATED BELOW. I ATTEST TO THE ADEQUACY AND APPROPRIATENESS OF MY ASSESSMENT, AND CONFIRM THE NECESSITY FOR THE PLANNED PROCEDURE. THE PATIENT IS ALERT, ORIENTED TIMES THREE AND COOPERATIVE. LUNGS ARE CLEAR TO AUSCULTATION. HEART SHOWS REGULAR RHYTHM, NO MURMURS AND NO GALLOPS. ASSESSMENTS MYALGIA - M79.10 TREATMENT MYALGIA COMPLETION OF PROCEDURAL VISIT WHEN MEETS CRITERIA OTHERS NOTES: 06/16/20 1110 PAT COMPLETED, PATIENT REMINDED OF NPO CRITERIA FOR SOLID FOODS SIX HOURS BEFORE PROCEDURE AND CONTINUATION OF CLEAR FLUIDS UP UNTIL UP TO TWO HOURS BEFORE PROCEDURE. PATIENT VERBALIZED UNDERSTANDING. Evie ARROYO RN BSN . PROCEDURES PAIN NURSING RECORD PROCEDURE IN ROOM 0834 UPON ARRIVAL TO CLINIC, PHYSICIAN IN ROOM 0951, START 0955, FINISH 0958, PHYSICIAN OUT OF ROOM 0959, OUT OF ROOM 1012, ECG N/A, PATIENT SHIELDED N/A, SAFETY STRAP N/A, PREP ALCOHOL DR. EASON, DRESSING TEGADERM Evie ARROYO RN LOC: PAUL ARROYO 06/19/2020 9:00:24 AM > 1. ALERT, ORIENTED LOC REMAINED AT BASELINE THROUGHOUT THE PROCEDURE RESP: PAUL ARROYO 06/19/2020 9:00:24 AM > 1. REGULAR, NO DYSPNEA COLOR: PAUL ARROYO 06/19/2020 9:00:24 AM > 1. PINK SKIN: PAUL ARROYO 06/19/2020 9:00:24 AM > 1. WARM, DRY POSITION: PAUL ARROYO 06/19/2020 9:00:24 AM > 5. SITTING VITALS: PAUL ARROYO 06/19/2020 10:05:37 AM > POST PROCEDURE 122/64, 85, 98% RA, 18. COMPLETION OF PROCEDURE APPOINTMENT: POST PAIN 03/05 "SORE" AT INJECTION SITES., DRESSING SITE DRY AND INTACT, IV N/A, GAIT STEADY, TEACHING COMPLETED, PATIENT ACKNOWLEDGES UNDERSTANDING YES PATIENT PROVIDED POST PROCEDURE PAIN DIARY, COVID SYMPTOM MONITORING INSTRUCTIONS AND POST PROCEDURE INSTRUCTIONS, HANDOUTS REVIEWED WITH PATIENT; PATIENT VERBALIZES UNDERSTANDING, NO QUESTIONS OR CONCERNS AT THIS TIME., PROCEDURE APPOINTMENT COMPLETED AT 1012 BY: Evie ARROYO RN PN TRIGGER POINT INJECTION WITH STEROIDS PRE PROCEDURE DIAGNOSIS 1. MYALGIA 2. PAIN AT BILATERAL LOW BACK AREA AND BILATERAL THORACIC AREA POST PROCEDURE DIAGNOSIS 1. MYALGIA 2. PAIN AT BILATERAL LOW BACK AREA AND BILATERAL THORACIC AREA PROCEDURE TRIGGER POINT INJECTION AT BILATERAL LOW BACK AREA AND BILATERAL THORACIC AREA SURGEON DR. JANE EASON MOLD CONSTRUCTION SUPERVISOR NONE ANESTHESIA LOCAL PRE PROCEDURE NOTE THE PATIENT HAS A HISTORY OF CHRONIC PAIN AT THE RIGHT AND LEFT LOW BACK AREA AND RIGHT AND LEFT THORACIC AREA. I EVALUATED THE PATIENT AND REVIEWED THE CHART. THERE IS EVIDENCE OF BANDS OF TISSUE WITH RESTRICTION OF MOVEMENT AND PRESENCE OF TRIGGER POINT AT THE RIGHT AND LEFT LOW BACK AREA AND RIGHT AND LEFT THORACIC AREA. I WENT OVER THE RISKS, ALTERNATIVES, AND BENEFITS ASSOCIATED WITH THIS PROCEDURE. THE PATIENT WOULD LIKE TO PROCEED AND GIVE CONSENT TO PERFORMED THE PROCEDURE. THE PATIENT DENIES UNEXPLAINABLE WEIGHT LOSS, FEVER, CHILLS, OR NEW CHANGES IN URINARY OR BOWEL CONTROL. THE PATIENT IS COVID-19 NEGATIVE DESCRIPTION OF PROCEDURE THE PATIENT WAS BROUGHT TO THE PROCEDURE ROOM AND PLACED IN THE SITTING POSITION. THE AREA WAS CLEANED WITH ALCOHOL. THE PROCEDURE WAS DONE USING ASEPTIC STERILE TECHNIQUE. A TIMEOUT WAS PERFORMED WHERE THE CONSENTED SITE WAS VERIFIED WITH EVERYONE IN THE ROOM. USING A 25-GAUGE NEEDLE, TRIGGER POINTS WERE INJECTED AT THE RIGHT AND LEFT LOW BACK AREA AND RIGHT AND LEFT THORACIC AREA WITH A TOTAL OF 40 ML OF BUPIVACAINE 0.25% AND KENALOG 40 MG. THE MEDICATIONS WERE VERIFIED WITH THE NURSE. THERE WAS NO EVIDENCE OF BLOOD OR PARESTHESIA DURING THE PROCEDURE. THE PATIENT WAS SENT TO THE RECOVERY ROOM. THE PATIENT WAS MOVING THE EXTREMITIES AND DOING WELL. THERE WERE NO COMPLICATIONS DURING THE PROCEDURE. ESTIMATED BLOOD LOSS WAS LESS THAN 5 ML POST PROCEDURE NOTE I AM LOOKING FOR LONG LASTING PAIN RELIEF. IF THE PAIN PERSITS, CONSIDER LUMBAR FACET BLOCKS. THE PROCEDURE DONE WAS DISCUSSED WITH THE PATIENT. THE PATIENT WILL BE SEEN IN A FOLLOW UP IN THE NEXT FEW WEEKS. INSTRUCTIONS WERE GIVEN, QUESTIONS WERE ANSWERED, AND THE PATIENT EXPRESSED UNDERSTANDING AND AGREES WITH THE PLAN. I, MILTON CHAMPION, DOCUMENTED THE ABOVE INFORMATION ACTING A SCRIBE FOR DR. EASON. I HAVE REVIEWED THE ABOVE DOCUMENT, WRITTEN BY MILTON CHAMPION, LICENSED EMBALMER, AND I VERIFY THAT IT IS ACCURATE PROCEDURE CODES 01726 INJECT TRIGGER POINTS 3/> DISPOSITION & COMMUNICATION FOLLOW UP FOLLOW UP WITH ACCOUNTS RECEIVABLE SPECIALIST (REASON: POST TRIGGER POINT INJECTIONS BILATERAL LOW BACK AND BILATERAL THORACIC) ELECTRONICALLY SIGNED BY JANE EASON MD, MD ON 06/20/2020 AT 12:23 PM EDT DISCLAIMER : THIS IS A VISIT SUMMARY EXTRACTED FROM THE [facility] CHART. IT IS NOT A COPY OF THE [facility] PROGRESS NOTE. JAVIER
== END ==
LOC: M PAIN 08:30
PROVIDERS: ATTEND Anesthesiology
DX: M79.18 Myalgia, other site (principal); J45.909 Unspecified asthma, uncomplicated; Z85.3 Personal history of malignant neoplasm of breast; Z87.891 Personal history of nicotine dependence; Z88.5 Allergy status to narcotic agent; Z91.013 Allergy to seafood; Z79.899 Other long term (current) drug therapy
CPT/HCPCS: 20553; J3301

== ENCOUNTER → 2020-07-06 | Outpatient (REF) | payer BC ==
[~2020-07-06] MED LIST changes: -BUPIVACAINE HCL 0.25% 10ML VIAL As Ordered ONE; -BUPIVACAINE HCL 0.25% 30ML VIAL As Ordered ONE; -NORCO, ANEXSIA 5/325MG TABLET (HYDROcodone/ACETAMINOPHEN) As Ordered ONE; -TRIAMCINOLONE ACETONIDE SUSP 40 MG/ML VIAL (J3301) As Ordered ONE; -diazePAM 5MG TABLET As Ordered ONE
[2020-07-06 16:19] LABS: BASO % 0.6 % (0.0-1.0); EOS # 0.2 10^3/uL (0.0-0.5); EOS % 2.1 % (0.0-3.0); HEMATOCRIT 42.4 % (36.0-47.0); LYMPH # 1.7 10^3/uL (1.5-5.0); LYMPH % 23.7 % (24.0-44.0); MEAN CORPUSCULAR HEMOGLOBIN 32.1 pg (27.0-33.0); MEAN CORPUSCULAR VOLUME 97.2 fl (80.0-96.0); MONO # 0.5 10^3/uL (0.0-0.8); MONO % 6.5 % (2.0-8.0); NEUTROPHILS # 4.7 10^3/uL (1.5-8.5); PLATELET COUNT, AUTOMATED 274 10^3/uL (150-450); RED BLOOD COUNT 4.36 10^6/uL (4.00-5.40); WHITE BLOOD COUNT 7.1 10^3/uL (4.0-10.0)
[2020-07-06 16:56] LABS: ALBUMIN 3.5 GM/DL (3.2-5.2); ALT/SGPT 25 U/L (12-78); BLOOD UREA NITROGEN 15 MG/DL (7-18); CALCIUM LEVEL 8.8 MG/DL (8.8-10.2); CARBON DIOXIDE LEVEL 27 MEQ/L (21-32); CHLORIDE LEVEL 109 MEQ/L (98-107); CHOLESTEROL LEVEL 152 MG/DL (<200); CHOLESTEROL RISK RATIO 2.533 (<5); CREATININE FOR GFR 0.68 MG/DL (0.55-1.30); GLOMERULAR FILTRATION RATE > 60.0 (>45); GLUCOSE, FASTING 78 MG/DL (70-100); HDL CHOLESTEROL 60 MG/DL (>40); LDL CHOLESTEROL 73 MG/DL (<100); NON-HDL-C 92 MG/DL; POTASSIUM SERUM 4.4 MEQ/L (3.5-5.1); SODIUM LEVEL 142 MEQ/L (136-145); TOTAL 25(OH) VITAMIN D 22.2 NG/ML (30.0-100.0); TOTAL PROTEIN 6.4 GM/DL (6.4-8.2); TRIGLYCERIDES LEVEL 94 MG/DL (<150)
== END ==
LOC: M SFHCCAPE 08:33
PROVIDERS: ATTEND Physician Assistant
DX: E78.5 Hyperlipidemia, unspecified (principal); I10 Essential (primary) hypertension; E66.9 Obesity, unspecified; Z68.32 Body mass index [BMI] 32.0-32.9, adult

== ENCOUNTER → 2020-07-10 | Outpatient (CLI) | payer BC ==
--- NOTE | 2020-07-13 05:37 | ECWPNPC ---
PATIENT NAME: RODNEY GOODWIN : 1960 GENDER: FEMALE VISIT DATE: 07/10/2020 DISCHARGE DATE: 07/10/20 1012 VISIT LOCKED DATE TIME: PHYSICIAN: NAYELI BAJWA PHYSICIAN PAGER NO: ACTIVE RESOURCE: NAYELI BAJWA REASON FOR APPOINTMENT 1. POST TRIGGER POINT INJECTIONS BILATERAL LOW BACK, BILATERAL THORACIC HISTORY OF PRESENT ILLNESS DEPRESSION SCREENING: PHQ-2 (2015 EDITION) LITTLE INTEREST OR PLEASURE IN DOING THINGS?NOT AT ALL FEELING DOWN, DEPRESSED, OR HOPELESS?NOT AT ALL TOTAL SCORE0 GENERAL: HERE FOR POST PROCEDURE F/U.HAD TPI BILATRERAL LUMBAR ON 06/19/2020.REPORTING IMPROVEMENT IN PAIN SOME OF WHICH CONTINUES TODAY.CONTINUES WITH PT EXCERSISES AT HOME.HISTORY OF LUMBAR SURGERY.DISCUSSED TREATMENT PLAN.USING HYDROCODONE 5/325/PRN FOR SEVERE PAIN EPISODES AND INFREQUENTLY. -. FALL RISK SCREENING: SCREENING : NO FALLS REPORTED IN THE LAST YEAR, TRIP OVER A DOG AND ICE, NO INJURIES , DID NOT GO TO THE ER. PAIN SCREENING: PATIENT HAS A COMPLAINT OF ACUTE OR CHRONIC PAIN :YES LOCATION OF PAIN:MID BACK, LOW BACK INTENSITY OF PAIN (SCALE OF 1 TO 10):8 WHAT DOES YOUR PAIN FEEL LIKE:ACHING, SHOOTING DURATION:CONTINOUS, CONSTANT, ALL DAY PAIN IS INCREASED BY:ACTIVITIES PAIN IS DECREASED BY:USE OF PAIN MEDICATIONS NURSING NOTE: -. PAIN CENTER INTAKE QUESTIONS: DO YOU HAVE A HISTORY OF MRSA? :NO DO YOU TAKE A BLOOD THINNERS? :NO DO YOU HAVE ANY BLEEDING DISORDERS? :NO ANY NEW NUMBNESS OR WEAKNESS IN YOUR LEGS OR ARMS? :NO ANY PACEMAKER,DEFIBRILLATOR, OR DORSAL COLUMN STIMULATOR? :NO DO YOU HAVE ANY RASHES OR OPEN SORES? :NO ARE YOU ALLERGIC TO IV DYE? :NO ARE YOU DIABETIC? :NO ANY NEW PROBLEMS WITH YOUR MEDICATIONS? :NO HAVE YOU RECEIVED A VACCINE IN THE PAST 30 DAYS? :YES IF SO WHAT VACCINE AND WHEN? TETANUS 2ND COVI 06/07/2020 DO YOU PLAN TO RECEIVE A VACCINE IN THE NEXT 21 DAYS? :YES IF SO WHAT VACCINE AND WHEN? SHINGLES 07/17/2020 DO YOU NEED ANY PRESCRIPTION? :YES NORCO 5-325MG DO YOU TAKE ANY IMMUNOSUPPRESSIVE MEDICATIONS? :NO IS THERE A CHANCE YOU COULD BE ? :NO ARE YOU BREAST FEEDING? :NO CURRENT MEDICATIONS TAKING HYDROCODONE-ACETAMINOPHEN 5-325 MG TABLET 1 TABLET NEEDED ORALLY Q8H PRN MDD3 TAKING LORATADINE 10 MG TABLET 1 TABLET ORALLY ONCE A DAY TAKING TAMOXIFEN CITRATE 10 MG TABLET 1 TABLET ORALLY DAILY TAKING VENTOLIN HFA 108 (90 BASE) MCG/ACT AEROSOL SOLUTION 2 PUFFS INHALATION 4 TIMES A DAY NEEDED TAKING GABAPENTIN 100 MG CAPSULE 1 CAPSULE ORALLY ONCE A DAY TAKING MOBIC 15 MG TABLET 1 TABLET ORALLY ONCE A DAY TAKING LASIX 20 MG TABLET 1 TABLET ORALLY ONCE A DAY TAKING AMLODIPINE BESYLATE 10 MG TABLET 1 TABLET ORALLY ONCE A DAY TAKING LIPITOR 40 MG TABLET 1 TABLET ORALLY ONCE A DAY TAKING SYMBICORT 80-4.5 MCG/ACT AEROSOL 2 PUFFS INHALATION PURA TWICE A DAY TAKING NASONEX 50 MCG/ACT SUSPENSION 2 SPRAYS IN EACH NOSTRIL NASALLY ONCE A DAY TAKING OMEPRAZOLE 20 MG CAPSULE DELAYED RELEASE 1 CAPSULE 30 MINUTES BEFORE MORNING MEAL ORALLY ONCE A DAY TAKING METOPROLOL SUCCINATE ER 25 MG TABLET EXTENDED RELEASE 24 HOUR 1 TABLET ORALLY ONCE A DAY TAKING LISINOPRIL 20 MG TABLET 1 TABLET ORALLY ONCE A DAY NOT-TAKING NORCO 5-325 MG TABLET 1 TABLET NEEDED ORALLY EVERY 8 HOURS WHEN NECESSARY FOR PAIN MDD 2 MEDICATION LIST REVIEWED AND RECONCILED WITH THE PATIENT PAST MEDICAL HISTORY HYPERTENSION ASTHMA HYPERLIPIDEMIA TENOSYNOVITIS PERIMENOPAUSE H/O HSV STRESS TEST DONE BY DR RODRIGUES IN 2016 NORMAL BREAST CA BASAL CELL CARCINOMA 2014 CHRONIC LOW BACK PAIN SPINAL STENOSIS COLONOSCOPY 03/2020-5 YR FOLLOW UP RECOMMENDED PNEUMOVAX, TDAP, COVID-19 VACCINATION 2020-UTD FORMER SMOKER ALLERGIES SHRIMP: HIVES, RASH - ALLERGY ACETAMINOPHEN-CODEINE #3: CHEST PAINS - ALLERGY SOCIAL HISTORY GENERAL: TOBACCO USE ARE YOU A:FORMER SMOKER HOW LONG HAS IT BEEN SINCE YOU LAST SMOKED?1-5 YEARS QUIT 11/24/2018 MALES, AGE 65-75 WITH 5 PACK SMOKING HISTORY (100 CIGARETTES LIFETIME) FORMER 01/11/2020 SMOKING CESSATION INFORMATION GIVEN01/11/2019 VAPORNO E-CIGARETTENO LATEX QUESTIONNAIRE LATEX ALLERGY : HAVE YOU EVER DEVELOPED ANY TYPE OF REACTION AFTER HANDLING LATEX PRODUCTS SUCH RUBBER GLOVES, CONDOMS, DIAPHRAGMS, BALLOONS, SOCKS, OR UNDERWEAR?NO LATEX ALLERGY : HAVE YOU EVER DEVELOPED ANY TYPE OF REACTION DURING OR AFTER DENTAL APPOINTMENT, VAGINAL/RECTAL EXAMINATION, SURGICAL PROCEDURE, OR ANY OTHER EXPOSURE?NO LATEX RISK : HAVE YOU EVER HAD ANY DIFFICULTY BREATHING OR HIVES AFTER EATING OR HANDLING ANY FRUITS, OR VEGETABLES; SUCH KIWI, BANANAS, STONE FRUITS, OR CHESTNUTSNO LATEX RISK : DO YOU HAVE A PREVIOUS PERSONAL HISTORY OF MORE THAN NINE SURGERIES, SPINA BIFIDA, OR REPEATED CATHERIZATIONS? YES - PLEASE INDICATE : > 9 SURGERIES LATEX RISK : ARE YOU FREQUENTLY EXPOSED TO LATEX PRODUCTS IN YOUR OCCUPATION?YES PT STATES SHE USES LATEX PRODUCTS AT WORK DATE ASKED : 07/10/2020 ALCOHOL USE: NO. LUNG CANCER SCREENING SMOKING STATUS:FORMER SMOKER IS THE PATIENT BETWEEN THE AGE OF 54 AND 76?YES HAVE YOU QUIT SMOKING WITHIN THE PAST 15 YEARS?YES BMI CARE GOAL FOLLOW-UP ABOVE NORMAL BMI FOLLOW-UPDIETARY NEEDS EDUCATION ALCOHOL SCREENING DID YOU HAVE A DRINK CONTAINING ALCOHOL IN THE PAST YEAR?YES HOW OFTEN DID YOU HAVE SIX OR MORE DRINKS ON ONE OCCASION IN THE PAST YEAR?NEVER (0 POINTS) HOW MANY DRINKS DID YOU HAVE ON A TYPICAL DAY WHEN YOU WERE DRINKING IN THE PAST YEAR?1 OR 2 (0 POINTS) HOW OFTEN DID YOU HAVE A DRINK CONTAINING ALCOHOL IN THE PAST YEAR?MONTHLY OR LESS (1 POINT) POINTS1 INTERPRETATIONNEGATIVE RECREATIONAL DRUG USE DRUG USE?NO CAFFEINE 2/DAY. SEXUAL HX HAD SEX IN THE LAST 12 MONTHS (VAGINAL, ORAL, OR ANAL)?YES WITHMEN ONLY USE PROTECTION?NO HAVE YOU EVER HAD AN STD?NO HIV / HEP-C SCREENING HIV TEST OFFERED TO PATIENT:YES DATE OFFERED:01/11/2019 CONSENT SIGNED TEST ACCEPTED:NO HEP-C TEST OFFERED TO PATIENT:YES DATE OFFERED:01/11/2019 REASON:PATIENT DECLINED TEST ACCEPTED:NO CONSENT SIGNED REASON:PATIENT DECLINED BROCHURE PROVIDED TO PATIENTNO -DECLINED GNOSTICIST NO CHEONDOISM BELIEFS THAT WOULD IMPACT HEALTH CARE. LANGUAGE BELIZEAN. 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 DIET: NO HX EATING DISORDERS. EXERCISE: WALKING AND VERY ACTIVE THROUGH WORK AT [employer]. MARITAL STATUS: . OTHERS AT HOME: LIVES WITH HER 1 CAT, 2 DOGS; BOYFRIEND. - HAS THE PATIENT BEEN EDUCATED REGARDING HIS/HER PLAN OF CARE?YES HAS THE PATIENT BEEN EDUCATED REGARDING PAIN, THE RISK FOR PAIN, THE IMPORTANCE OF EFFECTIVE PAIN MANAGEMENT, AND THE PAIN ASSESSMENT PROCESS?YES ADVANCE DIRECTIVE ADVANCE DIRECTIVE DISCUSSED WITH PATIENT:YES PT DOES NOT HAVE HCP AND DECLINES INFORMATION OR ASSISTANCE WITH FORM TODAY. PAT DONE 06/29/19. REVIEW OF SYSTEMS CONSTITUTIONAL: ANY RECENT FEVER NO . CHILLS NO . WEIGHT CHANGE OF UNKNOWN REASONS NO . GASTROENTEROLOGY: NEW UNEXPLAINABLE CHANGES IN BOWEL CONTROL NO . CONSTIPATION NO . GENITOURINARY: ANY NEW CHANGE IN BLADDER CONTROL? NO . NEUROLOGY: NEW ONSET DIZZINESS OR NEUROLOGICAL CHANGES NOT MENTIONED NO . NEW NUMBNESS OR PAIN PATTERNS NOT MENTIONED AND PERTINENT TO TODAY'S VISIT NO . CARDIOLOGY: NEW CHEST PRESSURE NO . PATIENT DENIES NO . RESPIRATORY: UNEXPLAINABLE COUGH NO . NEW SHORTNESS OF BREATH NO . VITAL SIGNS WT 204.4 LBS, HT 67 IN, BMI 32.01 INDEX, BP 167/81 MM HG, REPEAT BP 150/83 MM HG, HR 85 /MIN, RR 18 /MIN, TEMP 98.9 F, OXYGEN SAT % 95%, SAFE IN ENV? (Y/N) YES, NA INITIALS FL 09:33T.GABE NOVAK. EXAMINATION GENERAL EXAMINATION: GENERALNO ACUTE DISTRESS, WELL NOURISHED AND HYDRATED. PSYCHAPPROPRIATE MOOD AND AFFECT . LUNGS:CLEAR TO AUSCULTATION BILATERALLY, NO WHEEZES, RHONCHI, RALES. HEART:NO MURMURS, REGULAR RATE AND RHYTHM. MUSCULOSKELETAL: TRIGGER POINTS: NOTED OVER LOW BACK REGION LEFT GREATER THAN RIGHT. PAIN IS AGGRAVATED IN THIS REGION WITH RANGE OF JOINT MOTION OF THE SPINE.. ASSESSMENTS OTHER CHRONIC PAIN - G89.29 (PRIMARY) MYALGIA, OTHER SITE - M79.18 TREATMENT OTHER CHRONIC PAIN REFILL HYDROCODONE-ACETAMINOPHEN TABLET, 5-325 MG, 1 TABLET NEEDED, ORALLY, Q8H PRN MDD3, 30 DAYS, 90, REFILLS 0 PAIN PROCEDURE LOGDATE OF PROCEDURE1PROCEDURE:TRIGGER POINT IJECTION BILATERAL LOW BACK, BILATERL THORACICAMOUNT OF PRE SEDATE0/0RESULT:IMPROVEMENT CONTINUES TODA NOTES: TRIGGER POINT INJECTIONS BILATERAL LOW BACK REVIEWED PRE PROCEDURE INFORMATION, PATIET VERBALIZED UNDERSTANDING, ALSO NOFTY THE FRONT DECK TO SCHEDULE PATIENT 2 WEEKS FROM [place] 07/17/2020 MOI NOVAK. PROCEDURE CODES FA211 ESTABILISHED PATIENT [facility] FACILITY CHARGE DISPOSITION & COMMUNICATION FOLLOW UP POST (REASON: TRIGGER POINT INJECTIONS BILATERAL LOW BACK) ELECTRONICALLY SIGNED BY NANCY MUNIZ ON 07/12/2020 AT 10:11 PM EDT DISCLAIMER : THIS IS A VISIT SUMMARY EXTRACTED FROM THE [employer] CHART. IT IS NOT A COPY OF THE [employer] PROGRESS NOTE. JAVIER
== END ==
LOC: M PAIN 09:30
PROVIDERS: ATTEND Nurse Practitioner Family
DX: M79.18 Myalgia, other site (principal); J45.909 Unspecified asthma, uncomplicated; Z87.891 Personal history of nicotine dependence; Z88.5 Allergy status to narcotic agent; Z91.013 Allergy to seafood; Z79.899 Other long term (current) drug therapy

== ENCOUNTER → 2020-08-14 | Outpatient (CLI) | payer BC ==
--- NOTE | 2020-08-16 00:20 | ECWPNPC ---
PATIENT NAME: RODNEY GOODWIN : 1960 GENDER: FEMALE VISIT DATE: 08/14/2020 DISCHARGE DATE: 08/14/20 1051 VISIT LOCKED DATE TIME: PHYSICIAN: NAYELI BAJWA PHYSICIAN PAGER NO: ACTIVE RESOURCE: NAYELI BAJWA REASON FOR APPOINTMENT 1. DISCUSS SACROILIAC JOINT INJECTION HISTORY OF PRESENT ILLNESS GENERAL: BEING SEEN TODAY ON AN URGENT BASIS DUE TO INCREASE IN LOW BACK PAIN. RECENT MRI OF THE LUMBAR SPINE IS REVIEWED. PAIN IS LOCATED ACROSS THE LOWER BACK LEFT GREATER THAN RIGHT AND TRAVELS INTO THE LEFT LEG. LEFT LEG RADICULAR SYMPTOMS BEGAN A FEW WEEKS AGO. DENIES PRECIPITATING EVENT. DISCUSSED TREATMENT PLAN. -. FALL RISK SCREENING: SCREENING : NO FALLS REPORTED IN THE LAST YEAR. PAIN SCREENING: PATIENT HAS A COMPLAINT OF ACUTE OR CHRONIC PAIN :YES LOCATION OF PAIN:LOW BACK, LEFT HIP, LEG(S) INTENSITY OF PAIN (SCALE OF 1 TO 10):10 WHAT DOES YOUR PAIN FEEL LIKE:ACHING, BURNING, CONTINOUS, SHARP, STABBING DURATION:CONTINOUS PAIN IS INCREASED BY:ACTIVITIES PAIN IS DECREASED BY:USE OF PAIN MEDICATIONS, OTHERS NOTHING HELPS PAIN RIGHT NOW, PAIN MEDS AND REST TAKES THE EDGE OFF NURSING NOTE: -. PAIN CENTER INTAKE QUESTIONS: DO YOU HAVE A HISTORY OF MRSA? :NO DO YOU TAKE A BLOOD THINNERS? :NO DO YOU HAVE ANY BLEEDING DISORDERS? :NO ANY NEW NUMBNESS OR WEAKNESS IN YOUR LEGS OR ARMS? :NO ANY PACEMAKER,DEFIBRILLATOR, OR DORSAL COLUMN STIMULATOR? :NO DO YOU HAVE ANY RASHES OR OPEN SORES? :NO ARE YOU ALLERGIC TO IV DYE? :NO ARE YOU DIABETIC? :NO ANY NEW PROBLEMS WITH YOUR MEDICATIONS? :NO HAVE YOU RECEIVED A VACCINE IN THE PAST 30 DAYS? :YES IF SO WHAT VACCINE AND WHEN? TETANUS 2ND COVI 06/07/2020 DO YOU PLAN TO RECEIVE A VACCINE IN THE NEXT 21 DAYS? :YES IF SO WHAT VACCINE AND WHEN? SHINGLES 07/17/2020 DO YOU NEED ANY PRESCRIPTION? :NO DO YOU TAKE ANY IMMUNOSUPPRESSIVE MEDICATIONS? :NO IS THERE A CHANCE YOU COULD BE ? :NO ARE YOU BREAST FEEDING? :NO CURRENT MEDICATIONS TAKING LORATADINE 10 MG TABLET 1 TABLET ORALLY ONCE A DAY TAKING TAMOXIFEN CITRATE 10 MG TABLET 1 TABLET ORALLY DAILY TAKING VENTOLIN HFA 108 (90 BASE) MCG/ACT AEROSOL SOLUTION 2 PUFFS INHALATION 4 TIMES A DAY NEEDED TAKING GABAPENTIN 100 MG CAPSULE 1 CAPSULE ORALLY ONCE A DAY TAKING MOBIC 15 MG TABLET 1 TABLET ORALLY ONCE A DAY TAKING LASIX 20 MG TABLET 1 TABLET ORALLY ONCE A DAY TAKING AMLODIPINE BESYLATE 10 MG TABLET 1 TABLET ORALLY ONCE A DAY TAKING LIPITOR 40 MG TABLET 1 TABLET ORALLY ONCE A DAY TAKING SYMBICORT 80-4.5 MCG/ACT AEROSOL 2 PUFFS INHALATION PURA TWICE A DAY TAKING NASONEX 50 MCG/ACT SUSPENSION 2 SPRAYS IN EACH NOSTRIL NASALLY ONCE A DAY TAKING OMEPRAZOLE 20 MG CAPSULE DELAYED RELEASE 1 CAPSULE 30 MINUTES BEFORE MORNING MEAL ORALLY ONCE A DAY TAKING METOPROLOL SUCCINATE ER 25 MG TABLET EXTENDED RELEASE 24 HOUR 1 TABLET ORALLY ONCE A DAY TAKING LISINOPRIL 20 MG TABLET 1 TABLET ORALLY ONCE A DAY TAKING HYDROCODONE-ACETAMINOPHEN 5-325 MG TABLET 1 TABLET NEEDED ORALLY Q8H PRN MDD3 NOT-TAKING NORCO 5-325 MG TABLET 1 TABLET NEEDED ORALLY EVERY 8 HOURS WHEN NECESSARY FOR PAIN MDD 2 MEDICATION LIST REVIEWED AND RECONCILED WITH THE PATIENT PAST MEDICAL HISTORY HYPERTENSION ASTHMA HYPERLIPIDEMIA TENOSYNOVITIS PERIMENOPAUSE H/O HSV STRESS TEST DONE BY DR RODRIGUES IN 2016 NORMAL BREAST CA BASAL CELL CARCINOMA 2014 CHRONIC LOW BACK PAIN SPINAL STENOSIS COLONOSCOPY 03/2020-5 YR FOLLOW UP RECOMMENDED PNEUMOVAX, TDAP, COVID-19 VACCINATION 2020-UTD FORMER SMOKER ALLERGIES SHRIMP: HIVES, RASH - ALLERGY ACETAMINOPHEN-CODEINE #3: CHEST PAINS - ALLERGY SOCIAL HISTORY GENERAL: TOBACCO USE ARE YOU A:FORMER SMOKER HOW LONG HAS IT BEEN SINCE YOU LAST SMOKED?1-5 YEARS QUIT 11/24/2018 VAPORNO E-CIGARETTENO SMOKING CESSATION INFORMATION GIVEN01/11/2019 MALES, AGE 65-75 WITH 5 PACK SMOKING HISTORY (100 CIGARETTES LIFETIME) FORMER 01/11/2020 LATEX QUESTIONNAIRE LATEX ALLERGY : HAVE YOU EVER DEVELOPED ANY TYPE OF REACTION AFTER HANDLING LATEX PRODUCTS SUCH RUBBER GLOVES, CONDOMS, DIAPHRAGMS, BALLOONS, SOCKS, OR UNDERWEAR?NO LATEX ALLERGY : HAVE YOU EVER DEVELOPED ANY TYPE OF REACTION DURING OR AFTER DENTAL APPOINTMENT, VAGINAL/RECTAL EXAMINATION, SURGICAL PROCEDURE, OR ANY OTHER EXPOSURE?NO LATEX RISK : HAVE YOU EVER HAD ANY DIFFICULTY BREATHING OR HIVES AFTER EATING OR HANDLING ANY FRUITS, OR VEGETABLES; SUCH KIWI, BANANAS, STONE FRUITS, OR CHESTNUTSNO LATEX RISK : DO YOU HAVE A PREVIOUS PERSONAL HISTORY OF MORE THAN NINE SURGERIES, SPINA BIFIDA, OR REPEATED CATHERIZATIONS? YES - PLEASE INDICATE : > 9 SURGERIES LATEX RISK : ARE YOU FREQUENTLY EXPOSED TO LATEX PRODUCTS IN YOUR OCCUPATION?YES PT STATES SHE USES LATEX PRODUCTS AT WORK DATE ASKED : 08/14/2020 ALCOHOL USE: NO. LUNG CANCER SCREENING SMOKING STATUS:FORMER SMOKER IS THE PATIENT BETWEEN THE AGE OF 54 AND 76?YES HAVE YOU QUIT SMOKING WITHIN THE PAST 15 YEARS?YES BMI CARE GOAL FOLLOW-UP ABOVE NORMAL BMI FOLLOW-UPDIETARY NEEDS EDUCATION ALCOHOL SCREENING DID YOU HAVE A DRINK CONTAINING ALCOHOL IN THE PAST YEAR?YES HOW OFTEN DID YOU HAVE SIX OR MORE DRINKS ON ONE OCCASION IN THE PAST YEAR?NEVER (0 POINTS) HOW MANY DRINKS DID YOU HAVE ON A TYPICAL DAY WHEN YOU WERE DRINKING IN THE PAST YEAR?1 OR 2 (0 POINTS) HOW OFTEN DID YOU HAVE A DRINK CONTAINING ALCOHOL IN THE PAST YEAR?MONTHLY OR LESS (1 POINT) POINTS1 INTERPRETATIONNEGATIVE RECREATIONAL DRUG USE DRUG USE?NO CAFFEINE 2/DAY. SEXUAL HX HAD SEX IN THE LAST 12 MONTHS (VAGINAL, ORAL, OR ANAL)?YES WITHMEN ONLY USE PROTECTION?NO HAVE YOU EVER HAD AN STD?NO HIV / HEP-C SCREENING HIV TEST OFFERED TO PATIENT:YES DATE OFFERED:01/11/2019 CONSENT SIGNED TEST ACCEPTED:NO HEP-C TEST OFFERED TO PATIENT:YES DATE OFFERED:01/11/2019 REASON:PATIENT DECLINED TEST ACCEPTED:NO CONSENT SIGNED REASON:PATIENT DECLINED BROCHURE PROVIDED TO PATIENTNO -DECLINED [place] NO VOODOO BELIEFS THAT WOULD IMPACT HEALTH CARE. LANGUAGE ROMANIAN. 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 DIET: NO HX EATING DISORDERS. EXERCISE: WALKING AND VERY ACTIVE THROUGH WORK AT [employer]. MARITAL STATUS: . OTHERS AT HOME: LIVES WITH HER 1 CAT, 2 DOGS; BOYFRIEND. - HAS THE PATIENT BEEN EDUCATED REGARDING HIS/HER PLAN OF CARE?YES HAS THE PATIENT BEEN EDUCATED REGARDING PAIN, THE RISK FOR PAIN, THE IMPORTANCE OF EFFECTIVE PAIN MANAGEMENT, AND THE PAIN ASSESSMENT PROCESS?YES ADVANCE DIRECTIVE ADVANCE DIRECTIVE DISCUSSED WITH PATIENT:YES PT DOES NOT HAVE HCP AND DECLINES INFORMATION OR ASSISTANCE WITH FORM TODAY. REVIEW OF SYSTEMS CONSTITUTIONAL: ANY RECENT FEVER NO . CHILLS NO . WEIGHT CHANGE OF UNKNOWN REASONS NO . GASTROENTEROLOGY: NEW UNEXPLAINABLE CHANGES IN BOWEL CONTROL NO . CONSTIPATION NO . GENITOURINARY: ANY NEW CHANGE IN BLADDER CONTROL? NO . NEUROLOGY: NEW ONSET DIZZINESS OR NEUROLOGICAL CHANGES NOT MENTIONED NO . NEW NUMBNESS OR PAIN PATTERNS NOT MENTIONED AND PERTINENT TO TODAY'S VISIT NO . CARDIOLOGY: NEW CHEST PRESSURE NO . PATIENT DENIES NO . RESPIRATORY: UNEXPLAINABLE COUGH NO . NEW SHORTNESS OF BREATH NO . VITAL SIGNS WT 204.6 LBS, HT 67 IN, BMI 32.04 INDEX, BP 179/82 MM HG, HR 87 /MIN, RR 18 /MIN, TEMP 96.0 F, OXYGEN SAT % 97%, SAFE IN ENV? (Y/N) YES, NA INITIALS AW 0947, REVIEWED BY: Laure NASCIMENTO RN. EXAMINATION GENERAL EXAMINATION: GENERAL ALERT,NO DISTRESS . PSYCH AFFECT NORMAL . LUNGS: LUNG SOUNDS ARE CLEAR . HEART: HEART RATE REGULAR . MUSCULOSKELETAL:WEAKNESS NOTED OVER LEFT LEG. LUMBAR: TENDERNESS BILAT. SIJ LEFT GREATER THAN RIGHT. POSITIVE SHEA'S TESTING OVER LEFT LEG. DIAGNOSTIC TESTS REVIEWEDMRI L/S SPINE-05/29/2020. ASSESSMENTS SACROILIITIS, NOT ELSEWHERE CLASSIFIED - M46.1 (PRIMARY) CORRECTION (CURRENT) USE OF OPIATE ANALGESIC - Z79.891 TREATMENT SACROILIITIS, NOT ELSEWHERE CLASSIFIED LAB: URINE TEST GROUP PUJA BERNAL 08/14/2020 11:16:26 AM > LAST DOSE: HYDROCODONE 08/13/2020 @16:30PM MEDICATION: VALIUM TAB 10MG ORALLY (DIAZEPAM) (ORDERED FOR 08/28/2020) MED: PAIN NORCO TABLET 5MG/325MG ORALLY HYDROCODONE/ACETAMINOPHEN (ORDERED FOR 08/28/2020) NOTES: BILATERAL SACROILIAC JOINT BLOCK. PROCEDURE CODES FA211 ESTABILISHED PATIENT [facility] FACILITY CHARGE DISPOSITION & COMMUNICATION FOLLOW UP POST (REASON: BILATERAL SACROILIAC JOINT BLOCK ) ELECTRONICALLY SIGNED BY NANCY MUNIZ ON 08/15/2020 AT 01:57 PM EDT DISCLAIMER : THIS IS A VISIT SUMMARY EXTRACTED FROM THE [employer] CHART. IT IS NOT A COPY OF THE [employer] PROGRESS NOTE. MTDD
== END ==
LOC: M PAIN 09:45
PROVIDERS: ATTEND Nurse Practitioner Family
DX: M46.1 Sacroiliitis, not elsewhere classified (principal); J45.909 Unspecified asthma, uncomplicated; Z87.891 Personal history of nicotine dependence; Z88.5 Allergy status to narcotic agent; Z91.013 Allergy to seafood; Z79.899 Other long term (current) drug therapy

== ENCOUNTER → 2020-08-21 | Outpatient (CLI) | payer BC ==
--- NOTE | 2020-08-21 23:03 | ECWPNPC ---
PATIENT NAME: RODNEY GOODWIN : 1960 GENDER: FEMALE VISIT DATE: 08/21/2020 DISCHARGE DATE: 08/21/20 1005 VISIT LOCKED DATE TIME: PHYSICIAN: NAYELI BAJWA PHYSICIAN PAGER NO: ACTIVE RESOURCE: NAYELI BAJWA REASON FOR APPOINTMENT 1. DISCUSS DENIAL SACROILIAC JOINT BLOCK HISTORY OF PRESENT ILLNESS GENERAL: HERE FOR FOLLOW-UP OF CHRONIC LOW BACK PAIN. PAIN IS INCREASED OVER THE PAST 3 MONTHS. PAIN IS AGGRAVATED BY PROLONGED STANDING. PAIN IS LOCATED ACROSS HER LOWER BACK LEFT GREATER THAN RIGHT. -. FALL RISK SCREENING: SCREENING : NO FALLS REPORTED IN THE LAST YEAR. PAIN SCREENING: PATIENT HAS A COMPLAINT OF ACUTE OR CHRONIC PAIN :YES LOCATION OF PAIN:LOW BACK SACROILIAC JOINT INTENSITY OF PAIN (SCALE OF 1 TO 10):11 WHAT DOES YOUR PAIN FEEL LIKE:ACHING, CONTINOUS, STABBING, TENDER, THROBBING, SORE, SHOOTING DURATION:CONTINOUS, CONSTANT, ALL DAY PAIN IS INCREASED BY:ACTIVITIES PAIN IS DECREASED BY:OTHERS RELAXING NURSING NOTE: -. PAIN CENTER INTAKE QUESTIONS: DO YOU HAVE A HISTORY OF MRSA? :NO DO YOU TAKE A BLOOD THINNERS? :NO DO YOU HAVE ANY BLEEDING DISORDERS? :NO ANY NEW NUMBNESS OR WEAKNESS IN YOUR LEGS OR ARMS? :NO ANY PACEMAKER,DEFIBRILLATOR, OR DORSAL COLUMN STIMULATOR? :NO DO YOU HAVE ANY RASHES OR OPEN SORES? :NO ARE YOU ALLERGIC TO IV DYE? :NO ARE YOU DIABETIC? :NO ANY NEW PROBLEMS WITH YOUR MEDICATIONS? :NO HAVE YOU RECEIVED A VACCINE IN THE PAST 30 DAYS? :YES IF SO WHAT VACCINE AND WHEN? TETANUS 2ND COVI 06/07/2020 DO YOU PLAN TO RECEIVE A VACCINE IN THE NEXT 21 DAYS? :YES IF SO WHAT VACCINE AND WHEN? SHINGLES 07/17/2020 2ND: 4 MONTH AWAY DO YOU NEED ANY PRESCRIPTION? :NO DO YOU TAKE ANY IMMUNOSUPPRESSIVE MEDICATIONS? :NO IS THERE A CHANCE YOU COULD BE ? :NO ARE YOU BREAST FEEDING? :NO CURRENT MEDICATIONS TAKING LORATADINE 10 MG TABLET 1 TABLET ORALLY ONCE A DAY TAKING TAMOXIFEN CITRATE 10 MG TABLET 1 TABLET ORALLY DAILY TAKING VENTOLIN HFA 108 (90 BASE) MCG/ACT AEROSOL SOLUTION 2 PUFFS INHALATION 4 TIMES A DAY NEEDED TAKING GABAPENTIN 100 MG CAPSULE 1 CAPSULE ORALLY ONCE A DAY TAKING MOBIC 15 MG TABLET 1 TABLET ORALLY ONCE A DAY TAKING LASIX 20 MG TABLET 1 TABLET ORALLY ONCE A DAY TAKING AMLODIPINE BESYLATE 10 MG TABLET 1 TABLET ORALLY ONCE A DAY TAKING LIPITOR 40 MG TABLET 1 TABLET ORALLY ONCE A DAY TAKING SYMBICORT 80-4.5 MCG/ACT AEROSOL 2 PUFFS INHALATION PURA TWICE A DAY TAKING NASONEX 50 MCG/ACT SUSPENSION 2 SPRAYS IN EACH NOSTRIL NASALLY ONCE A DAY TAKING OMEPRAZOLE 20 MG CAPSULE DELAYED RELEASE 1 CAPSULE 30 MINUTES BEFORE MORNING MEAL ORALLY ONCE A DAY TAKING METOPROLOL SUCCINATE ER 25 MG TABLET EXTENDED RELEASE 24 HOUR 1 TABLET ORALLY ONCE A DAY TAKING LISINOPRIL 20 MG TABLET 1 TABLET ORALLY ONCE A DAY TAKING HYDROCODONE-ACETAMINOPHEN 5-325 MG TABLET 1 TABLET NEEDED ORALLY Q8H PRN MDD3 NOT-TAKING NORCO 5-325 MG TABLET 1 TABLET NEEDED ORALLY EVERY 8 HOURS WHEN NECESSARY FOR PAIN MDD 2 MEDICATION LIST REVIEWED AND RECONCILED WITH THE PATIENT ALLERGIES NO[ALLERGIES VERIFIED] SOCIAL HISTORY GENERAL: TOBACCO USE ARE YOU A:FORMER SMOKER HOW LONG HAS IT BEEN SINCE YOU LAST SMOKED?1-5 YEARS QUIT 11/24/2018 MALES, AGE 65-75 WITH 5 PACK SMOKING HISTORY (100 CIGARETTES LIFETIME) FORMER 01/11/2020 SMOKING CESSATION INFORMATION GIVEN01/11/2019 VAPORNO E-CIGARETTENO LATEX QUESTIONNAIRE LATEX ALLERGY : HAVE YOU EVER DEVELOPED ANY TYPE OF REACTION AFTER HANDLING LATEX PRODUCTS SUCH RUBBER GLOVES, CONDOMS, DIAPHRAGMS, BALLOONS, SOCKS, OR UNDERWEAR?NO LATEX ALLERGY : HAVE YOU EVER DEVELOPED ANY TYPE OF REACTION DURING OR AFTER DENTAL APPOINTMENT, VAGINAL/RECTAL EXAMINATION, SURGICAL PROCEDURE, OR ANY OTHER EXPOSURE?NO LATEX RISK : HAVE YOU EVER HAD ANY DIFFICULTY BREATHING OR HIVES AFTER EATING OR HANDLING ANY FRUITS, OR VEGETABLES; SUCH KIWI, BANANAS, STONE FRUITS, OR CHESTNUTSNO LATEX RISK : DO YOU HAVE A PREVIOUS PERSONAL HISTORY OF MORE THAN NINE SURGERIES, SPINA BIFIDA, OR REPEATED CATHERIZATIONS? YES - PLEASE INDICATE : > 9 SURGERIES LATEX RISK : ARE YOU FREQUENTLY EXPOSED TO LATEX PRODUCTS IN YOUR OCCUPATION?YES PT STATES SHE USES LATEX PRODUCTS AT WORK DATE ASKED : 08/21/2020 ALCOHOL USE: NO. LUNG CANCER SCREENING SMOKING STATUS:FORMER SMOKER IS THE PATIENT BETWEEN THE AGE OF 54 AND 76?YES HAVE YOU QUIT SMOKING WITHIN THE PAST 15 YEARS?YES BMI CARE GOAL FOLLOW-UP ABOVE NORMAL BMI FOLLOW-UPDIETARY NEEDS EDUCATION ALCOHOL SCREENING DID YOU HAVE A DRINK CONTAINING ALCOHOL IN THE PAST YEAR?YES HOW OFTEN DID YOU HAVE SIX OR MORE DRINKS ON ONE OCCASION IN THE PAST YEAR?NEVER (0 POINTS) HOW MANY DRINKS DID YOU HAVE ON A TYPICAL DAY WHEN YOU WERE DRINKING IN THE PAST YEAR?1 OR 2 (0 POINTS) HOW OFTEN DID YOU HAVE A DRINK CONTAINING ALCOHOL IN THE PAST YEAR?MONTHLY OR LESS (1 POINT) POINTS1 INTERPRETATIONNEGATIVE RECREATIONAL DRUG USE DRUG USE?NO CAFFEINE 2/DAY. SEXUAL HX HAD SEX IN THE LAST 12 MONTHS (VAGINAL, ORAL, OR ANAL)?YES WITHMEN ONLY USE PROTECTION?NO HAVE YOU EVER HAD AN STD?NO HIV / HEP-C SCREENING HIV TEST OFFERED TO PATIENT:YES DATE OFFERED:01/11/2019 CONSENT SIGNED TEST ACCEPTED:NO HEP-C TEST OFFERED TO PATIENT:YES DATE OFFERED:01/11/2019 REASON:PATIENT DECLINED TEST ACCEPTED:NO CONSENT SIGNED REASON:PATIENT DECLINED BROCHURE PROVIDED TO PATIENTNO -DECLINED MU-ISM NO CATHOLIC BELIEFS THAT WOULD IMPACT HEALTH CARE. LANGUAGE TAJIK. 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 DIET: NO HX EATING DISORDERS. EXERCISE: WALKING AND VERY ACTIVE THROUGH WORK AT [employer]. MARITAL STATUS: . OTHERS AT HOME: LIVES WITH HER 1 CAT, 2 DOGS; BOYFRIEND. - HAS THE PATIENT BEEN EDUCATED REGARDING HIS/HER PLAN OF CARE?YES HAS THE PATIENT BEEN EDUCATED REGARDING PAIN, THE RISK FOR PAIN, THE IMPORTANCE OF EFFECTIVE PAIN MANAGEMENT, AND THE PAIN ASSESSMENT PROCESS?YES ADVANCE DIRECTIVE ADVANCE DIRECTIVE DISCUSSED WITH PATIENT:YES PT DOES NOT HAVE HCP AND DECLINES INFORMATION OR ASSISTANCE WITH FORM TODAY. REVIEW OF SYSTEMS CONSTITUTIONAL: ANY RECENT FEVER NO . CHILLS NO . WEIGHT CHANGE OF UNKNOWN REASONS NO . GASTROENTEROLOGY: NEW UNEXPLAINABLE CHANGES IN BOWEL CONTROL NO . CONSTIPATION NO . GENITOURINARY: ANY NEW CHANGE IN BLADDER CONTROL? NO . NEUROLOGY: NEW ONSET DIZZINESS OR NEUROLOGICAL CHANGES NOT MENTIONED NO . NEW NUMBNESS OR PAIN PATTERNS NOT MENTIONED AND PERTINENT TO TODAY'S VISIT NO . CARDIOLOGY: NEW CHEST PRESSURE NO . PATIENT DENIES NO . RESPIRATORY: UNEXPLAINABLE COUGH NO . NEW SHORTNESS OF BREATH NO . VITAL SIGNS WT 205 LBS, HT 67 IN, BMI 32.10 INDEX, BP 156/84 MM HG, HR 88 /MIN, RR 18 /MIN, TEMP 98.2 F, OXYGEN SAT % 94%, SAFE IN ENV? (Y/N) YES, NA INITIALS MO 09:29MOI NOVAK. EXAMINATION GENERAL EXAMINATION: GENERAL ALERT,NO DISTRESS . PSYCH AFFECT NORMAL . LUNGS: LUNG SOUNDS ARE CLEAR . HEART: HEART RATE REGULAR . MUSCULOSKELETAL:WEAKNESS NOTED OVER LEFT LEG. LUMBAR:POSITIVE SI COMPRESSION TEST BILATERALLY LEFT GREATER THAN RIGHT. POSITIVE SHEA'S TESTING LEFT GREATER THAN RIGHT. POSITIVE THIGH THRUST EXAM NOTED OVER LEFT GREATER THAN RIGHT LOW BACK/SACROILIAC JOINT.. DIAGNOSTIC TESTS REVIEWEDMRI L/S SPINE-05/29/2020. ASSESSMENTS SACROILIITIS, NOT ELSEWHERE CLASSIFIED - [id number] (PRIMARY) TREATMENT SACROILIITIS, NOT ELSEWHERE CLASSIFIED NOTES: BILATERAL SACROILIAC JOINT BLOCK PATIENT STATED THAT SHE ALREADY KNOW THE PROCEDURE INFORMATION AND DID NOT NEED A COPY OF THE INFORMATION- NO CONSENT WAS SIGNED AT THIS TIME MOI NOVAK. PROCEDURE CODES FA211 ESTABILISHED PATIENT [facility] CHARGE DISPOSITION & COMMUNICATION FOLLOW UP POST (REASON: BILATERAL SACROILIAC JOINT BLOCK ) ELECTRONICALLY SIGNED BY NANCY MUNIZ ON 08/21/2020 AT 11:23 AM EDT DISCLAIMER : THIS IS A VISIT SUMMARY EXTRACTED FROM THE [employer] CHART. IT IS NOT A COPY OF THE [employer] PROGRESS NOTE. JAVIER
== END ==
LOC: M PAIN 09:30
PROVIDERS: ATTEND Nurse Practitioner Family
DX: M46.1 Sacroiliitis, not elsewhere classified (principal); Z87.891 Personal history of nicotine dependence; Z79.891 Long term (current) use of opiate analgesic; Z79.899 Other long term (current) drug therapy

== ENCOUNTER → 2020-08-31 | Outpatient (CLI) | payer BC ==
--- NOTE | 2020-09-01 23:56 | ECWPNPC ---
PATIENT NAME: RODNEY GOODWIN : 1960 GENDER: FEMALE VISIT DATE: 08/31/2020 DISCHARGE DATE: 08/31/20 1103 VISIT LOCKED DATE TIME: PHYSICIAN: NAYELI BAJWA PHYSICIAN PAGER NO: ACTIVE RESOURCE: NAYELI BAJWA REASON FOR APPOINTMENT 1. DISCUSS ALTERNATIVE PROCEDURE HISTORY OF PRESENT ILLNESS GENERAL: HERE FOR FOLLOW-UP OF CHRONIC LOW BACK PAIN. HISTORY OF LUMBAR SURGERY IN FALL 2019. HAS BEEN DOING FAIRLY WELL POST SURGERY. RECENTLY HAS BEEN HAVING NEW ONSET OF LEFT LEG RADICULAR SYMPTOMS. THIS BEGAN 4 TO 6 WEEKS AGO WITHOUT PRECIPITATING EVENT. REVIEWED MRI OF THE LS SPINE AND DISCUSSED CAUDAL EPIDURAL STEROID INJECTION. -. FALL RISK SCREENING: SCREENING : NO FALLS REPORTED IN THE LAST YEAR. PAIN SCREENING: PATIENT HAS A COMPLAINT OF ACUTE OR CHRONIC PAIN :YES LOCATION OF PAIN:LOW BACK INTENSITY OF PAIN (SCALE OF 1 TO 10):8 WHAT DOES YOUR PAIN FEEL LIKE:ACHING, CONTINOUS, SHOOTING DURATION:CONTINOUS, CONSTANT, ALL DAY, AWAKENS FROM SLEEP PAIN IS INCREASED BY:ACTIVITIES PAIN IS DECREASED BY:USE OF PAIN MEDICATIONS NURSING NOTE: -. PAIN CENTER INTAKE QUESTIONS: DO YOU HAVE A HISTORY OF MRSA? :NO DO YOU TAKE A BLOOD THINNERS? :NO DO YOU HAVE ANY BLEEDING DISORDERS? :NO ANY NEW NUMBNESS OR WEAKNESS IN YOUR LEGS OR ARMS? :YES RIGTH SIDE POKE ANY PACEMAKER,DEFIBRILLATOR, OR DORSAL COLUMN STIMULATOR? :NO DO YOU HAVE ANY RASHES OR OPEN SORES? :NO ARE YOU ALLERGIC TO IV DYE? :NO ARE YOU DIABETIC? :NO ANY NEW PROBLEMS WITH YOUR MEDICATIONS? :NO HAVE YOU RECEIVED A VACCINE IN THE PAST 30 DAYS? :YES IF SO WHAT VACCINE AND WHEN? TETANUS 2ND COVI 06/07/2020 DO YOU PLAN TO RECEIVE A VACCINE IN THE NEXT 21 DAYS? :YES IF SO WHAT VACCINE AND WHEN? SHINGLES 07/17/2020 2ND: 4 MONTH AWAY DO YOU NEED ANY PRESCRIPTION? :NO DO YOU TAKE ANY IMMUNOSUPPRESSIVE MEDICATIONS? :NO IS THERE A CHANCE YOU COULD BE ? :NO ARE YOU BREAST FEEDING? :NO CURRENT MEDICATIONS TAKING TAMOXIFEN CITRATE 10 MG TABLET 1 TABLET ORALLY DAILY TAKING VENTOLIN HFA 108 (90 BASE) MCG/ACT AEROSOL SOLUTION 2 PUFFS INHALATION 4 TIMES A DAY NEEDED TAKING GABAPENTIN 100 MG CAPSULE 1 CAPSULE ORALLY ONCE A DAY TAKING MOBIC 15 MG TABLET 1 TABLET ORALLY ONCE A DAY TAKING LASIX 20 MG TABLET 1 TABLET ORALLY ONCE A DAY TAKING AMLODIPINE BESYLATE 10 MG TABLET 1 TABLET ORALLY ONCE A DAY TAKING LIPITOR 40 MG TABLET 1 TABLET ORALLY ONCE A DAY TAKING SYMBICORT 80-4.5 MCG/ACT AEROSOL 2 PUFFS INHALATION PURA TWICE A DAY TAKING NASONEX 50 MCG/ACT SUSPENSION 2 SPRAYS IN EACH NOSTRIL NASALLY ONCE A DAY TAKING METOPROLOL SUCCINATE ER 25 MG TABLET EXTENDED RELEASE 24 HOUR 1 TABLET ORALLY ONCE A DAY TAKING LISINOPRIL 20 MG TABLET 1 TABLET ORALLY ONCE A DAY TAKING HYDROCODONE-ACETAMINOPHEN 5-325 MG TABLET 1 TABLET NEEDED ORALLY Q8H PRN MDD3 NOT-TAKING LORATADINE 10 MG TABLET 1 TABLET ORALLY ONCE A DAY NOT-TAKING OMEPRAZOLE 20 MG CAPSULE DELAYED RELEASE 1 CAPSULE 30 MINUTES BEFORE MORNING MEAL ORALLY ONCE A DAY NOT-TAKING NORCO 5-325 MG TABLET 1 TABLET NEEDED ORALLY EVERY 8 HOURS WHEN NECESSARY FOR PAIN MDD 2 MEDICATION LIST REVIEWED AND RECONCILED WITH THE PATIENT PAST MEDICAL HISTORY HYPERTENSION ASTHMA HYPERLIPIDEMIA TENOSYNOVITIS PERIMENOPAUSE H/O HSV STRESS TEST DONE BY DR RODRIGUES IN 2016 NORMAL BREAST CA BASAL CELL CARCINOMA 2014 CHRONIC LOW BACK PAIN SPINAL STENOSIS COLONOSCOPY 03/2020-5 YR FOLLOW UP RECOMMENDED PNEUMOVAX, TDAP, COVID-19 VACCINATION 2020-UTD FORMER SMOKER SHINGLES 07/17/2020 2ND: 4 MONTH AWAY ALLERGIES SHRIMP: HIVES, RASH - ALLERGY ACETAMINOPHEN-CODEINE #3: CHEST PAINS - ALLERGY SOCIAL HISTORY GENERAL: TOBACCO USE ARE YOU A:FORMER SMOKER HOW LONG HAS IT BEEN SINCE YOU LAST SMOKED?1-5 YEARS QUIT 11/24/2018 MALES, AGE 65-75 WITH 5 PACK SMOKING HISTORY (100 CIGARETTES LIFETIME) FORMER 01/11/2020 SMOKING CESSATION INFORMATION GIVEN01/11/2019 VAPORNO E-CIGARETTENO LATEX QUESTIONNAIRE LATEX ALLERGY : HAVE YOU EVER DEVELOPED ANY TYPE OF REACTION AFTER HANDLING LATEX PRODUCTS SUCH RUBBER GLOVES, CONDOMS, DIAPHRAGMS, BALLOONS, SOCKS, OR UNDERWEAR?NO LATEX ALLERGY : HAVE YOU EVER DEVELOPED ANY TYPE OF REACTION DURING OR AFTER DENTAL APPOINTMENT, VAGINAL/RECTAL EXAMINATION, SURGICAL PROCEDURE, OR ANY OTHER EXPOSURE?NO LATEX RISK : HAVE YOU EVER HAD ANY DIFFICULTY BREATHING OR HIVES AFTER EATING OR HANDLING ANY FRUITS, OR VEGETABLES; SUCH KIWI, BANANAS, STONE FRUITS, OR CHESTNUTSNO LATEX RISK : DO YOU HAVE A PREVIOUS PERSONAL HISTORY OF MORE THAN NINE SURGERIES, SPINA BIFIDA, OR REPEATED CATHERIZATIONS? YES - PLEASE INDICATE : > 9 SURGERIES LATEX RISK : ARE YOU FREQUENTLY EXPOSED TO LATEX PRODUCTS IN YOUR OCCUPATION?YES PT STATES SHE USES LATEX PRODUCTS AT WORK DATE ASKED : 08/31/2020 ALCOHOL USE: NO. LUNG CANCER SCREENING SMOKING STATUS:FORMER SMOKER IS THE PATIENT BETWEEN THE AGE OF 54 AND 76?YES HAVE YOU QUIT SMOKING WITHIN THE PAST 15 YEARS?YES BMI CARE GOAL FOLLOW-UP ABOVE NORMAL BMI FOLLOW-UPDIETARY NEEDS EDUCATION ALCOHOL SCREENING DID YOU HAVE A DRINK CONTAINING ALCOHOL IN THE PAST YEAR?YES HOW OFTEN DID YOU HAVE SIX OR MORE DRINKS ON ONE OCCASION IN THE PAST YEAR?NEVER (0 POINTS) HOW MANY DRINKS DID YOU HAVE ON A TYPICAL DAY WHEN YOU WERE DRINKING IN THE PAST YEAR?1 OR 2 (0 POINTS) HOW OFTEN DID YOU HAVE A DRINK CONTAINING ALCOHOL IN THE PAST YEAR?MONTHLY OR LESS (1 POINT) POINTS1 INTERPRETATIONNEGATIVE RECREATIONAL DRUG USE DRUG USE?NO CAFFEINE 2/DAY. SEXUAL HX HAD SEX IN THE LAST 12 MONTHS (VAGINAL, ORAL, OR ANAL)?YES WITHMEN ONLY USE PROTECTION?NO HAVE YOU EVER HAD AN STD?NO HIV / HEP-C SCREENING HIV TEST OFFERED TO PATIENT:YES DATE OFFERED:01/11/2019 CONSENT SIGNED TEST ACCEPTED:NO HEP-C TEST OFFERED TO PATIENT:YES DATE OFFERED:01/11/2019 REASON:PATIENT DECLINED TEST ACCEPTED:NO CONSENT SIGNED REASON:PATIENT DECLINED BROCHURE PROVIDED TO PATIENTNO -DECLINED SPIRITISM NO RESTORATIONISM BELIEFS THAT WOULD IMPACT HEALTH CARE. LANGUAGE THAI. 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 DIET: NO HX EATING DISORDERS. EXERCISE: WALKING AND VERY ACTIVE THROUGH WORK AT [employer]. MARITAL STATUS: . OTHERS AT HOME: LIVES WITH HER 1 CAT, 2 DOGS; BOYFRIEND. - HAS THE PATIENT BEEN EDUCATED REGARDING HIS/HER PLAN OF CARE?YES HAS THE PATIENT BEEN EDUCATED REGARDING PAIN, THE RISK FOR PAIN, THE IMPORTANCE OF EFFECTIVE PAIN MANAGEMENT, AND THE PAIN ASSESSMENT PROCESS?YES ADVANCE DIRECTIVE ADVANCE DIRECTIVE DISCUSSED WITH PATIENT:YES PT DOES NOT HAVE HCP AND DECLINES INFORMATION OR ASSISTANCE WITH FORM TODAY. REVIEW OF SYSTEMS CONSTITUTIONAL: ANY RECENT FEVER NO . CHILLS NO . WEIGHT CHANGE OF UNKNOWN REASONS NO . GASTROENTEROLOGY: NEW UNEXPLAINABLE CHANGES IN BOWEL CONTROL NO . CONSTIPATION NO . GENITOURINARY: ANY NEW CHANGE IN BLADDER CONTROL? NO . NEUROLOGY: NEW ONSET DIZZINESS OR NEUROLOGICAL CHANGES NOT MENTIONED NO . NEW NUMBNESS OR PAIN PATTERNS NOT MENTIONED AND PERTINENT TO TODAY'S VISIT NO . CARDIOLOGY: NEW CHEST PRESSURE NO . PATIENT DENIES NO . RESPIRATORY: UNEXPLAINABLE COUGH NO . NEW SHORTNESS OF BREATH NO . VITAL SIGNS WT 206.2 LBS, HT 67 IN, BMI 32.29 INDEX, BP 137/76 MM HG, HR 88 /MIN, RR 18 /MIN, TEMP 98.0 F, OXYGEN SAT % 96%, SAFE IN ENV? (Y/N) YES, NA INITIALS AW 1009T.GABE NOVAK. EXAMINATION GENERAL EXAMINATION: GENERAL AWAKE,ALERT ,PLEASANT . PSYCH AFFECT NORMAL . LUNGS: LUNG GIANG ARE CLEAR TO AUSCULTATION BILATERALLY. GOOD MOVEMENT OF AIR . HEART: S1, S2 IN A REGULAR RATE AND RHYTHM. NO SIGNIFICANT MURMURS, RUBS OR GALLOPS NOTED . LUMBAR: PALPATION: + FOR PAIN OVER L/S SPINE. + FOR PAIN OVER L/S PARASPINALS SLE: POSITIVE OVER LEFT LEG AT 45 DEGREES.. DIAGNOSTIC TESTS REVIEWEDI SPINE 2020. ASSESSMENTS RADICULOPATHY, LUMBOSACRAL REGION - M54.17 (PRIMARY) TREATMENT RADICULOPATHY, LUMBOSACRAL REGION NOTES: CAUDAL EPIDURAL STERIOD INJECTION PRINTED AND REVIEWED PRE PROCEDURE INFORMATION, PATIENT VERBALIZED UNDERSTANDING MOI MORENO PROCEDURE CODES FA211 ESTABILISHED PATIENT [facility] CHARGE DISPOSITION & COMMUNICATION FOLLOW UP POST PROCEDURE (REASON: CAUDAL EPIDURAL STERIOD INJECTION) ELECTRONICALLY SIGNED BY NANCY MUNIZ ON 09/01/2020 AT 12:31 PM EDT DISCLAIMER : THIS IS A VISIT SUMMARY EXTRACTED FROM THE [employer] CHART. IT IS NOT A COPY OF THE [employer] PROGRESS NOTE. KIKAD
== END ==
LOC: M PAIN 10:00
PROVIDERS: ATTEND Nurse Practitioner Family
DX: M54.17 Radiculopathy, lumbosacral region (principal); G89.29 Other chronic pain; J45.909 Unspecified asthma, uncomplicated; Z87.891 Personal history of nicotine dependence; Z88.5 Allergy status to narcotic agent; Z91.013 Allergy to seafood; Z79.899 Other long term (current) drug therapy

== ENCOUNTER → 2020-09-21 | Outpatient (CLI) | payer BC | LOC: M LABSMTC 09:34 | PROVIDERS: ATTEND Anesthesiology | DX: Z20.822 Contact with and (suspected) exposure to COVID-19 (principal) ==

== ENCOUNTER → 2020-09-26 | Outpatient (CLI) | payer BC ==
[~2020-09-26] MED LIST changes: +ISOVUE-M 300 61% 15ML VIAL As Ordered ONE; +LIDOCAINE 1% SDV 30ML VIAL As Ordered ONE; +NORCO, ANEXSIA 5/325MG TABLET (HYDROcodone/ACETAMINOPHEN) As Ordered ONE; +diazePAM 5MG TABLET As Ordered ONE; +methylPREDNISolone SUSP 40MG/ML 1ML VIAL (DEPO MEDROL) As Ordered ONE
--- NOTE | 2020-09-26 12:38 | REP ---
INDICATION: CAUDAL EPIDURAL STEROID INJECTION. COMPARISON: None. TECHNIQUE: Two C-arm views sacrum and coccyx. FINDINGS: A needle is seen in the region of the coccyx. IMPRESSION: 27 seconds fluoroscopy time utilized. <Electronically signed by Anthony Rinaldi > 09/26/20 [id number]
--- NOTE | 2020-09-27 00:31 | ECWPNPC ---
PATIENT NAME: RODNEY GOODWIN : 1960 GENDER: FEMALE VISIT DATE: 09/26/2020 DISCHARGE DATE: 09/26/20 1120 VISIT LOCKED DATE TIME: PHYSICIAN: JANE EASON MD PHYSICIAN PAGER NO: ACTIVE RESOURCE: JANE EASON MD REASON FOR APPOINTMENT 1. CAUDAL EPIDURAL STEROID INJECTION HISTORY OF PRESENT ILLNESS GENERAL: -. -. FALL RISK SCREENING: SCREENING : NO FALLS REPORTED IN THE LAST YEAR. PAIN SCREENING: PATIENT HAS A COMPLAINT OF ACUTE OR CHRONIC PAIN :YES LOCATION OF PAIN:LOW BACK, LEG(S), THIGH(S), KNEES, FEET, ANKLE(S) INTENSITY OF PAIN (SCALE OF 1 TO 10):9 WHAT DOES YOUR PAIN FEEL LIKE:SHARP, SHOOTING, OTHER "PULSATING" DURATION:CONTINOUS, AWAKENS FROM SLEEP PAIN IS INCREASED BY:ACTIVITIES, PROLONGED STANDING, OTHERS PROLONGED SITTING, ADLS PAIN IS DECREASED BY:USE OF PAIN MEDICATIONS PLAN/GOALS/TREATMENT/INTERVENTION/FOLLOW UP:SEE PLAN NURSING NOTE: -. PAIN CENTER INTAKE QUESTIONS: DO YOU HAVE A HISTORY OF MRSA? :NO DO YOU TAKE A BLOOD THINNERS? :NO DO YOU HAVE ANY BLEEDING DISORDERS? :NO ANY NEW NUMBNESS OR WEAKNESS IN YOUR LEGS OR ARMS? :NO ANY PACEMAKER,DEFIBRILLATOR, OR DORSAL COLUMN STIMULATOR? :NO DO YOU HAVE ANY RASHES OR OPEN SORES? :NO ARE YOU ALLERGIC TO IV DYE? :NO ARE YOU DIABETIC? :NO ANY NEW PROBLEMS WITH YOUR MEDICATIONS? :NO HAVE YOU RECEIVED A VACCINE IN THE PAST 30 DAYS? :NO DO YOU PLAN TO RECEIVE A VACCINE IN THE NEXT 21 DAYS? :NO DO YOU TAKE ANY IMMUNOSUPPRESSIVE MEDICATIONS? :NO ANY HISTORY OF SEIZURES? :NO ANY HISTORY OF CARDIAC ISSUES OR EVENTS? :NO DO YOU HAVE ANY KIDNEY OR LIVER DISEASE? :NO DO YOU HAVE SLEEP APNEA? :NO ANY RECENT HEAD INJURY? :NO DO YOU HAVE ANY NEW INFECTIONS? :NO IS THERE A CHANCE YOU COULD BE ? :N/A ARE YOU BREAST FEEDING? :N/A WHEN DID YOU LAST EAT? : ----LAST NIGHT 1800 WHEN DID YOU LAST DRINK? : -----THIS MORNING BRUSHED "MY TEETH" WHAT DID YOU LAST DRINK? : ------WATER NAME OF PERSON DRIVING YOU HOME? : THU (PARTNER) DO YOU HAVE ANY OTHER QUESTIONS OR CONCERNS? : NO CURRENT MEDICATIONS TAKING TAMOXIFEN CITRATE 10 MG TABLET 1 TABLET ORALLY DAILY TAKING VENTOLIN HFA 108 (90 BASE) MCG/ACT AEROSOL SOLUTION 2 PUFFS INHALATION 4 TIMES A DAY NEEDED TAKING GABAPENTIN 100 MG CAPSULE 1 CAPSULE ORALLY ONCE A DAY TAKING LASIX 20 MG TABLET 1 TABLET ORALLY ONCE A DAY TAKING LIPITOR 40 MG TABLET 1 TABLET ORALLY ONCE A DAY TAKING SYMBICORT 80-4.5 MCG/ACT AEROSOL 2 PUFFS INHALATION PURA TWICE A DAY TAKING NASONEX 50 MCG/ACT SUSPENSION 2 SPRAYS IN EACH NOSTRIL NASALLY ONCE A DAY TAKING LISINOPRIL 20 MG TABLET 1 TABLET ORALLY ONCE A DAY TAKING MOBIC 15 MG TABLET 1 TABLET ORALLY ONCE A DAY TAKING AMLODIPINE BESYLATE 10 MG TABLET 1 TABLET ORALLY ONCE A DAY TAKING METOPROLOL SUCCINATE ER 25 MG TABLET EXTENDED RELEASE 24 HOUR 1 TABLET ORALLY ONCE A DAY TAKING HYDROCODONE-ACETAMINOPHEN 5-325 MG TABLET 1 TABLET NEEDED ORALLY Q8H PRN MDD3 NOT-TAKING LORATADINE 10 MG TABLET 1 TABLET ORALLY ONCE A DAY NOT-TAKING OMEPRAZOLE 20 MG CAPSULE DELAYED RELEASE 1 CAPSULE 30 MINUTES BEFORE MORNING MEAL ORALLY ONCE A DAY NOT-TAKING NORCO 5-325 MG TABLET 1 TABLET NEEDED ORALLY EVERY 8 HOURS WHEN NECESSARY FOR PAIN MDD 2 MEDICATION LIST REVIEWED AND RECONCILED WITH THE PATIENT PAST MEDICAL HISTORY HYPERTENSION ASTHMA HYPERLIPIDEMIA TENOSYNOVITIS PERIMENOPAUSE H/O HSV STRESS TEST DONE BY DR RODRIGUES IN 2015 NORMAL BREAST CA BASAL CELL CARCINOMA 2014 CHRONIC LOW BACK PAIN SPINAL STENOSIS COLONOSCOPY 03/2020-5 YR FOLLOW UP RECOMMENDED PNEUMOVAX, TDAP, COVID-19 VACCINATION 2020-UTD FORMER SMOKER SHINGLES 07/17/2020 2ND: 4 MONTH AWAY ALLERGIES SHRIMP: HIVES, RASH - ALLERGY ACETAMINOPHEN-CODEINE #3: CHEST PAINS - ALLERGY SURGICAL HISTORY HYSTERECTOMY 1994 CHOLECYSTECTOMY 2009 LASIK 2000 HEART CATHETERIZATION 07/2009 BASAL CELL CA, LOWER L NOSTRIL (EXCISED) FOLLOWED BY DR RICKS IN [place] 10/2013 COLONOSCOPY 2014, 201105/15/2011 RIGHT KNEE ARTHOSCOPY 08/2015 LUMPECTOMY-LEFT BREAST 2018 RIGHT KNEE TOTAL REPLACEMENT 12/2018 LAMINECTOMY LUMBAR-UPSTATE 12/2019 COLONOSCOPY 03/2020 SOCIAL HISTORY GENERAL: TOBACCO USE ARE YOU A:FORMER SMOKER HOW LONG HAS IT BEEN SINCE YOU LAST SMOKED?1-5 YEARS QUIT 11/24/2018 MALES, AGE 65-75 WITH 5 PACK SMOKING HISTORY (100 CIGARETTES LIFETIME) FORMER 01/11/2020 SMOKING CESSATION INFORMATION GIVEN01/11/2019 VAPORNO E-CIGARETTENO LATEX QUESTIONNAIRE LATEX ALLERGY : HAVE YOU EVER DEVELOPED ANY TYPE OF REACTION AFTER HANDLING LATEX PRODUCTS SUCH RUBBER GLOVES, CONDOMS, DIAPHRAGMS, BALLOONS, SOCKS, OR UNDERWEAR?NO LATEX ALLERGY : HAVE YOU EVER DEVELOPED ANY TYPE OF REACTION DURING OR AFTER DENTAL APPOINTMENT, VAGINAL/RECTAL EXAMINATION, SURGICAL PROCEDURE, OR ANY OTHER EXPOSURE?NO LATEX RISK : HAVE YOU EVER HAD ANY DIFFICULTY BREATHING OR HIVES AFTER EATING OR HANDLING ANY FRUITS, OR VEGETABLES; SUCH KIWI, BANANAS, STONE FRUITS, OR CHESTNUTSNO LATEX RISK : DO YOU HAVE A PREVIOUS PERSONAL HISTORY OF MORE THAN NINE SURGERIES, SPINA BIFIDA, OR REPEATED CATHERIZATIONS? YES - PLEASE INDICATE : > 9 SURGERIES LATEX RISK : ARE YOU FREQUENTLY EXPOSED TO LATEX PRODUCTS IN YOUR OCCUPATION?YES PT STATES SHE USES LATEX PRODUCTS AT WORK DATE ASKED : 09/25/2020 ALCOHOL USE: NO. LUNG CANCER SCREENING SMOKING STATUS:FORMER SMOKER IS THE PATIENT BETWEEN THE AGE OF 54 AND 76?YES HAVE YOU QUIT SMOKING WITHIN THE PAST 15 YEARS?YES BMI CARE GOAL FOLLOW-UP ABOVE NORMAL BMI FOLLOW-UPDIETARY NEEDS EDUCATION ALCOHOL SCREENING DID YOU HAVE A DRINK CONTAINING ALCOHOL IN THE PAST YEAR?YES HOW OFTEN DID YOU HAVE A DRINK CONTAINING ALCOHOL IN THE PAST YEAR?MONTHLY OR LESS (1 POINT) HOW MANY DRINKS DID YOU HAVE ON A TYPICAL DAY WHEN YOU WERE DRINKING IN THE PAST YEAR?1 OR 2 (0 POINTS) HOW OFTEN DID YOU HAVE SIX OR MORE DRINKS ON ONE OCCASION IN THE PAST YEAR?NEVER (0 POINTS) POINTS1 INTERPRETATIONNEGATIVE RECREATIONAL DRUG USE DRUG USE?NO CAFFEINE 2/DAY. SEXUAL HX HAD SEX IN THE LAST 12 MONTHS (VAGINAL, ORAL, OR ANAL)?YES WITHMEN ONLY USE PROTECTION?NO HAVE YOU EVER HAD AN STD?NO HIV / HEP-C SCREENING HIV TEST OFFERED TO PATIENT:YES DATE OFFERED:01/11/2019 CONSENT SIGNED TEST ACCEPTED:NO REASON:PATIENT DECLINED BROCHURE PROVIDED TO PATIENTNO -DECLINED HEP-C TEST OFFERED TO PATIENT:YES DATE OFFERED:01/11/2019 TEST ACCEPTED:NO CONSENT SIGNED REASON:PATIENT DECLINED JUDAISM NO LATTER-DAY BELIEFS THAT WOULD IMPACT HEALTH CARE. LANGUAGE SUDANESE. 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 DIET: NO HX EATING DISORDERS. EXERCISE: WALKING AND VERY ACTIVE THROUGH WORK AT [employer]. MARITAL STATUS: . OTHERS AT HOME: LIVES WITH HER 1 CAT, 2 DOGS; BOYFRIEND. - HAS THE PATIENT BEEN EDUCATED REGARDING HIS/HER PLAN OF CARE?YES HAS THE PATIENT BEEN EDUCATED REGARDING PAIN, THE RISK FOR PAIN, THE IMPORTANCE OF EFFECTIVE PAIN MANAGEMENT, AND THE PAIN ASSESSMENT PROCESS?YES ADVANCE DIRECTIVE ADVANCE DIRECTIVE DISCUSSED WITH PATIENT:YES PT DOES NOT HAVE HCP AND DECLINES INFORMATION OR ASSISTANCE WITH FORM TODAY. HOSPITALIZATION/MAJOR DIAGNOSTIC PROCEDURE SURGERY CHEST PAIN VITAL SIGNS WT 202.6 LBS, WT-KG 91.9 KG, HT 67 IN, BMI 31.73 INDEX, BP 147/74 MM HG, HR 84 /MIN, RR 18 /MIN, TEMP 98.1 F, OXYGEN SAT % 98%, SAFE IN ENV? (Y/N) YES, NA INITIALS SC 09:24, REVIEWED BY: CARLOS. EXAMINATION GENERAL: A HISTORY AND PHYSICAL EXAM ON THE PATIENT WAS DONE ON 08/31/2020(DATE OF ORIGINAL ASSESSMENT) IN PREPARATION OF SURGERY/PROCEDURE. I HAVE NOW REASSESSED THIS PATIENT'S HEALTH STATUS AND PERFORMED AN UPDATED EXAM TODAY. ALL CHANGES IN THE PATIENT'S HISTORY, PHYSICAL EXAM, PRE-EXISTING CONDITONS, AND INDICATIONS/CONTRAINDICATIONS TO THE PLANNED PROCEDURE AND ANESTHESIA ARE DOCUMENTED AND EVALUATED BELOW. I ATTEST TO THE ADEQUACY AND APPROPRIATENESS OF MY ASSESSMENT, AND CONFIRM THE NECESSITY FOR THE PLANNED PROCEDURE. THE PATIENT IS ALERT, ORIENTED TIMES THREE AND COOPERATIVE. LUNGS ARE CLEAR TO AUSCULTATION. HEART SHOWS REGULAR RHYTHM, NO MURMURS AND NO GALLOPS. ASSESSMENTS LUMBAR POST-LAMINECTOMY SYNDROME - M96.1 SACROILIITIS, NOT ELSEWHERE CLASSIFIED - M46.1 TREATMENT LUMBAR POST-LAMINECTOMY SYNDROME [facility] FLUORO GUIDE SPINE INJECTION (PAIN)[id number] COMPLETION OF PROCEDURAL VISIT WHEN MEETS [id number],KAREN 09/26/2020 11:09:48 AM > CRITERIA MET SACROILIITIS, NOT ELSEWHERE CLASSIFIED [facility] CT PELVIS WITHOUT [id number],KRISTAL 09/26/2020 10:03:32 AM > PAYING SPECIAL ATTENTION TO SACROILIAC JOINTS OTHERS NOTES: 09/25/20 1646 PAT COMPLETED. Evie ARROYO AUTOMOBILE APPRAISER. PROCEDURES PAIN NURSING RECORD PROCEDURE IN ROOM 1030, PHYSICIAN IN ROOM 1035, START 1041, FINISH 1051, PHYSICIAN OUT OF ROOM 1055, OUT OF ROOM 1101, ECG NORMAL SINUS, PATIENT SHIELDED YES, SAFETY STRAP YES, PREP CHLOROPREP Tawana FOX RN, DRESSING TEGADERM LOC: 1. ALERT, ORIENTED MITA POLANCO 09/26/2020 10:43:15 AM > RESP: 1. REGULAR, NO DYSPNEA MITA POLANCO 09/26/2020 10:43:20 AM > COLOR: 1. PINK SHERRIMITA 09/26/2020 10:43:25 AM > SKIN: 1. WARM, DRY SHERRIMITA 09/26/2020 10:43:31 AM > POSITION: 1. PRONE SHERRIMITA 09/26/2020 10:43:36 AM > VITALS: 1030 147/94 70 97% ON RA 18 RESP KGHEIDIO RN 1045 114K6/76 71 98% ON RA 18 RESP KGHEIDIO RN 1052 161/86 81 96% ON RA 18 RESP POST PROCEDURE VS 157/88 81 96% ON RA AND RESP 18 @ 1103 NOTES Wilbur POLANCO RN COMPLETION OF PROCEDURE APPOINTMENT: POST PAIN 0, DRESSING SITE DRY AND INTACT, IV N/A, GAIT STEADY, TEACHING COMPLETED, PATIENT ACKNOWLEDGES UNDERSTANDING YES, PROCEDURE APPOINTMENT COMPLETED AT 1110 PN CAUDAL EPIDURALS PRE PROCEDURE DIAGNOSIS LUMBAR POST LAMINECTOMY PAIN SYNDROME POST PROCEDURE DIAGNOSIS LUMBAR POST LAMINECTOMY PAIN SYNDROME PROCEDURE CAUDAL EPIDURAL STEROID INJECTION SURGEON DR. JANE EASON CAPTAIN/CHECK AIRMAN NONE ANESTHESIA LOCAL PRE PROCEDURE NOTE THE PATIENT HAS HISTORY OF CHRONIC LOW BACK PAIN. I EVALUATED THE PATIENT AND REVIEWED THE CHART. I WENT OVER THE RISKS, ALTERNATIVES, AND BENEFITS ASSOCIATED WITH THIS PROCEDURE. THE PATIENT WOULD LIKE TO PROCEED AND GIVE CONSENT TO PERFORMED THE PROCEDURE. THE PATIENT DENIES UNEXPLAINABLE WEIGHT LOSS, FEVER, CHILLS, OR NEW CHANGES IN URINARY OR BOWEL CONTROL. THE PATIENT IS COVID-19 NEGATIVE DESCRIPTION OF PROCEDURE THE PATIENT WAS BROUGHT TO THE PROCEDURE ROOM AND PLACED IN THE PRONE POSITION. THE LUMBOSACRAL AREA WAS CLEANED WITH BETADINE SOLUTION AND DRAPED ASEPTICALLY. THE PROCEDURE WAS DONE UNDER STERILE CONDITIONS. A TIMEOUT WAS PERFORMED WHERE THE CONSENTED SITE WAS VERIFIED WITH EVERYONE IN THE ROOM. UNDER FLUOROSCOPIC GUIDANCE, THE TARGET POINT WAS SELECTED AT THE EPIDURAL SPACE BELOW THE SACROCOCCYGEAL LIGAMENT. I CONFIRMED AGAIN THE SITE OF TARGET. LIDOCAINE 0.5% WAS USE TO NUMB THE SKIN AND THE SUBCUTANEOUS TISSUE BELOW IT. SPINAL NEEDLE, 22-GAUGE 3.5 INCH, WAS ADVANCED UNDER FLUOROSCOPIC GUIDANCE AND FOLLOWING PATIENT FEEDBACK UNTIL THE EPIDURAL SPACE WAS REACHED BY THE LOSS OF RESISTANCE TECHNIQUE. ISOVUE M DYE 30%, 0.25 ML, WAS INJECTED SHOWING ADEQUATE SPREAD OF THE DYE. THEN, A SOLUTION OF 6 ML OF NORMAL SALINE WITH DEPO-MEDROL 80 MG WAS INJECTED SLOWLY FOLLOWING THE PATIENT FEEDBACK. THERE WAS NO EVIDENCE OF BLOOD, PARESTHESIA OR CEREBROSPINAL FLUID DURING THE PROCEDURE. THE PATIENT WAS SENT TO THE RECOVERY ROOM. THE PATIENT WAS MOVING THE EXTREMITIES AND DOING WELL. THERE WAS NO COMPLICATION DURING THE PROCEDURE. ESTIMATED BLOOD LOSS LESS THAN 5 ML. FLUOROSCOPY TIME WAS 26 SECONDS POST PROCEDURE NOTE MRI OF 05/29/2020 IS SHOWING AT L4-L5 A LAMINECTOMY WITH DISCECTOMY AND FUSION. THE PATIENT HAS DONE SACROILIAC JOINT BLOCKS THAT HAS HELPED HER FOR 1-2 WEEKS. THE PATIENT MAY BE A CANDIDATE FOR A SACROILIAC JOINT FUSION. WE WILL TALK TO HER MORE ABOUT THIS IN THE FUTURE. I WOULD LIKE TO ORDER A PELVIC CT SCAN, PAYING SPECIAL ATTENTION TO THE SACROILIAC JOINT. DEPENDING ON THE RESULTS, CONSIDER A LEFT L4-L5, L5-S1 TRANSFORAMINAL EPIDRUAL. THE PATIENT WILL BE SEEN IN A FOLLOW UP IN THE NEXT FEW WEEKS. I AM LOOKING FOR LONG LASTING RELIEF FOR THE PATIENT WITH THIS INTERVENTION. INSTRUCTIONS WERE GIVEN, QUESTIONS WERE ANSWERED, AND THE PATIENT EXPRESSED UNDERSTANDING AND AGREES WITH THE PLAN. I, MILTON CHAMPION, DOCUMENTED THE ABOVE INFORMATION ACTING A SCRIBE FOR DR. EASON. I HAVE REVIEWED THE ABOVE DOCUMENT, WRITTEN BY MILTON CHAMPION, LOT ASSOCIATE, AND I VERIFY THAT IT IS ACCURATE PROCEDURE CODES 72341 LUMBAR/SACRAL W/ IMAGING DISPOSITION & COMMUNICATION FOLLOW UP POST PROCEDURE (REASON: REQUEST AUTH FOR PELVIC CT) ELECTRONICALLY SIGNED BY JANE EASON MD, MD ON 09/26/2020 AT 03:23 PM EDT DISCLAIMER : THIS IS A VISIT SUMMARY EXTRACTED FROM THE [employer] CHART. IT IS NOT A COPY OF THE [employer] PROGRESS NOTE. JAVIER
== END ==
LOC: M PAIN 09:20
PROVIDERS: ATTEND Anesthesiology
DX: M96.1 Postlaminectomy syndrome, not elsewhere classified (principal); M46.1 Sacroiliitis, not elsewhere classified; J45.909 Unspecified asthma, uncomplicated; Z87.891 Personal history of nicotine dependence; Z88.6 Allergy status to analgesic agent; Z91.013 Allergy to seafood; Z79.899 Other long term (current) drug therapy
CPT/HCPCS: 62323; J1030; Q9967

== ENCOUNTER → 2020-11-06 | Outpatient (CLI) | payer BC ==
[~2020-11-06] MED LIST changes: -ISOVUE-M 300 61% 15ML VIAL As Ordered ONE; -LIDOCAINE 1% SDV 30ML VIAL As Ordered ONE; -NORCO, ANEXSIA 5/325MG TABLET (HYDROcodone/ACETAMINOPHEN) As Ordered ONE; -diazePAM 5MG TABLET As Ordered ONE; -methylPREDNISolone SUSP 40MG/ML 1ML VIAL (DEPO MEDROL) As Ordered ONE
--- NOTE | 2020-11-08 04:42 | REP ---
INDICATION: OSTEOARTHIRITIS AND ROTATOR CUFF TEAR/RUPTURE. COMPARISON: None. TECHNIQUE: Neutral, internal rotation, external rotation, axillary and Y-view of the left shoulder FINDINGS: Cortical irregularity at the acromioclavicular joint and calcified glenoid rim noted. The humeral head is normal. The subacromial space is within normal limits. No periarticular calcifications or loose bodies are identified. There is no evidence for acute or healed injury. IMPRESSION: Mild relatively age related arthritic changes. <Electronically signed by Deyvi Ham > 11/08/20 9739
== END ==
LOC: M SOG 10:44
PROVIDERS: ATTEND Orthopaedic Surgery Sports Medicine
DX: M19.012 Primary osteoarthritis, left shoulder (principal); M75.122 Complete rotator cuff tear or rupture of left shoulder, not specified as traumatic

== ENCOUNTER → 2020-11-13 | Outpatient (CLI) | payer BC ==
--- NOTE | 2020-11-13 09:35 | REP ---
INDICATION: COMPLETE ROTATOR-CUFF TEAR/RUPTURE OF LEFT SHOULDER,. COMPARISON: Radiographs 11/06/2020. TECHNIQUE: Coronal oblique T1, T2 fat sat, sagittal oblique T2 fat sat, axial T2 fat sat, gradient echo. FINDINGS: Rotator cuff: There is a complete tear of the supraspinatus tendon. The musculotendinous junction is retracted approximately 2.5 cm. The other rotator cuff tendons appear intact. Acromioclavicular joint: There are mild hypertrophic degenerative changes of the acromioclavicular joint. Acromion: Type 2 Biceps Tendon: In bicipital groove, mild surrounding fluid. Hill Sach's deformity: None. Deltoid muscle: No abnormal signal. Biceps labral complex: I suspect a linear tear at the base of the biceps labral complex. Labrum: I suspect a tear of the superior labrum. Cartilage: There is mild diffuse chondromalacia at the glenohumeral joint. Bone marrow: There is mild subchondral marrow edema along the acromioclavicular joint. Joint fluid: There is a moderate joint effusion extending into the subacromial/subdeltoid bursae. IMPRESSION: Complete tear supraspinatus tendon with retraction of the musculotendinous junction approximately 2.5 cm. Mild hypertrophic degenerative changes acromioclavicular joint. I suspect a tear at the base of the biceps labral complex and adjacent superior labrum. Moderate joint effusion. <Electronically signed by Anthony Rinaldi > 11/13/20 0931
== END ==
LOC: M PLAIMG 07:52
PROVIDERS: ATTEND Orthopaedic Surgery Sports Medicine
DX: M75.122 Complete rotator cuff tear or rupture of left shoulder, not specified as traumatic (principal)

== ENCOUNTER → 2020-11-17 | Outpatient (CLI) | payer BC | LOC: M PAIN 09:00 | PROVIDERS: ATTEND Anesthesiology | DX: M96.1 Postlaminectomy syndrome, not elsewhere classified (principal); M51.16 Intervertebral disc disorders with radiculopathy, lumbar region; M46.1 Sacroiliitis, not elsewhere classified; J45.909 Unspecified asthma, uncomplicated; Z87.891 Personal history of nicotine dependence; Z88.5 Allergy status to narcotic agent; Z91.013 Allergy to seafood; Z79.899 Other long term (current) drug therapy ==

== ENCOUNTER → 2020-12-11 | Outpatient (CLI) | payer BC ==
--- NOTE | 2020-12-13 05:54 | REP ---
INDICATION: ABNORMAL FINDING OF LUNG FIELD COMPARISON: 10/25/2019 . TECHNIQUE: Axial noncontrast images from the thoracic inlet to the upper abdomen with coronal and sagittal reformations. This CT examination was performed using the following dose reduction techniques: Automated exposure control, adjustment of mA and/or kv according to the patient's size, and use of iterative reconstruction technique. FINDINGS: The bilateral lung faira are well aerated, relatively symmetric and essentially clear. Minimal chronic appearing linear scarring noted. Small 6 mm nodule in the anterior right lower lobe (image 60) again remains stable through 2018. No new consolidation, suspicious nodule or mass. No effusion. No pneumothorax. Tracheobronchial tree is patent. No axillary, hilar, or mediastinal adenopathy. Thoracic aorta, pulmonary vasculature, and heart/pericardium are normal. A small hiatal hernia at the gastroesophageal junction is suggested. Limited upper abdomen demonstrates stable left adrenal adenoma as compared with CT of the abdomen dated 01/13/2019. Musculoskeletal structures are within normal limits. IMPRESSION: 1. Solitary 6 mm nodule in the right lower lobe remains stable through 2018. 2. No acute mediastinal or pleuroparenchymal process appreciated. <Electronically signed by Deyvi Ham > 12/13/20 2624
== END ==
LOC: M PLAIMG 14:40
PROVIDERS: ATTEND Internal Medicine Pulmonary Disease
DX: R91.8 Other nonspecific abnormal finding of lung field (principal)

== ENCOUNTER → 2020-12-28 | Outpatient (CLI) | payer BC | LOC: M LABSMTC 09:21 | PROVIDERS: ATTEND Anesthesiology | DX: Z01.812 Encounter for preprocedural laboratory examination (principal); Z20.822 Contact with and (suspected) exposure to COVID-19 ==

== ENCOUNTER → 2021-01-02 | Outpatient (CLI) | payer BC ==
[~2021-01-02] MED LIST changes: +BUPIVACAINE HCL 0.25% 30ML VIAL As Ordered ONE; +ISOVUE-M 300 61% 15ML VIAL As Ordered ONE; +LIDOCAINE 1% SDV 30ML VIAL As Ordered ONE; +NORCO, ANEXSIA 5/325MG TABLET (HYDROcodone/ACETAMINOPHEN) As Ordered ONE; +dexameTHASONE 10MG/1ML VIAL PRES.FREE (J1100 PER 1MG) As Ordered ONE; +diazePAM 5MG TABLET As Ordered ONE
--- NOTE | 2021-01-02 17:04 | REP ---
INDICATION: LEFT TRANSFORAMINAL EPIDURAL STEROID INJECTION L4-L5, L5-S1. COMPARISON: None. TECHNIQUE: Multiple C-arm views lower lumbar spine. FINDINGS: [place] are seen along the lower lumbar spine. Posterior fusion hardware is seen at L4-5 as well as a disc spacer at that level. A small amount of contrast is injected. IMPRESSION: 86 seconds fluoroscopy time utilized. <Electronically signed by Anthony Rinaldi > 01/02/21 [id number]
== END ==
LOC: M PAIN 11:40
PROVIDERS: ATTEND Anesthesiology
DX: M51.16 Intervertebral disc disorders with radiculopathy, lumbar region (principal); M51.17 Intervertebral disc disorders with radiculopathy, lumbosacral region; J45.909 Unspecified asthma, uncomplicated; Z87.891 Personal history of nicotine dependence; Z88.5 Allergy status to narcotic agent; Z91.013 Allergy to seafood; Z79.899 Other long term (current) drug therapy
CPT/HCPCS: 64483; 64484; J1100; Q9967

== ENCOUNTER → 2021-01-22 | Outpatient (REF) | payer BC ==
[~2021-01-22] MED LIST changes: -BUPIVACAINE HCL 0.25% 30ML VIAL As Ordered ONE; -ISOVUE-M 300 61% 15ML VIAL As Ordered ONE; -LIDOCAINE 1% SDV 30ML VIAL As Ordered ONE; -NORCO, ANEXSIA 5/325MG TABLET (HYDROcodone/ACETAMINOPHEN) As Ordered ONE; -dexameTHASONE 10MG/1ML VIAL PRES.FREE (J1100 PER 1MG) As Ordered ONE; -diazePAM 5MG TABLET As Ordered ONE
[2021-01-22 16:47] LABS: BASO % 0.5 % (0.0-1.0); EOS # 0.1 10^3/uL (0.0-0.5); EOS % 1.7 % (0.0-3.0); HEMATOCRIT 41.4 % (36.0-47.0); HEMOGLOBIN 13.9 g/dl (12.0-15.5); LYMPH # 1.5 10^3/uL (1.5-5.0); LYMPH % 19.9 % (24.0-44.0); MEAN CORPUSCULAR HEMOGLOBIN 32.7 pg (27.0-33.0); MEAN CORPUSCULAR HGB CONC 33.6 g/dl (32.0-36.5); MEAN CORPUSCULAR VOLUME 97.4 fl (80.0-96.0); MONO # 0.4 10^3/uL (0.0-0.8); MONO % 5.9 % (2.0-8.0); NEUTROPHILS # 5.4 10^3/uL (1.5-8.5); NEUTROPHILS % 71.6 % (36.0-66.0); PLATELET COUNT, AUTOMATED 287 10^3/uL (150-450); RED BLOOD COUNT 4.25 10^6/uL (4.00-5.40); WHITE BLOOD COUNT 7.5 10^3/uL (4.0-10.0)
[2021-01-22 17:05] LABS: ALBUMIN 3.3 GM/DL (3.2-5.2); ALT/SGPT 35 U/L (12-78); BILIRUBIN,TOTAL 0.5 MG/DL (0.2-1.0); BLOOD UREA NITROGEN 13 MG/DL (7-18); CALCIUM LEVEL 8.6 MG/DL (8.8-10.2); CARBON DIOXIDE LEVEL 26 MEQ/L (21-32); CHLORIDE LEVEL 111 MEQ/L (98-107); CHOLESTEROL LEVEL 155 MG/DL (<200); CHOLESTEROL RISK RATIO 2.767 (<5); CREATININE FOR GFR 0.74 MG/DL (0.55-1.30); GLOMERULAR FILTRATION RATE > 60.0 (>45); GLUCOSE, FASTING 84 MG/DL (70-100); HDL CHOLESTEROL 56 MG/DL (>40); LDL CHOLESTEROL 76 MG/DL (<100); NON-HDL-C 99 MG/DL; POTASSIUM SERUM 4.5 MEQ/L (3.5-5.1); SODIUM LEVEL 142 MEQ/L (136-145); TOTAL PROTEIN 6.6 GM/DL (6.4-8.2); TRIGLYCERIDES LEVEL 117 MG/DL (<150)
[2021-01-22 17:08] LABS: HEMOGLOBIN A1c 5.5 %
[2021-01-23 08:47] LABS: TOTAL 25(OH) VITAMIN D 27.5 NG/ML (30.0-100.0)
== END ==
LOC: M SFHCCAPE 07:27
PROVIDERS: ATTEND Physician Assistant
DX: I10 Essential (primary) hypertension (principal)

== ENCOUNTER → 2021-02-22 | Outpatient (CLI) | payer BC | LOC: M WHC 12:45 | PROVIDERS: ATTEND Physician Assistant | DX: R92.2 Inconclusive mammogram (principal) ==

== ENCOUNTER → 2021-02-22 | Outpatient (CLI) | payer BC ==
--- NOTE | 2021-02-22 09:33 | REP ---
INDICATION: RT SHOULDER IMPINGEMENT. COMPARISON: 03/26/2013 TECHNIQUE: Multiple views FINDINGS: Once again, there is AC joint DJD which has increased slightly from the prior exam. The glenohumeral relationship is again seen to be within normal limits. There is no acute fracture, dislocation, or subluxation. IMPRESSION: AC joint DJD. No acute osseous abnormality. <Electronically signed by Daniel Maki > 02/22/21 0940
== END ==
LOC: M SOG 08:51
PROVIDERS: ATTEND Orthopaedic Surgery Sports Medicine
DX: M19.011 Primary osteoarthritis, right shoulder (principal); M75.41 Impingement syndrome of right shoulder

== ENCOUNTER → 2021-03-23 | Outpatient (CLI) | payer BC | LOC: M PLAIMG 08:29 | PROVIDERS: ATTEND Orthopaedic Surgery Sports Medicine | DX: M75.41 Impingement syndrome of right shoulder (principal); M75.51 Bursitis of right shoulder; S46.011A Strain of muscle(s) and tendon(s) of the rotator cuff of right shoulder, initial encounter; S46.811A Strain of other muscles, fascia and tendons at shoulder and upper arm level, right arm, initial encounter; X58.XXXA Exposure to other specified factors, initial encounter; Y93.9 Activity, unspecified ==

== ENCOUNTER → 2021-04-11 | Outpatient (REF) | payer BC ==
[2021-04-11 15:59] LABS: BLOOD UREA NITROGEN 14 MG/DL (7-18); CALCIUM LEVEL 9.6 MG/DL (8.8-10.2); CARBON DIOXIDE LEVEL 25 MEQ/L (21-32); CHLORIDE LEVEL 108 MEQ/L (98-107); CREATININE FOR GFR 0.75 MG/DL (0.55-1.30); GLOMERULAR FILTRATION RATE > 60.0 (>45); GLUCOSE, FASTING 93 MG/DL (70-100); POTASSIUM SERUM 4.4 MEQ/L (3.5-5.1); SODIUM LEVEL 141 MEQ/L (136-145)
== END ==
LOC: M LABDRWCV 15:39
PROVIDERS: ATTEND Nurse Practitioner
DX: Z12.39 Encounter for other screening for malignant neoplasm of breast (principal); Z85.3 Personal history of malignant neoplasm of breast

== ENCOUNTER → 2021-04-11 | Outpatient (REF) | payer BC ==
[2021-04-11 16:03] LABS: ALBUMIN 3.5 GM/DL (3.2-5.2); ALT/SGPT 29 U/L (12-78); BILIRUBIN,TOTAL 0.7 MG/DL (0.2-1.0); BLOOD UREA NITROGEN 14 MG/DL (7-18); CALCIUM LEVEL 9.4 MG/DL (8.8-10.2); CARBON DIOXIDE LEVEL 26 MEQ/L (21-32); CHLORIDE LEVEL 108 MEQ/L (98-107); CHOLESTEROL LEVEL 163 MG/DL (<200); CREATININE FOR GFR 0.71 MG/DL (0.55-1.30); GLOMERULAR FILTRATION RATE > 60.0 (>45); GLUCOSE, FASTING 92 MG/DL (70-100); HDL CHOLESTEROL 56 MG/DL (>40); LDL CHOLESTEROL 78 MG/DL (<100); NON-HDL-C 107 MG/DL; POTASSIUM SERUM 4.4 MEQ/L (3.5-5.1); SODIUM LEVEL 142 MEQ/L (136-145); TOTAL PROTEIN 6.6 GM/DL (6.4-8.2); TRIGLYCERIDES LEVEL 144 MG/DL (<150)
[2021-04-11 17:08] LABS: TOTAL 25(OH) VITAMIN D 31.6 NG/ML (30.0-100.0)
== END ==
LOC: M SFHCCAPE 07:28
PROVIDERS: ATTEND Physician Assistant
DX: E55.9 Vitamin D deficiency, unspecified (principal); I10 Essential (primary) hypertension; E78.5 Hyperlipidemia, unspecified

== ENCOUNTER → 2021-04-16 | Outpatient (CLI) | payer BC ==
[~2021-04-16] MED LIST changes: +PROHANCE 279.3MG/ML 15ML VIAL ONE; +PROHANCE 279.3MG/ML 5ML VIAL ONE
== END ==
LOC: M PLAIMG 10:28
PROVIDERS: ATTEND Nurse Practitioner
DX: Z12.31 Encounter for screening mammogram for malignant neoplasm of breast (principal); N63.11 Unspecified lump in the right breast, upper outer quadrant
CPT/HCPCS: A9576; C8908

== ENCOUNTER → 2021-04-27 | Outpatient (CLI) | payer BC ==
[~2021-04-27] MED LIST changes: -PROHANCE 279.3MG/ML 15ML VIAL ONE; -PROHANCE 279.3MG/ML 5ML VIAL ONE
== END ==
LOC: M WHC 09:09
PROVIDERS: ATTEND Physician Assistant
DX: Z13.820 Encounter for screening for osteoporosis (principal)

== ENCOUNTER → 2021-05-09 | Outpatient (REF) | payer BC ==
[~2021-05-09] MED LIST changes: +LISI20TA33 PO; +METO1TAB7 PO; +MOBI15TA PO; -SYMB80INH; +SYMB80INH INH; -TAMO20TA8; +TAMO20TA8 PO; +VITA200031 PO
[2021-05-09 11:54] LABS: BASO % 0.7 % (0.0-1.0); EOS # 0.1 10^3/uL (0.0-0.5); HEMATOCRIT 39.9 % (36.0-47.0); HEMOGLOBIN 13.8 g/dl (12.0-15.5); LYMPH # 1.5 10^3/uL (1.5-5.0); LYMPH % 24.6 % (24.0-44.0); MEAN CORPUSCULAR HEMOGLOBIN 32.3 pg (27.0-33.0); MEAN CORPUSCULAR HGB CONC 34.6 g/dl (32.0-36.5); MEAN CORPUSCULAR VOLUME 93.4 fl (80.0-96.0); MONO # 0.4 10^3/uL (0.0-0.8); MONO % 7.1 % (2.0-8.0); NEUTROPHILS # 3.9 10^3/uL (1.5-8.5); NEUTROPHILS % 65.3 % (36.0-66.0); PLATELET COUNT, AUTOMATED 276 10^3/uL (150-450); RED BLOOD COUNT 4.27 10^6/uL (4.00-5.40)
[2021-05-09 12:28] LABS: ALBUMIN 3.9 GM/DL (3.2-5.2); ALT/SGPT 25 U/L (12-78); BILIRUBIN,TOTAL 0.9 MG/DL (0.2-1.0); BLOOD UREA NITROGEN 17 MG/DL (7-18); CALCIUM LEVEL 9.3 MG/DL (8.8-10.2); CARBON DIOXIDE LEVEL 30 MEQ/L (21-32); CHLORIDE LEVEL 110 MEQ/L (98-107); CREATININE FOR GFR 0.76 MG/DL (0.55-1.30); GLOMERULAR FILTRATION RATE > 60.0 (>45); GLUCOSE, FASTING 100 MG/DL (70-100); POTASSIUM SERUM 4.1 MEQ/L (3.5-5.1); SODIUM LEVEL 144 MEQ/L (136-145); TOTAL PROTEIN 6.5 GM/DL (6.4-8.2)
== END ==
LOC: M SFHCCLAY 07:05
PROVIDERS: ATTEND Family Medicine
DX: I10 Essential (primary) hypertension (principal); J45.909 Unspecified asthma, uncomplicated

== ENCOUNTER → 2021-05-09 | Outpatient (CLI) | payer BC | LOC: M LABSMTC 11:25 | PROVIDERS: ATTEND Anesthesiology | DX: Z01.812 Encounter for preprocedural laboratory examination (principal); Z20.822 Contact with and (suspected) exposure to COVID-19 ==

== ENCOUNTER 2021-05-14 08:58 | Day surgery (SDC) | payer BC ==
[2021-05-13] MEDS: EPINEPHrine INJ 1 MG/ML 1ML AMP As Ordered ONE (15:06)
[~2021-05-14] VITALS: Ht 167.6 cm; Wt 95.3 kg
[~2021-05-14 08:58] MED LIST changes: +LIDOCAINE 1% MDV 20ML VIAL SQ PRN; +LR 1,000 ML IV ONE; +MIDAZOLAM INJ 2MG/2ML VIAL (J2250 PER 1MG) IV PRN; +TRANEXAMIC ACID 100 MG/ML 10ML VIAL IV ONE; +ceFAZolin SOD 2 GM in IV 1 EA IV ONE; +fentaNYL 100 MCG/2 ML INJECTION IV PRN; +oxyCODONE 5MG TAB PO ONE
[2021-05-14] MEDS ORDERED: ROPIvacaine 0.5% 30ML INJECTION (J2795 PER 1MG) XX ONE (10:20)
[2021-05-14] MEDS ORDERED: dexameTHASONE 10MG/1ML VIAL PRES.FREE (J1100 PER 1MG) XX ONE (10:20)
[2021-05-14] MEDS ORDERED: EPINEPHrine INJ 1 MG/ML 1ML AMP XX ONE (10:20)
[2021-05-14] MEDS ORDERED: LIDOCAINE 1% MDV 20ML VIAL XX ONE (10:20)
[2021-05-14] MEDS ORDERED: propofoL 200 MG/20 ML VIAL As Ordered ONE (13:05)
[2021-05-14] MEDS ORDERED: ROCURONIUM BROMIDE 50 MG/5 ML VIAL As Ordered ONE (13:05)
[2021-05-14] MEDS ORDERED: LIDOCAINE 2% 100MG/5ML SDV (FOR ANES.) As Ordered ONE (13:05)
[2021-05-14] MEDS ORDERED: fentaNYL 250 MCG/5 ML INJECTION As Ordered ONE (13:06)
[2021-05-14] MEDS ORDERED: MIDAZOLAM INJ 2MG/2ML VIAL (J2250 PER 1MG) As Ordered ONE (13:06)
[2021-05-14] MEDS ORDERED: LIDOCAINE 1% SDV 30ML VIAL As Ordered ONE (13:43)
[2021-05-14] MEDS ORDERED: LIDOCAINE W/EPINEPHRINE 1% 20ML VIAL As Ordered ONE (14:32)
[2021-05-14] MEDS: EPINEPHrine INJ 1 MG/ML 1ML AMP As Ordered ONE (14:35)
[2021-05-14] MEDS ORDERED: TRANEXAMIC ACID 100 MG/ML 10ML VIAL As Ordered ONE (15:10)
[2021-05-14] MEDS ORDERED: ACETAMINOPHEN 1000MG 100ML IV BTL (OFIRMEV) (J0131 PER 10MG) As Ordered ONE (15:42)
[2021-05-14] MEDS ORDERED: ONDANSETRON 4MG/2ML VIAL As Ordered ONE (15:42)
[2021-05-14] MEDS ORDERED: dexameTHASONE 4 MG/ML 1ML VIAL (J1100 PER 1MG) As Ordered ONE (15:42)
[2021-05-14] MEDS ORDERED: KETOROLAC 60MG 2ML VIAL As Ordered ONE (15:42)
[2021-05-14] MEDS ORDERED: SUGAMMADEX SODIUM 500 MG/5 ML VIAL (BRIDION) As Ordered ONE (15:54)
[2021-05-14] MEDS ORDERED: fentaNYL 100 MCG/2 ML INJECTION IV PRN (16:25)
[2021-05-14] MEDS ORDERED: LR 1,000 ML IV SCH (16:25)
[2021-05-14] MEDS ORDERED: oxyCODONE 5MG TAB PO PRN (16:25)
[2021-05-14] MEDS ORDERED: METOCLOPRAMIDE INJ 10MG/2ML VIAL (J2765 PER 1) IV PRN (16:25)
[2021-05-14] MEDS ORDERED: MORPHINE 4 MG/ML 1ML VIAL/SYRINGE (J2270) IV PRN (16:25)
[2021-05-14] MEDS ORDERED: ONDANSETRON 4MG/2ML VIAL IV PRN (16:25)
[2021-05-14] MEDS ORDERED: ENDO5TAB PO (16:37)
[2021-05-14 17:23] VITALS: BP 136/78
== END 2021-05-14 17:30 | disposition home or self-care (01) ==
LOC: M SDC 08:58
PROVIDERS: ATTEND Orthopaedic Surgery
DX: M75.121 Complete rotator cuff tear or rupture of right shoulder, not specified as traumatic (principal); I10 Essential (primary) hypertension; J45.909 Unspecified asthma, uncomplicated; E78.5 Hyperlipidemia, unspecified; Z85.3 Personal history of malignant neoplasm of breast; Z88.5 Allergy status to narcotic agent; Z91.013 Allergy to seafood; Z92.21 Personal history of antineoplastic chemotherapy; Z79.51 Long term (current) use of inhaled steroids; Z87.891 Personal history of nicotine dependence
CPT/HCPCS: 29826; 29827; 64415; C1713; J0131; J0171; J0690; J1100; J1885; J2250; J2405; J3010

== ENCOUNTER → 2021-07-30 | Outpatient (REF) | payer BC ==
[~2021-07-30] MED LIST changes: +ENDO5TAB PO; -LIDOCAINE 1% MDV 20ML VIAL SQ PRN; -LR 1,000 ML IV ONE; -MIDAZOLAM INJ 2MG/2ML VIAL (J2250 PER 1MG) IV PRN; -TRANEXAMIC ACID 100 MG/ML 10ML VIAL IV ONE; -ceFAZolin SOD 2 GM in IV 1 EA IV ONE; -fentaNYL 100 MCG/2 ML INJECTION IV PRN; -oxyCODONE 5MG TAB PO ONE
[2021-07-30 16:30] LABS: BASO # 0.1 10^3/uL (0.0-0.2); BASO % 0.8 % (0.0-1.0); EOS # 0.1 10^3/uL (0.0-0.5); EOS % 1.8 % (0.0-3.0); HEMOGLOBIN 13.8 g/dl (12.0-15.5); LYMPH # 1.7 10^3/uL (1.5-5.0); LYMPH % 23.3 % (24.0-44.0); MEAN CORPUSCULAR HEMOGLOBIN 32.2 pg (27.0-33.0); MEAN CORPUSCULAR HGB CONC 33.7 g/dl (32.0-36.5); MEAN CORPUSCULAR VOLUME 95.6 fl (80.0-96.0); MONO # 0.5 10^3/uL (0.0-0.8); MONO % 7.1 % (2.0-8.0); NEUTROPHILS # 4.8 10^3/uL (1.5-8.5); NEUTROPHILS % 66.7 % (36.0-66.0); PLATELET COUNT, AUTOMATED 285 10^3/uL (150-450); RED BLOOD COUNT 4.29 10^6/uL (4.00-5.40); WHITE BLOOD COUNT 7.2 10^3/uL (4.0-10.0)
[2021-07-30 17:02] LABS: CHOLESTEROL RISK RATIO 2.469 (<5); THYROID STIMULATING HORMONE 1.54 uIU/ML (0.358-3.740)
[2021-07-30 17:13] LABS: TOTAL 25(OH) VITAMIN D 43.6 NG/ML (30.0-100.0)
[2021-07-30 18:00] LABS: HEMOGLOBIN A1c 5.6 %
== END ==
LOC: M SFHCCAPE 07:15
PROVIDERS: ATTEND Physician Assistant
DX: I10 Essential (primary) hypertension (principal); E66.09 Other obesity due to excess calories; E78.5 Hyperlipidemia, unspecified; K21.9 Gastro-esophageal reflux disease without esophagitis; E55.9 Vitamin D deficiency, unspecified

== ENCOUNTER → 2021-11-19 | Outpatient (CLI) | payer BC | LOC: M SOG 08:01 | PROVIDERS: ATTEND Orthopaedic Surgery | DX: M54.50 Low back pain, unspecified (principal) ==

== ENCOUNTER → 2022-01-29 | Outpatient (REF) | payer BC ==
[2022-01-29 17:06] LABS: BASO % 0.5 % (0.0-1.0); EOS # 0.1 10^3/uL (0.0-0.5); EOS % 1.6 % (0.0-3.0); HEMATOCRIT 42.5 % (36.0-47.0); HEMOGLOBIN 13.9 g/dl (12.0-15.5); LYMPH # 1.7 10^3/uL (1.5-5.0); LYMPH % 19.2 % (24.0-44.0); MEAN CORPUSCULAR HEMOGLOBIN 31.7 pg (27.0-33.0); MEAN CORPUSCULAR HGB CONC 32.7 g/dl (32.0-36.5); MONO # 0.4 10^3/uL (0.0-0.8); NEUTROPHILS # 6.3 10^3/uL (1.5-8.5); NEUTROPHILS % 73.5 % (36.0-66.0); PLATELET COUNT, AUTOMATED 330 10^3/uL (150-450); RED BLOOD COUNT 4.38 10^6/uL (4.00-5.40); WHITE BLOOD COUNT 8.6 10^3/uL (4.0-10.0)
[2022-01-29 18:03] LABS: THYROID STIMULATING HORMONE 2.194 uIU/ML (0.55-4.78)
[2022-01-29 18:05] LABS: TOTAL 25(OH) VITAMIN D 40.4 NG/ML (20.0-100.0)
[2022-01-29 18:06] LABS: ALBUMIN 3.7 G/DL (3.2-5.2); ALKALINE PHOSPHATASE 77 U/L (46-116); ALT/SGPT 21 U/L (7.0-40); AST/SGOT 21 U/L (<34); BLOOD UREA NITROGEN 18 MG/DL (9-23); CALCIUM LEVEL 9.1 MG/DL (8.3-10.6); CARBON DIOXIDE LEVEL 27 MMOL/L (20-31); CHLORIDE LEVEL 107 MMOL/L (98-107); CHOLESTEROL LEVEL 135 MG/DL (<200); CHOLESTEROL RISK RATIO 2.66 (<5); CREATININE FOR GFR 0.72 MG/DL (0.55-1.30); GLOMERULAR FILTRATION RATE > 60.0 (>45); GLUCOSE, FASTING 94 MG/DL (74-106); HDL CHOLESTEROL 50.7 MG/DL (>40); LDL CHOLESTEROL 67.5 MG/DL (<100); NON-HDL-C 84 MG/DL; POTASSIUM SERUM 4.9 MMOL/L (3.5-5.1); SODIUM LEVEL 140 MMOL/L (136-145); TOTAL PROTEIN 6.5 G/DL (5.7-8.2); TRIGLYCERIDES LEVEL 84 MG/DL (<150)
== END ==
LOC: M SFHCCAPE 07:11
PROVIDERS: ATTEND Physician Assistant
DX: I10 Essential (primary) hypertension (principal)

== ENCOUNTER → 2022-01-31 | Outpatient (CLI) | payer BC | LOC: M CLY 09:16 | PROVIDERS: ATTEND Physician Assistant | DX: M19.071 Primary osteoarthritis, right ankle and foot (principal); R20.0 Anesthesia of skin; M19.072 Primary osteoarthritis, left ankle and foot ==

== ENCOUNTER → 2022-05-21 | Outpatient (REF) | payer BC ==
[2022-05-21 18:14] LABS: HEMOGLOBIN A1c 5.2 % (4.0-6.0)
== END ==
LOC: M LABDRWCV 16:49
PROVIDERS: ATTEND Surgery
DX: Z86.39 Personal history of other endocrine, nutritional and metabolic disease (principal)

== ENCOUNTER → 2022-06-06 | Outpatient (CLI) | payer BC | LOC: M PAIN 10:30 | PROVIDERS: ATTEND Nurse Practitioner Family | DX: M96.1 Postlaminectomy syndrome, not elsewhere classified (principal); G89.29 Other chronic pain; I10 Essential (primary) hypertension; J45.909 Unspecified asthma, uncomplicated; M48.00 Spinal stenosis, site unspecified; Z96.651 Presence of right artificial knee joint; Z87.891 Personal history of nicotine dependence; Z88.5 Allergy status to narcotic agent; Z91.013 Allergy to seafood; Z79.899 Other long term (current) drug therapy ==

== ENCOUNTER → 2022-07-08 | Outpatient (REF) | payer BC ==
[2022-07-08 17:15] LABS: BLOOD UREA NITROGEN 17 MG/DL (9-23); CREATININE FOR GFR 0.73 MG/DL (0.55-1.30); GLOMERULAR FILTRATION RATE > 60.0 (>45)
== END ==
LOC: M SFHCCAPE 08:16
PROVIDERS: ATTEND Nurse Practitioner Family
DX: M96.1 Postlaminectomy syndrome, not elsewhere classified (principal)

== ENCOUNTER → 2022-07-09 | Outpatient (CLI) | payer BC ==
[~2022-07-09] MED LIST changes: -AMLO1TAB25; +AMLO1TAB25 PO; -ATOR40TA75; +ATOR40TA75 PO; -FURO20TA2; +FURO20TA2 PO; +MELO15TA28 PO; +PROHANCE 279.3MG/ML 15ML VIAL ONE; +PROHANCE 279.3MG/ML 5ML VIAL ONE
== END ==
LOC: M PLAIMG 08:47
PROVIDERS: ATTEND Nurse Practitioner Family
DX: M96.1 Postlaminectomy syndrome, not elsewhere classified (principal)
CPT/HCPCS: 72158; A9576

== ENCOUNTER 2022-07-12 13:10 | Day surgery (SDC) | payer BC ==
[~2022-07-12] VITALS: Ht 162.6 cm; Wt 96.8 kg
[~2022-07-12 13:10] MED LIST changes: +NS 1,000 ML IV ONE; -PROHANCE 279.3MG/ML 15ML VIAL ONE; -PROHANCE 279.3MG/ML 5ML VIAL ONE
[2022-07-12] MEDS ORDERED: fentaNYL 100 MCG/2 ML INJECTION As Ordered ONE (15:36)
[2022-07-12] MEDS ORDERED: propofoL 200 MG/20 ML VIAL As Ordered ONE ×2 (15:36→15:39)
[2022-07-12] MEDS ORDERED: LIDOCAINE 2% 100MG/5ML SDV (FOR ANES.) As Ordered ONE (15:37)
[2022-07-12 16:11] VITALS: BP 164/78
== END 2022-07-12 16:13 | disposition home or self-care (01) ==
LOC: M OPP 13:10
PROVIDERS: ATTEND Internal Medicine Gastroenterology
DX: E66.01 Morbid (severe) obesity due to excess calories (principal); Z68.36 Body mass index [BMI] 36.0-36.9, adult; Z01.818 Encounter for other preprocedural examination; K29.70 Gastritis, unspecified, without bleeding; K21.00 Gastro-esophageal reflux disease with esophagitis, without bleeding; Z87.891 Personal history of nicotine dependence; Z79.02 Long term (current) use of antithrombotics/antiplatelets; Z79.51 Long term (current) use of inhaled steroids; Z79.52 Long term (current) use of systemic steroids; Z79.891 Long term (current) use of opiate analgesic; Z79.899 Other long term (current) drug therapy
CPT/HCPCS: 43239; 88305; J3010

== ENCOUNTER → 2022-07-26 | Outpatient (CLI) | payer BC ==
[~2022-07-26] MED LIST changes: -NS 1,000 ML IV ONE
== END ==
LOC: M PAIN 09:15
PROVIDERS: ATTEND Nurse Practitioner Family
DX: M96.1 Postlaminectomy syndrome, not elsewhere classified (principal); G89.29 Other chronic pain; I10 Essential (primary) hypertension; J45.909 Unspecified asthma, uncomplicated; Z87.891 Personal history of nicotine dependence; Z88.5 Allergy status to narcotic agent; Z91.013 Allergy to seafood; Z79.899 Other long term (current) drug therapy

== ENCOUNTER → 2022-07-29 | Outpatient (REF) | payer BC ==
[2022-07-29 18:46] LABS: HEMATOCRIT 42.1 % (36.0-47.0); HEMOGLOBIN 13.8 g/dl (12.0-15.5); MEAN CORPUSCULAR HEMOGLOBIN 32.1 pg (27.0-33.0); MEAN CORPUSCULAR HGB CONC 32.8 g/dl (32.0-36.5); MEAN CORPUSCULAR VOLUME 97.9 fl (80.0-96.0); PLATELET COUNT, AUTOMATED 269 10^3/uL (150-450); WHITE BLOOD COUNT 7.8 10^3/uL (4.0-10.0)
[2022-07-29 19:11] LABS: ALBUMIN 3.5 G/DL (3.2-5.2); ALKALINE PHOSPHATASE 68 U/L (46-116); ALT/SGPT 33 U/L (7.0-40); AST/SGOT 41 U/L (<34); BILIRUBIN,TOTAL 0.8 MG/DL (0.3-1.2); BLOOD UREA NITROGEN 16 MG/DL (9-23); CALCIUM LEVEL 8.2 MG/DL (8.3-10.6); CARBON DIOXIDE LEVEL 24 MMOL/L (20-31); CHLORIDE LEVEL 109 MMOL/L (98-107); CHOLESTEROL LEVEL 121 MG/DL (<200); CHOLESTEROL RISK RATIO 2.44 (<5); CREATININE FOR GFR 0.72 MG/DL (0.55-1.30); GLOMERULAR FILTRATION RATE > 60.0 (>45); GLUCOSE, FASTING 89 MG/DL (74-106); HDL CHOLESTEROL 49.5 MG/DL (>40); LDL CHOLESTEROL 51.5 MG/DL (<100); NON-HDL-C 71.5 MG/DL; POTASSIUM SERUM 4.9 MMOL/L (3.5-5.1); SODIUM LEVEL 140 MMOL/L (136-145); TOTAL PROTEIN 6.1 G/DL (5.7-8.2); TRIGLYCERIDES LEVEL 100 MG/DL (<150)
== END ==
LOC: M SFHCCAPE 07:14
PROVIDERS: ATTEND Physician Assistant
DX: I10 Essential (primary) hypertension (principal); E78.5 Hyperlipidemia, unspecified

== ENCOUNTER → 2022-09-26 | Outpatient (CLI) | payer BC | LOC: M WHC 07:30 | PROVIDERS: ATTEND Physician Assistant | DX: Z12.31 Encounter for screening mammogram for malignant neoplasm of breast (principal) ==

== ENCOUNTER → 2022-09-26 | Outpatient (REF) | payer BC | LOC: M LAB REF 17:14 | PROVIDERS: ATTEND Internal Medicine Gastroenterology | DX: Z79.899 Other long term (current) drug therapy (principal); B96.81 Helicobacter pylori [H. pylori] as the cause of diseases classified elsewhere ==

== ENCOUNTER → 2022-10-15 | Outpatient (CLI) | payer BC | LOC: M PAIN 15:00 | PROVIDERS: ATTEND Anesthesiology | DX: M96.1 Postlaminectomy syndrome, not elsewhere classified (principal); G89.29 Other chronic pain; I10 Essential (primary) hypertension; J45.909 Unspecified asthma, uncomplicated; Z87.891 Personal history of nicotine dependence; Z88.5 Allergy status to narcotic agent; Z91.013 Allergy to seafood; Z79.899 Other long term (current) drug therapy ==

== ENCOUNTER → 2022-11-15 | Outpatient (CLI) | payer BC | LOC: M PLAIMG 10:24 | PROVIDERS: ATTEND Anesthesiology | DX: M96.1 Postlaminectomy syndrome, not elsewhere classified (principal); M47.896 Other spondylosis, lumbar region ==

== ENCOUNTER → 2022-12-04 | Outpatient (CLI) | payer BC | LOC: M PAIN 09:45 | PROVIDERS: ATTEND Anesthesiology | DX: M79.10 Myalgia, unspecified site (principal); M54.6 Pain in thoracic spine; Z85.3 Personal history of malignant neoplasm of breast; Z85.828 Personal history of other malignant neoplasm of skin; Z87.891 Personal history of nicotine dependence; Z88.5 Allergy status to narcotic agent; Z91.013 Allergy to seafood; Z79.899 Other long term (current) drug therapy ==

== ENCOUNTER → 2023-01-03 | Outpatient (CLI) | payer BC ==
[~2023-01-03] MED LIST changes: +NORCO, ANEXSIA 5/325MG TABLET (HYDROcodone/ACETAMINOPHEN) As Ordered ONE; +TRIAMCINOLONE ACETONIDE SUSP 40MG/ML 1ML VIAL As Ordered ONE; +diazePAM 5MG TABLET As Ordered ONE
== END ==
LOC: M PAIN 10:15
PROVIDERS: ATTEND Anesthesiology
DX: M79.18 Myalgia, other site (principal); G89.29 Other chronic pain; Z85.828 Personal history of other malignant neoplasm of skin; Z87.891 Personal history of nicotine dependence; Z88.5 Allergy status to narcotic agent; Z91.013 Allergy to seafood; Z79.899 Other long term (current) drug therapy
CPT/HCPCS: 20552; J0665; J3301

== ENCOUNTER → 2023-01-30 | Outpatient (REF) | payer OTHER ==
[~2023-01-30] MED LIST changes: -NORCO, ANEXSIA 5/325MG TABLET (HYDROcodone/ACETAMINOPHEN) As Ordered ONE; -TRIAMCINOLONE ACETONIDE SUSP 40MG/ML 1ML VIAL As Ordered ONE; -diazePAM 5MG TABLET As Ordered ONE
[2023-01-30 18:38] LABS: HEMATOCRIT 41.5 % (36.0-47.0); HEMOGLOBIN 13.8 g/dl (12.0-15.5); MEAN CORPUSCULAR HEMOGLOBIN 33.4 pg (27.0-33.0); MEAN CORPUSCULAR HGB CONC 33.3 g/dl (32.0-36.5); MEAN CORPUSCULAR VOLUME 100.5 fl (80.0-96.0); PLATELET COUNT, AUTOMATED 237 10^3/uL (150-450); RED BLOOD COUNT 4.13 10^6/uL (4.00-5.40); WHITE BLOOD COUNT 7.5 10^3/uL (4.0-10.0)
[2023-01-30 19:09] LABS: ALBUMIN 3.5 G/DL (3.2-5.2); ALKALINE PHOSPHATASE 74 U/L (46-116); ALT/SGPT 45 U/L (7.0-40); AST/SGOT 32 U/L (<34); BILIRUBIN,TOTAL 1.3 MG/DL (0.3-1.2); BLOOD UREA NITROGEN 9 MG/DL (9-23); CALCIUM LEVEL 8.9 MG/DL (8.3-10.6); CARBON DIOXIDE LEVEL 27 MMOL/L (20-31); CHLORIDE LEVEL 107 MMOL/L (98-107); CHOLESTEROL LEVEL 117 MG/DL (<200); CHOLESTEROL RISK RATIO 2.31 (<5); CREATININE FOR GFR 0.58 MG/DL (0.55-1.30); GLOMERULAR FILTRATION RATE > 60.0 (>45); GLUCOSE, FASTING 90 MG/DL (74-106); HDL CHOLESTEROL 50.5 MG/DL (>40); LDL CHOLESTEROL 42.3 MG/DL (<100); NON-HDL-C 66.5 MG/DL; POTASSIUM SERUM 4.1 MMOL/L (3.5-5.1); SODIUM LEVEL 143 MMOL/L (136-145); TOTAL 25(OH) VITAMIN D 46.6 NG/ML (20.0-100.0); TOTAL PROTEIN 6.2 G/DL (5.7-8.2); TRIGLYCERIDES LEVEL 121 MG/DL (<150)
== END ==
LOC: M SFHCCAPE 09:49
PROVIDERS: ATTEND Physician Assistant Medical
DX: I10 Essential (primary) hypertension (principal); E55.9 Vitamin D deficiency, unspecified; E78.5 Hyperlipidemia, unspecified

== ENCOUNTER → 2023-02-03 | Outpatient (CLI) | payer OTHER | LOC: M PAIN 11:45 | PROVIDERS: ATTEND Nurse Practitioner Family | DX: M51.14 Intervertebral disc disorders with radiculopathy, thoracic region (principal); G89.29 Other chronic pain; Z85.3 Personal history of malignant neoplasm of breast; Z85.828 Personal history of other malignant neoplasm of skin; Z87.891 Personal history of nicotine dependence; Z88.5 Allergy status to narcotic agent; Z91.013 Allergy to seafood; Z79.899 Other long term (current) drug therapy ==

== ENCOUNTER → 2023-03-06 | Outpatient (REF) | payer OTHER ==
[2023-03-06 18:12] LABS: BASO % 0.5 % (0.0-1.0); EOS # 0.1 10^3/uL (0.0-0.5); HEMATOCRIT 40.7 % (36.0-47.0); HEMOGLOBIN 13.8 g/dl (12.0-15.5); LYMPH % 23.4 % (24.0-44.0); MEAN CORPUSCULAR HEMOGLOBIN 33.3 pg (27.0-33.0); MEAN CORPUSCULAR HGB CONC 33.9 g/dl (32.0-36.5); MEAN CORPUSCULAR VOLUME 98.1 fl (80.0-96.0); MONO # 0.5 10^3/uL (0.0-0.8); MONO % 5.6 % (2.0-8.0); NEUTROPHILS % 69.3 % (36.0-66.0); PLATELET COUNT, AUTOMATED 320 10^3/uL (150-450); RED BLOOD COUNT 4.15 10^6/uL (4.00-5.40); WHITE BLOOD COUNT 8.6 10^3/uL (4.0-10.0)
[2023-03-06 18:17] LABS: HEMATOCRIT 40.7 % (36.0-47.0)
[2023-03-06 18:37] LABS: ALBUMIN 3.5 G/DL (3.2-5.2); ALKALINE PHOSPHATASE 74 U/L (46-116); ALT/SGPT 32 U/L (7.0-40); AST/SGOT 23 U/L (<34); BILIRUBIN,TOTAL 1.2 MG/DL (0.3-1.2); BLOOD UREA NITROGEN 13 MG/DL (9-23); CALCIUM LEVEL 8.7 MG/DL (8.3-10.6); CARBON DIOXIDE LEVEL 28 MMOL/L (20-31); CHLORIDE LEVEL 110 MMOL/L (98-107); CREATININE FOR GFR 0.59 MG/DL (0.55-1.30); FERRITIN 128.9 NG/ML (7.3-270.7); GLOMERULAR FILTRATION RATE > 60.0 (>45); GLUCOSE, FASTING 83 MG/DL (74-106); IRON (FE) 117 UG/DL (50-170); MAGNESIUM LEVEL 1.9 MG/DL (1.8-2.4); PERCENT SATURATION 34.3 % (13.2-45.0); PHOSPHORUS LEVEL 3.7 MG/DL (2.4-5.1); POTASSIUM SERUM 4.2 MMOL/L (3.5-5.1); SODIUM LEVEL 144 MMOL/L (136-145); TOTAL IRON BINDING CAPACITY 341 UG/DL (250-425)
[2023-03-06 18:39] LABS: VITAMIN B12 LEVEL 920 PG/ML (211-911)
[2023-03-06 19:14] LABS: HEMOGLOBIN A1c 4.9 % (4.0-6.0)
== END ==
LOC: M LABDRWCV 17:13
PROVIDERS: ATTEND Physician Assistant Surgical
DX: K91.2 Postsurgical malabsorption, not elsewhere classified (principal); E55.9 Vitamin D deficiency, unspecified; Z86.39 Personal history of other endocrine, nutritional and metabolic disease; Z98.84 Bariatric surgery status

== ENCOUNTER → 2023-05-09 | Outpatient (CLI) | payer OTHER | LOC: M PAIN 09:15 | PROVIDERS: ATTEND Nurse Practitioner Family | DX: M51.14 Intervertebral disc disorders with radiculopathy, thoracic region (principal); I10 Essential (primary) hypertension; J45.909 Unspecified asthma, uncomplicated; E78.5 Hyperlipidemia, unspecified; M65.9 Synovitis and tenosynovitis, unspecified; N95.9 Unspecified menopausal and perimenopausal disorder; Z87.891 Personal history of nicotine dependence; Z79.02 Long term (current) use of antithrombotics/antiplatelets; Z79.51 Long term (current) use of inhaled steroids; Z79.810 Long term (current) use of selective estrogen receptor modulators (SERMs); Z79.891 Long term (current) use of opiate analgesic; Z79.899 Other long term (current) drug therapy; Z88.5 Allergy status to narcotic agent; Z91.013 Allergy to seafood ==

== ENCOUNTER → 2023-05-29 | Outpatient (CLI) | payer OTHER | LOC: M CLY 09:19 | PROVIDERS: ATTEND Family Medicine | DX: Z01.818 Encounter for other preprocedural examination (principal); I10 Essential (primary) hypertension ==

== ENCOUNTER → 2023-05-29 | Outpatient (REF) | payer OTHER ==
[2023-05-29 12:22] LABS: BASO # 0.1 10^3/uL (0.0-0.2); BASO % 0.8 % (0.0-1.0); EOS # 0.2 10^3/uL (0.0-0.5); HEMATOCRIT 39.7 % (36.0-47.0); HEMOGLOBIN 13.4 g/dl (12.0-15.5); LYMPH % 27.2 % (24.0-44.0); MEAN CORPUSCULAR HEMOGLOBIN 33.6 pg (27.0-33.0); MEAN CORPUSCULAR HGB CONC 33.8 g/dl (32.0-36.5); MEAN CORPUSCULAR VOLUME 99.5 fl (80.0-96.0); MONO # 0.5 10^3/uL (0.0-0.8); MONO % 7.1 % (2.0-8.0); NEUTROPHILS # 4.7 10^3/uL (1.5-8.5); NEUTROPHILS % 62.6 % (36.0-66.0); PLATELET COUNT, AUTOMATED 308 10^3/uL (150-450); RED BLOOD COUNT 3.99 10^6/uL (4.00-5.40); WHITE BLOOD COUNT 7.5 10^3/uL (4.0-10.0)
[2023-05-29 12:49] LABS: ALBUMIN 3.7 G/DL (3.2-5.2); ALKALINE PHOSPHATASE 74 U/L (46-116); ALT/SGPT 26 U/L (7.0-40); AST/SGOT 19 U/L (<34); BILIRUBIN,TOTAL 1.4 MG/DL (0.3-1.2); BLOOD UREA NITROGEN 14 MG/DL (9-23); CALCIUM LEVEL 9.1 MG/DL (8.3-10.6); CARBON DIOXIDE LEVEL 31 MMOL/L (20-31); CHLORIDE LEVEL 107 MMOL/L (98-107); CREATININE FOR GFR 0.65 MG/DL (0.55-1.30); GLOMERULAR FILTRATION RATE > 60.0 (>45); GLUCOSE, FASTING 103 MG/DL (74-106); POTASSIUM SERUM 4.1 MMOL/L (3.5-5.1); SODIUM LEVEL 143 MMOL/L (136-145)
== END ==
LOC: M SFHCCLAY 08:56
PROVIDERS: ATTEND Family Medicine
DX: Z01.818 Encounter for other preprocedural examination (principal); I10 Essential (primary) hypertension

== ENCOUNTER 2023-06-12 05:51 | Observation (INO) | payer OTHER ==
[2023-06-12] VITALS (7 sets, daily range): BP systolic 111–117; BP diastolic 60–67; TEMP 97.5–99; O2SAT 97–99
[~2023-06-12] VITALS: Ht 167.6 cm; Wt 66.2 kg
[~2023-06-12 05:51] MED LIST changes: +CALC600C3 PO; +CYAN500T14 PO; +THERTAB52 PO
[2023-06-12] MEDS ORDERED: LR 1,000 ML IV SCH (07:10)
[2023-06-12] MEDS ORDERED: MIDAZOLAM INJ 2MG/2ML VIAL As Ordered ONE (07:25)
[2023-06-12] MEDS ORDERED: ONDANSETRON 4MG 2ML VIAL As Ordered ONE (07:25)
[2023-06-12] MEDS ORDERED: dexmedeTOMIDine (4MCG/ML)200MCG/50ML BTL (PRECEDEX) As Ordered ONE (07:25)
[2023-06-12] MEDS ORDERED: fentaNYL 250 MCG/5 ML INJECTION As Ordered ONE (07:25)
[2023-06-12] MEDS ORDERED: ROCURONIUM BROMIDE 50MG/5ML VIAL As Ordered ONE (07:25)
[2023-06-12] MEDS ORDERED: LIDOCAINE 2% 100MG/5ML SDV (FOR ANES.) As Ordered ONE (07:25)
[2023-06-12] MEDS ORDERED: propofoL 200 MG/20 ML VIAL As Ordered ONE (07:25)
[2023-06-12] MEDS ORDERED: ePHEDrine SULFATE 25 MG/5 ML(5MG/ML) SYRINGE As Ordered ONE (08:10)
[2023-06-12] MEDS ORDERED: PHENYLephrine 500MCG 5ML (100MCG/ML) SYRINGE As Ordered ONE (08:10)
[2023-06-12] MEDS: ceFAZolin SOD 2 GM in IV 1 EA IV ONE (08:15)
[2023-06-12] MEDS: HEPARIN SOD (PORCINE) 5000UNITS/ML 1ML VIAL/SYRINGE SQ ONE (08:15)
[2023-06-12] MEDS ORDERED: LACRILUBE (AKWA TEARS) OPHTH OINT 3.5GM As Ordered ONE (08:32)
[2023-06-12] MEDS: GENTAMICIN SULF 80MG/2ML VIAL As Ordered ONE (09:15)
[2023-06-12] MEDS ORDERED: SUGAMMADEX SODIUM 500 MG/5 ML VIAL (BRIDION) As Ordered ONE (09:23)
[2023-06-12] MEDS ORDERED: ACETAMINOPHEN 1000MG 100ML IV BAG As Ordered ONE (09:23)
[2023-06-12] MEDS ORDERED: METOCLOPRAMIDE INJ 10MG/2ML VIAL As Ordered ONE (09:24)
[2023-06-12] MEDS: EPINEPHrine INJ 1 MG/ML 1ML AMP As Ordered ONE (11:17)
[2023-06-12] MEDS: LIDOCAINE 1% MDV 20ML VIAL As Ordered ONE (11:17)
[2023-06-12] MEDS: LR 1,000 ML IV SCH ×2 (12:00→17:17)
[2023-06-12] MEDS ORDERED: ONDANSETRON 4MG 2ML VIAL IV PRN ×2 (12:00→12:15)
[2023-06-12] MEDS ORDERED: ALBUTEROL 90 MCG/ACT 8GM HFA INHALER INH PRN (12:15)
[2023-06-12] MEDS ORDERED: ACETAMINOPHEN TAB 650MG DOSE (2X325MG) PO PRN (12:15)
[2023-06-12] MEDS: fentaNYL 100 MCG/2 ML INJECTION IV PRN (12:18)
[2023-06-12] MEDS: HYDROMORPHONE HCL 0.5 MG/ 0.5 ML SYRINGE IV PRN (12:28)
[2023-06-12] MEDS: oxyCODONE 5MG TAB PO PRN (12:49)
[2023-06-12] MEDS: ceFAZolin 2 GM/D5W 50 ML IV BAG As Ordered ONE (13:10)
[2023-06-12] MEDS: ceFAZolin SOD 1 GM in D5W MINI-BAG PLUS 50 ML IV SCH (17:18)
[2023-06-12] MEDS: PERCOCET 5MG/325MG TAB PO PRN (20:13)
[2023-06-13 02:00] VITALS: BP 113/60; TEMP 98.1; O2SAT 98
[2023-06-13 06:00] VITALS: BP 112/62; TEMP 98.4; O2SAT 96
[2023-06-13 10:10] VITALS: BP 112/63; TEMP 98.6; O2SAT 95
[2023-06-13] MEDS: METOPROLOL SUCC (TopROL XL) 50MG **XL** TAB PO SCH (10:12)
[2023-06-13] MEDS: ATORVASTATIN 20 MG TAB PO SCH (10:13)
[2023-06-13] MEDS: FUROSEMIDE 20 MG TAB PO SCH (10:13)
[2023-06-13] MEDS: traMADol 50 MG TAB PO PRN (10:17)
[2023-06-13] MEDS: TAMOXIFEN CITRATE 10 MG TAB PO SCH (10:18)
[2023-06-13 10:26] VITALS: BP 114/63
[2023-06-13] MEDS ORDERED: PERCOCET PO (11:28)
== END 2023-06-13 12:55 | disposition home or self-care (01) ==
LOC: M SDC 05:51 → M MS5PR 05:52
PROVIDERS: ADMIT Plastic Surgery Surgery of the Hand; ATTEND Plastic Surgery Surgery of the Hand
DX: N65.1 Disproportion of reconstructed breast (principal); Z85.3 Personal history of malignant neoplasm of breast; Z92.3 Personal history of irradiation; L91.0 Hypertrophic scar; I10 Essential (primary) hypertension; E78.00 Pure hypercholesterolemia, unspecified; J45.909 Unspecified asthma, uncomplicated; Z88.5 Allergy status to narcotic agent; Z91.013 Allergy to seafood; Z79.899 Other long term (current) drug therapy
CPT/HCPCS: 19316; 19318; 88302; 88304; 88305; 96374; 96376; C9290; J0131; J0665; J0690; J1100; J1170; J1580; J2250; J2371; J2405; J2765; J3010

== ENCOUNTER → 2023-07-07 | Outpatient (CLI) | payer OTHER ==
[~2023-07-07] MED LIST changes: +PERCOCET PO
== END ==
LOC: M PAIN 11:00
PROVIDERS: ATTEND Nurse Practitioner Family
DX: M51.14 Intervertebral disc disorders with radiculopathy, thoracic region (principal); G89.29 Other chronic pain; I10 Essential (primary) hypertension; J45.909 Unspecified asthma, uncomplicated; E78.5 Hyperlipidemia, unspecified; M54.50 Low back pain, unspecified; Z87.891 Personal history of nicotine dependence; Z79.899 Other long term (current) drug therapy; Z88.5 Allergy status to narcotic agent; Z88.6 Allergy status to analgesic agent; Z91.013 Allergy to seafood

== ENCOUNTER → 2023-08-04 | Outpatient (REF) | payer OTHER ==
[2023-08-04 17:40] LABS: BASO % 0.6 % (0.0-1.0); EOS # 0.1 10^3/uL (0.0-0.5); EOS % 1.8 % (0.0-3.0); HEMATOCRIT 41.8 % (36.0-47.0); HEMOGLOBIN 14.1 g/dl (12.0-15.5); LYMPH # 1.6 10^3/uL (1.5-5.0); LYMPH % 24.5 % (24.0-44.0); MEAN CORPUSCULAR HEMOGLOBIN 33.8 pg (27.0-33.0); MEAN CORPUSCULAR HGB CONC 33.7 g/dl (32.0-36.5); MEAN CORPUSCULAR VOLUME 100.2 fl (80.0-96.0); MONO # 0.4 10^3/uL (0.0-0.8); MONO % 5.9 % (2.0-8.0); NEUTROPHILS # 4.4 10^3/uL (1.5-8.5); NEUTROPHILS % 66.9 % (36.0-66.0); PLATELET COUNT, AUTOMATED 282 10^3/uL (150-450); RED BLOOD COUNT 4.17 10^6/uL (4.00-5.40); WHITE BLOOD COUNT 6.6 10^3/uL (4.0-10.0)
[2023-08-04 18:11] LABS: ALBUMIN 3.8 G/DL (3.2-5.2); ALKALINE PHOSPHATASE 82 U/L (46-116); ALT/SGPT 24 U/L (7.0-40); AST/SGOT 20 U/L (<34); BILIRUBIN,TOTAL 1.3 MG/DL (0.3-1.2); BLOOD UREA NITROGEN 12 MG/DL (9-23); CALCIUM LEVEL 9.4 MG/DL (8.3-10.6); CARBON DIOXIDE LEVEL 30 MMOL/L (20-31); CHLORIDE LEVEL 107 MMOL/L (98-107); CHOLESTEROL LEVEL 132 MG/DL (<200); CHOLESTEROL RISK RATIO 2.02 (<5); CREATININE FOR GFR 0.66 MG/DL (0.55-1.30); GLOMERULAR FILTRATION RATE > 60.0 (>45); GLUCOSE, FASTING 82 MG/DL (74-106); HDL CHOLESTEROL 65.3 MG/DL (>40); LDL CHOLESTEROL 49.9 MG/DL (<100); NON-HDL-C 66.7 MG/DL; POTASSIUM SERUM 4.2 MMOL/L (3.5-5.1); SODIUM LEVEL 145 MMOL/L (136-145); TOTAL PROTEIN 6.5 G/DL (5.7-8.2); TRIGLYCERIDES LEVEL 84 MG/DL (<150)
== END ==
LOC: M SFHCCAPE 07:32
PROVIDERS: ATTEND Physician Assistant Medical
DX: I10 Essential (primary) hypertension (principal); K21.9 Gastro-esophageal reflux disease without esophagitis; E78.5 Hyperlipidemia, unspecified

== ENCOUNTER → 2023-08-06 | Outpatient (REF) | payer OTHER ==
[2023-08-06 18:23] LABS: HEMATOCRIT 39.5 % (36.0-47.0); HEMOGLOBIN 13.1 g/dl (12.0-15.5); MEAN CORPUSCULAR HEMOGLOBIN 33.4 pg (27.0-33.0); MEAN CORPUSCULAR HGB CONC 33.2 g/dl (32.0-36.5); MEAN CORPUSCULAR VOLUME 100.8 fl (80.0-96.0); PLATELET COUNT, AUTOMATED 261 10^3/uL (150-450); RED BLOOD COUNT 3.92 10^6/uL (4.00-5.40); WHITE BLOOD COUNT 7.1 10^3/uL (4.0-10.0)
[2023-08-06 19:40] LABS: HEMOGLOBIN A1c 4.7 % (4.0-6.0)
[2023-08-06 19:48] LABS: IRON (FE) 139 UG/DL (50-170); PERCENT SATURATION 39.8 % (13.2-45.0); TOTAL IRON BINDING CAPACITY 349 UG/DL (250-425)
[2023-08-06 20:03] LABS: ALBUMIN 3.7 G/DL (3.2-5.2); ALKALINE PHOSPHATASE 80 U/L (46-116); ALT/SGPT 25 U/L (7.0-40); AST/SGOT 20 U/L (<34); BILIRUBIN,TOTAL 1.9 MG/DL (0.3-1.2); BLOOD UREA NITROGEN 15 MG/DL (9-23); CALCIUM LEVEL 9.2 MG/DL (8.3-10.6); CARBON DIOXIDE LEVEL 26 MMOL/L (20-31); CHLORIDE LEVEL 106 MMOL/L (98-107); CREATININE FOR GFR 0.64 MG/DL (0.55-1.30); GLOMERULAR FILTRATION RATE > 60.0 (>45); GLUCOSE, FASTING 90 MG/DL (74-106); POTASSIUM SERUM 4.5 MMOL/L (3.5-5.1); SODIUM LEVEL 140 MMOL/L (136-145); TOTAL 25(OH) VITAMIN D 41.8 NG/ML (20.0-100.0); TOTAL PROTEIN 6.1 G/DL (5.7-8.2); VITAMIN B12 LEVEL 798 PG/ML (211-911)
== END ==
LOC: M LABDRWCV 17:25 → M LABDRWAD 17:25
PROVIDERS: ATTEND Physician Assistant Surgical
DX: Z98.84 Bariatric surgery status (principal)

== ENCOUNTER → 2023-08-20 | Outpatient (CLI) | payer OTHER | LOC: M PAIN 14:30 | PROVIDERS: ATTEND Anesthesiology | DX: M54.6 Pain in thoracic spine (principal); M79.10 Myalgia, unspecified site; M79.18 Myalgia, other site; M54.50 Low back pain, unspecified; M47.816 Spondylosis without myelopathy or radiculopathy, lumbar region; M96.1 Postlaminectomy syndrome, not elsewhere classified; I10 Essential (primary) hypertension; J45.909 Unspecified asthma, uncomplicated; E78.5 Hyperlipidemia, unspecified; G89.29 Other chronic pain; Z87.891 Personal history of nicotine dependence; Z88.5 Allergy status to narcotic agent; Z91.013 Allergy to seafood; Z79.899 Other long term (current) drug therapy | CPT/HCPCS: 76000; G0463 ==

== ENCOUNTER → 2024-02-09 | Outpatient (REF) | payer BC ==
[~2024-02-09] MED LIST changes: +GABA-1172; -GABA-282
[2024-02-09 18:40] LABS: BASO # 0.1 10^3/uL (0.0-0.2); BASO % 0.8 % (0.0-1.0); EOS # 0.2 10^3/uL (0.0-0.5); EOS % 2.9 % (0.0-3.0); HEMATOCRIT 41.6 % (36.0-47.0); HEMOGLOBIN 14.2 g/dl (12.0-15.5); LYMPH # 2.3 10^3/uL (1.5-5.0); LYMPH % 32.2 % (24.0-44.0); MEAN CORPUSCULAR HEMOGLOBIN 33.2 pg (27.0-33.0); MEAN CORPUSCULAR HGB CONC 34.1 g/dl (32.0-36.5); MEAN CORPUSCULAR VOLUME 97.2 fl (80.0-96.0); MONO # 0.5 10^3/uL (0.0-0.8); MONO % 6.2 % (2.0-8.0); NEUTROPHILS # 4.2 10^3/uL (1.5-8.5); NEUTROPHILS % 57.8 % (36.0-66.0); PLATELET COUNT, AUTOMATED 303 10^3/uL (150-450); RED BLOOD COUNT 4.28 10^6/uL (4.00-5.40); WHITE BLOOD COUNT 7.3 10^3/uL (4.0-10.0)
[2024-02-09 19:04] LABS: VITAMIN B12 LEVEL 776 PG/ML (211-911)
[2024-02-09 19:06] LABS: ALBUMIN 3.7 G/DL (3.2-5.2); ALKALINE PHOSPHATASE 90 U/L (35-104); ALT/SGPT 37 U/L (7.0-40); AST/SGOT 22 U/L (<34); BILIRUBIN,TOTAL 1.4 MG/DL (0.3-1.2); BLOOD UREA NITROGEN 11 MG/DL (9-23); CALCIUM LEVEL 9.8 MG/DL (8.3-10.6); CARBON DIOXIDE LEVEL 30 MMOL/L (20-31); CHLORIDE LEVEL 107 MMOL/L (98-107); CHOLESTEROL LEVEL 155 MG/DL (<200); CHOLESTEROL RISK RATIO 2.17 (<5); CREATININE FOR GFR 0.62 MG/DL (0.55-1.30); GLOMERULAR FILTRATION RATE > 60.0 (>45); GLUCOSE, FASTING 88 MG/DL (74-106); HDL CHOLESTEROL 71.2 MG/DL (>40); LDL CHOLESTEROL 61.8 MG/DL (<100); NON-HDL-C 83.8 MG/DL; POTASSIUM SERUM 4.4 MMOL/L (3.5-5.1); SODIUM LEVEL 145 MMOL/L (136-145); TOTAL PROTEIN 6.4 G/DL (5.7-8.2); TRIGLYCERIDES LEVEL 110 MG/DL (<150)
[2024-02-09 19:07] LABS: FOLATE > 24.0 NG/ML (>5.4)
== END ==
LOC: M SFHCCAPE 07:25
PROVIDERS: ATTEND Physician Assistant Medical
DX: Z98.890 Other specified postprocedural states (principal); I10 Essential (primary) hypertension; E78.5 Hyperlipidemia, unspecified

== ENCOUNTER → 2024-03-02 | Outpatient (CLI) | payer BC | LOC: M WHC 09:50 | PROVIDERS: ATTEND Physician Assistant Medical | DX: Z12.31 Encounter for screening mammogram for malignant neoplasm of breast (principal); Z85.3 Personal history of malignant neoplasm of breast; R92.323 Mammographic fibroglandular density, bilateral breasts ==

== ENCOUNTER → 2024-04-05 | Outpatient (CLI) | payer BC | LOC: M SOG 13:03 | PROVIDERS: ATTEND Orthopaedic Surgery | DX: M25.512 Pain in left shoulder (principal) ==

== ENCOUNTER → 2024-05-04 | Outpatient (CLI) | payer BC | LOC: M PLAIMG 10:53 | PROVIDERS: ATTEND Orthopaedic Surgery | DX: M75.112 Incomplete rotator cuff tear or rupture of left shoulder, not specified as traumatic (principal); Y93.9 Activity, unspecified; Y92.9 Unspecified place or not applicable ==

== ENCOUNTER → 2024-09-09 | Outpatient (CLI) | payer BC ==
[~2024-09-09] MED LIST changes: +LISI40TA10; -LISI40TA4
== END ==
LOC: M WHC 07:48
PROVIDERS: ATTEND Physician Assistant Medical
DX: N63.24 Unspecified lump in the left breast, lower inner quadrant (principal); R92.322 Mammographic fibroglandular density, left breast

== ENCOUNTER → 2024-09-22 | Outpatient (CLI) | payer BC | LOC: M RAD 08:27 | PROVIDERS: ATTEND Physician Assistant Medical | DX: E80.6 Other disorders of bilirubin metabolism (principal) ==

== ENCOUNTER → 2024-12-03 | Outpatient (CLI) | payer MEDICARE | LOC: M RAD 08:11 | PROVIDERS: ATTEND Physician Assistant Medical | DX: E80.6 Other disorders of bilirubin metabolism (principal); K83.8 Other specified diseases of biliary tract ==

== ENCOUNTER → 2025-01-13 | Outpatient (CLI) | payer MEDICARE | LOC: M SOG 07:35 | PROVIDERS: ATTEND Orthopaedic Surgery | DX: M75.122 Complete rotator cuff tear or rupture of left shoulder, not specified as traumatic (principal) ==

== ENCOUNTER → 2025-02-15 | Outpatient (REF) | payer MEDICARE ==
[2025-02-15 18:20] LABS: ALT/SGPT 57 U/L (7.0-40); AST/SGOT 59 U/L (<34); CALCIUM LEVEL 8.8 MG/DL (8.3-10.6); CARBON DIOXIDE LEVEL 30 MMOL/L (20-31); CHLORIDE LEVEL 105 MMOL/L (98-107); CHOLESTEROL LEVEL 136 MG/DL (<200); CHOLESTEROL RISK RATIO 2.22 (<5); CREATININE FOR GFR 0.67 MG/DL (0.55-1.30); GLOMERULAR FILTRATION RATE > 90.0 (>45); LDL CHOLESTEROL 61.4 MG/DL (<100); NON-HDL-C 74.8 MG/DL; POTASSIUM SERUM 4.0 MMOL/L (3.5-5.1); SODIUM LEVEL 143 MMOL/L (136-145); TRIGLYCERIDES LEVEL 67 MG/DL (<150)
[2025-02-15 18:24] LABS: VITAMIN B12 LEVEL 1563 PG/ML (211-911)
[2025-02-15 18:28] LABS: BASO # 0.0 10^3/uL (0.0-0.2); BASO % 0.4 % (0.0-1.0); EOS # 0.1 10^3/uL (0.0-0.5); EOS % 1.9 % (0.0-3.0); LYMPH # 1.8 10^3/uL (1.5-5.0); LYMPH % 26.0 % (24.0-44.0); MONO # 0.6 10^3/uL (0.0-0.8); MONO % 8.7 % (2.0-8.0); NEUTROPHILS # 4.4 10^3/uL (1.5-8.5); NEUTROPHILS % 62.9 % (36.0-66.0); PLATELET COUNT, AUTOMATED 312 10^3/uL (150-450)
== END ==
LOC: M SFHCCAPE 07:10
PROVIDERS: ATTEND Physician Assistant Medical
DX: E80.6 Other disorders of bilirubin metabolism (principal); I10 Essential (primary) hypertension; Z98.890 Other specified postprocedural states; D05.12 Intraductal carcinoma in situ of left breast; E78.5 Hyperlipidemia, unspecified